=== PATIENT | male | born 1960 | race Caucasian/White ===

== ENCOUNTER 2016-08-16 16:17 | Emergency (ER) | payer OTHER ==
[~2016-08-16] VITALS: Ht 180.3 cm; Wt 147.4 kg
[2016-08-16] MEDS ORDERED: METF500T4 PO (17:56)
[2016-08-16] MEDS ORDERED: PRAV10TA2 PO (17:57)
[2016-08-16] MEDS ORDERED: FURO20TA3 PO (17:57)
[2016-08-16] MEDS ORDERED: GLIM1TAB2 PO (17:59)
[2016-08-16] MEDS ORDERED: RIVA10TA PO (17:59)
[2016-08-16] MEDS ORDERED: CARV3.122 PO (17:59)
--- NOTE | 2016-08-16 18:24 | PHYS DOC ---
Past Medical History Past Medical History: A-Fib, Diabetes-Type II, High Cholesterol, Hypertension, Hypothyroid Past Surgical History: Other Additional Past Surgical Histo: Vasectomy. Alcohol Use: Occasionally Drug Use: None Adult General Chief Complaint Chief Complaint: ABDOMINAL PAIN HPI HPI Patient is a 56 year old female who presents with abdominal pain. Patient reports 2 weeks ago he was lifting heavy batteries at work when he felt a pop in his umbilicus. He has had a small, reducible bulge at that site since then. He became concerned because over the past 2 days he has been having some lower abdominal pain accompanied by nausea and vomiting. No clear inciting or mitigating factors. No fever. He has not taken anything for pain at home. Review of Systems Review of Systems Constitutional: Denies fever or chills Eyes: Denies change in visual acuity or eye pain HENT: Denies nasal congestion or sore throat Respiratory: Cough. Denies shortness of breath Cardiovascular: Denies chest pain GI: Abdominal pain, nausea, vomiting. Denies bloody stools or diarrhea : Denies dysuria or hematuria Musculoskeletal: Denies back pain or joint pain Integument: Denies rash or skin lesions Neurologic: Denies headache, focal weakness or sensory changes Current Medications Current Medications Current Medications Medications (Trade) Dose Ordered Sig/[place] Start Time Stop Time Status Last Admin Dose Admin Info (Do NOT chart on this entry -- for MONITORING) 1 each PRN DAILY PRN 08/16/16 18:45 08/18/16 18:44 Iohexol (Omnipaque 300 Mg/ml) 75 ml 1X ONCE 08/16/16 18:45 08/16/16 18:46 DC 08/16/16 19:19 75 ML Morphine Sulfate 4 mg 1X ONCE 08/16/16 18:30 08/16/16 18:31 DC 08/16/16 19:01 4 MG Ondansetron HCl 4 mg 4 mg 1X ONCE 08/16/16 18:30 08/16/16 18:31 DC 08/16/16 19:00 4 MG Sodium Chloride (Iv Sodium Chloride 0.9% 500ml Bag) 500 ml @ 500 mls/hr 1X ONCE 08/16/16 18:30 08/16/16 19:29 DC 08/16/16 19:03 500 MLS/HR Allergies Allergies Allergies Coded Allergies Type Severity Reaction Last Updated Verified latex Allergy Intermediate Rash. 08/16/16 Yes Uncoded Allergies Type Severity Reaction Last Updated Verified gas-petroleum Allergy Unknown Blisters. 08/16/16 Physical Exam Physical Exam Constitutional: Well developed, well nourished, no acute distress, non-toxic appearance HENT: Normocephalic, atraumatic, bilateral external ears normal Eyes: EOMI, conjunctiva normal, no discharge Neck: Normal range of motion, no stridor Cardiovascular: Heart rate normal, regular rhythm, no murmur Lungs & Thorax: Bilateral breath sounds clear to auscultation Abdomen: Bowel sounds normal, soft, non-distended, lower abdomen mildly TTP without guarding or rebound. Small umbilical hernia soft, easily reducible. Skin: Warm, dry, no erythema, no rash Extremities: No obvious deformity, no edema Neurologic: Alert and oriented X 3, no gross deficits noted Psychologic: Affect normal, judgement normal, mood normal Current Patient Data Vital Signs Vital Signs Date Time Temp Pulse Resp B/P Pulse Ox O2 Delivery O2 Flow Rate FiO2 08/16/16 19:45 96 08/16/16 19:30 158/81 08/16/16 19:01 18 96 Room Air 08/16/16 17:50 98.3 98.3 Lab Values Laboratory Tests Test 08/16/16 18:40 08/16/16 19:00 White Blood Count 6.6x10^3/uL (4.0-11.0) Red Blood Count 4.82x10^6/uL (4.30-5.70) Hemoglobin 15.8g/dL (13.0-17.5) Hematocrit 47.1% (39.0-53.0) Mean Corpuscular Volume 98fL (79-100) Mean Corpuscular Hemoglobin 33pg (25-35) Mean Corpuscular Hemoglobin Concent 33g/dL (31-37) Red Cell Distribution Width 13.5% (11.5-14.5) Platelet Count 174x10^3/uL (140-400) Neutrophils (%) (Auto) 56% (31-73) Lymphocytes (%) (Auto) 18% (24-48) L Monocytes (%) (Auto) 24% (0-9) H Eosinophils (%) (Auto) 1% (0-3) Basophils (%) (Auto) 1% (0-3) Neutrophils # (Auto) 3.7x10^3uL (1.8-7.7) Lymphocytes # (Auto) 1.2x10^3/uL (1.0-4.8) Monocytes # (Auto) 1.6x10^3/uL (0.0-1.1) H Eosinophils # (Auto) 0.0x10^3/uL (0.0-0.7) Basophils # (Auto) 0.1x10^3/uL (0.0-0.2) Segmented Neutrophils % 64% (35-66) Lymphocytes % 19% (24-48) L Monocytes % 16% (0-10) H Metamyelocytes % 1% (0-0) H Platelet Estimate Adequate (ADEQUATE) Sodium Level 137mmol/L (136-145) Potassium Level 4.3mmol/L (3.5-5.1) Chloride Level 100mmol/L (98-107) Carbon Dioxide Level 26mmol/L (21-32) Anion Gap 11 (6-14) Blood Urea Nitrogen 16mg/dL (8-26) Creatinine 1.1mg/dL (0.7-1.3) Estimated GFR (Cockcroft-Gault) 69.2 BUN/Creatinine Ratio 15 (6-20) Glucose Level 182mg/dL (70-99) H Lactic Acid Level 2.2mmol/L (0.4-2.0) H Calcium Level 9.5mg/dL (8.5-10.1) Total Bilirubin 0.9mg/dL (0.2-1.0) Aspartate Amino Transferase (AST) 80U/L (15-37) H Alanine Aminotransferase (ALT) 96U/L (16-63) H Alkaline Phosphatase 76U/L (46-116) Total Protein 7.4g/dL (6.4-8.2) Albumin 3.9g/dL (3.4-5.0) Albumin/Globulin Ratio 1.1 (1.0-1.7) Lipase 202U/L (73-393) Urine Collection Type Unknown Urine Color Yellow Urine Clarity Clear Urine pH 6.5 Urine Specific [place] 1.025 Urine Protein 30mg/dL (NEG-TRACE) Urine Glucose (UA) Negativemg/dL (NEG) Urine Ketones (Stick) Negativemg/dL (NEG) Urine Blood Negative (NEG) Urine Nitrite Negative (NEG) Urine Bilirubin Small (NEG) Urine Urobilinogen Dipstick 1.0mg/dL (0.2 mg/dL) Urine Leukocyte Esterase Negative (NEG) Urine RBC 0/HPF (0-2) Urine WBC Occ/HPF (0-4) Urine Squamous Epithelial Cells Occ/LPF Urine Bacteria Few/HPF (0-FEW) Urine Mucus Slight/LPF Laboratory Tests 08/16/16 18:40 Laboratory Tests 08/16/16 18:40 EKG EKG [] Radiology/Procedures Radiology/Procedures CT A/P: IMPRESSION 1. Small fat containing umbilical hernia. A slight amount of fat stranding, may indicate mild inflammation. 2. Fatty liver disease. 3. Cardiac chamber enlargement. Course & Med Decision Making Course & Med Decision Making Pertinent Labs and Imaging studies reviewed. (See chart for details) Patient is 56-year-old male who presents with abdominal pain, nausea/vomiting. May simply be gastroenteritis, however he does have a relatively new umbilical hernia so will obtain CT abdomen/pelvis for visualization of this. Will also check labs. IV fluids, pain meds, nausea meds ordered for relief of symptoms. Imaging results as above. Labs notable only for mildly elevated lactic acid. I discussed case with zafar Escalante to send patient home at this time. We will however recheck lactic acid to ensure it is not going up. Discussed results with patient. Repeat lactic acid ordered. Assuming this value is ok (ie not increased), will plan discharge home with prescription for pain meds, nausea meds, instructions for follow-up, return precautions. Patient care turned over to Dr. Cook to follow up lactic acid. Dragmariana Disclaimer Dragon Disclaimer This electronic medical record was generated, in whole or in part, using a voice recognition dictation system. Departure Departure Impression: Primary Impression: Abdominal pain Additional Impressions: Nausea & vomiting Umbilical hernia Disposition: HOME, SELF-CARE Condition: IMPROVED Referrals: ADENIKE CHAIREZ MD Patient Instructions: Abdominal Pain (Nonspecific), Hernia Additional Instructions: Thank you for allowing us to provide care today in the Emergency Department. Take the provided medication as directed. Use caution after taking the pain medication as it can make you drowsy. Schedule a follow up appointment with a surgeon using the provided contact information. Return promptly to the Emergency Department if you develop any new or concerning symptoms. Scripts Ondansetron (Zofran Odt)4 Mg Tab.rapdis1 Tab SL Q8HRS PRN NAUSEA #15 TAB Prov:ROXANE PEARCE MD 08/16/16 Hydrocodone/Apap 5-325 ([place] 5-325 Tablet)1 Each Tablet1 Tab PO PRN Q6HRS PRN PAIN #15 TAB Prov:ROXANE PEARCE MD 08/16/16 Problem Qualifiers ROXANE PEARCE MD Aug 16, 2016 18:24
[2016-08-16] MEDS ORDERED: IV NORMAL SALINE 500ML BAG 500 ML IV ONE (18:30)
[2016-08-16] MEDS ORDERED: MORPHINE SULFATE 4 MG/ML DISP.SYRIN. IV ONE (18:30)
[2016-08-16] MEDS ORDERED: ONDANSETRON PF 4 MG/2 ML VIAL. IV ONE (18:30)
[2016-08-16] MEDS ORDERED: CONTRAST GIVEN MC PRN (18:45)
[2016-08-16] MEDS ORDERED: IOHEXOL 300 MG/ML 75 ML VIAL IV ONE (18:45)
[2016-08-16 19:02] LABS: BASO # 0.1 x10^3/uL (0.0-0.2); BASO % 1 % (0-3); EOS % 1 % (0-3); HEMATOCRIT 47.1 % (39.0-53.0); HEMOGLOBIN 15.8 g/dL (13.0-17.5); LYMPH # 1.2 x10^3/uL (1.0-4.8); LYMPH % 18 % (24-48); MEAN CORPUSCULAR HEMOGLOBIN 33 pg (25-35); MEAN CORPUSCULAR HGB CONC 33 g/dL (31-37); MEAN CORPUSCULAR VOLUME 98 fL (79-100); MONO % 24 % (0-9); NEUT % 56 % (31-73); PLATELET COUNT 174 x10^3/uL (140-400); RED BLOOD COUNT 4.82 x10^6/uL (4.30-5.70); RED CELL DISTRIBUTION WIDTH 13.5 % (11.5-14.5); WHITE BLOOD COUNT 6.6 x10^3/uL (4.0-11.0)
[2016-08-16 19:06] LABS: CALCIUM 9.5 mg/dL (8.5-10.1); CREATININE 1.1 mg/dL (0.7-1.3); GFR 69.2; POTASSIUM 4.3 mmol/L (3.5-5.1)
[2016-08-16 19:11] LABS: ALBUMIN 3.9 g/dL (3.4-5.0); ALBUMIN/GLOBULIN RATIO 1.1 (1.0-1.7); TOTAL BILIRUBIN 0.9 mg/dL (0.2-1.0); TOTAL PROTEIN 7.4 g/dL (6.4-8.2)
[2016-08-16 19:17] LABS: BILIRUBIN,URINE SMALL (NEG); GLUCOSE,URINE NEGATIVE (NEG); NITRITE,URINE NEGATIVE (NEG); PH,URINE 6.5; PROTEIN,URINE 30 mg/dL (NEG-TRACE)
[2016-08-16 19:33] LABS: BACTERIA,URINE FEW /HPF (0-FEW); RBC,URINE 0 /HPF (0-2); SQUAMOUS EPITHELIAL CELL,UR OCC /LPF; WBC,URINE OCC /HPF (0-4)
--- NOTE | 2016-08-16 19:43 | RAD ---
PROCEDURE CT abdomen pelvis with intravenous contrast. HISTORY Lifting heavy battery on July 31, 2016 and felt a pop in the lower abdomen. Swelling and pain with defecation. TECHNIQUE After administration of intravenous contrast only, 75 mL Omnipaque 300, CT of the abdomen and pelvis was performed. Exposure: One or more of the following individualized dose reduction techniques were utilized for this examination: 1. Automated exposure control. 2. Adjustment of the mA and/or kV according to patient size. 3. Use of iterative reconstruction technique. COMPARISON None. FINDINGS Evaluation of enteric structures may be limited by lack of oral contrast. Images of lower chest demonstrate enlargement of cardiac chambers. Fatty liver disease is seen. Spleen, pancreas, gallbladder, and bilateral adrenal glands are unremarkable. Bilateral kidneys enhance symmetrically. Urinary bladder is unremarkable. No bowel obstruction or inflammation is identified. Colonic diverticulosis is noted, but no diverticulitis is appreciated. Appendix is without evidence of inflammation. Small fat containing umbilical hernia is present. There does appear to be a slight amount of fat stranding. IMPRESSION 1. Small fat containing umbilical hernia. A slight amount of fat stranding, may indicate mild inflammation. 2. Fatty liver disease. 3. Cardiac chamber enlargement. Electronically signed by: Guy Osman MD (Aug 16, 2016 19:42:26)
[2016-08-16 20:48] LABS: PLT ESTIMATE ADEQUATE (ADEQUATE)
[2016-08-16] MEDS ORDERED: HYDR-971 PO (21:31)
[2016-08-16] MEDS ORDERED: ONDA4TAB10 SL (21:31)
[2016-08-16 22:15] VITALS: BP 166/98
== END 2016-08-16 22:25 | disposition home or self-care (01) ==
LOC: ER 16:17
DX: K42.9 Umbilical hernia without obstruction or gangrene (principal); R11.2 Nausea with vomiting, unspecified; E03.9 Hypothyroidism, unspecified; E11.9 Type 2 diabetes mellitus without complications; E78.00 Pure hypercholesterolemia, unspecified; I10 Essential (primary) hypertension; I48.91 Unspecified atrial fibrillation; Z98.52 Vasectomy status; Z88.8 Allergy status to other drugs, medicaments and biological substances; Z91.040 Latex allergy status
CPT/HCPCS: 36415; 74177; 80053; 81001; 83605; 83690; 85007; 85027; 96361; 96374; 96375; 99285; J2270; J2405; J7040; Q9967

== ENCOUNTER 2016-08-28 12:40 | Day surgery (SDC) | payer OTHER ==
[~2016-08-28] VITALS: Ht 180.3 cm; Wt 142.9 kg
[~2016-08-28 12:40] MED LIST: CARV3.122 PO; CEFAZOLIN 2GM PREMIX 50 ML IV PRN; FURO20TA3 PO; GLIM1TAB2 PO; HYDR-971 PO; LEVO75TA5 PO; LISI-334 PO; METF500T4 PO; ONDA4TAB10 SL; POTA10CA PO; PRAV10TA2 PO; RIVA10TA PO
[2016-08-28] MEDS ORDERED: PROPOFOL 20 ML IV ONE (13:18)
[2016-08-28] MEDS ORDERED: SUCCINYLCHOLINE 200 MG/10 ML VIAL. ONE (13:19)
[2016-08-28] MEDS ORDERED: ROCURONIUM 50 MG/5 ML VIAL. ONE (13:19)
[2016-08-28] MEDS ORDERED: LIDOCAINE 2% 100 MG/5 ML DISP.SYRIN. ONE (13:19)
[2016-08-28] MEDS ORDERED: FENTANYL PF 250 MCG/5 ML VIAL. ONE (13:21)
[2016-08-28] MEDS ORDERED: FAMOTIDINE 20 MG/2 ML VIAL ONE (13:21)
[2016-08-28] MEDS ORDERED: DEXAMETHASONE SOD PHOS 20 MG/5 ML VIAL. ONE (13:21)
[2016-08-28] MEDS ORDERED: ONDANSETRON PF 4 MG/2 ML VIAL. ONE (13:21)
[2016-08-28] MEDS ORDERED: BUPIVAC MPF-EPI 0.5%-1:200000 30 ML VIAL. ONE (13:41)
[2016-08-28] MEDS ORDERED: IV RINGERS,LACTATED 1000ML 1,000 ML IV ONE (14:00)
[2016-08-28] MEDS ORDERED: MIDAZOLAM HCL 2 MG/2 ML VIAL. ONE (14:00)
[2016-08-28] MEDS ORDERED: KETOROLAC 30 MG/ML SYRINGE FOR OR. INJ ONE (14:34)
[2016-08-28] MEDS ORDERED: PHENYLEPHRINE in 0.9% NACL PF 1 MG/10 ML DISP.SYRIN. IV ONE (14:42)
[2016-08-28] MEDS ORDERED: DESFLURANE 31 TO 60 MINUTES IH ONE (15:07)
--- NOTE | 2016-08-28 15:27 | PDOC4 ---
Operative Note Operative Note Operative Note: Preoperative Diagnosis: Umbilical hernia Postoperative Diagnosis: Umbilical hernia Procedure: Umbilical hernia repair with mesh Surgeon: Je Anesthesia: Gen. Specimen: None EBL: 10 mL Drains: None Complications: None Indication: The patient is a 56-year-old male who is referred with a reducible umbilical hernia. He requests operative repair. The details and risks of surgery were discussed including the potential use of mesh. Risks include bleeding, infection, recurrence, pain, anesthetic risk, potential need for additional surgery or procedure. He understands and would like to proceed. Description: The patient was taken to the operating room and placed supine on the operating table. Gen. anesthesia was performed. The abdomen was prepped with ChloraPrep and draped in a standard surgical manner. An infraumbilical incision was made in the skin with a scalpel. Cautery dissection was carried down to the fascia. The umbilical ring tissue was elevated off the fascia exposing the hernia defect. The patient had a significant amount of protuberant preperitoneal fat. This was reduced and a preperitoneal plane was then developed circumferentially deep to the fascial defect. A medium sized Ventralex ST mesh was then placed into the newly formed preperitoneal space. With the tail the mesh was pulled up against the abdominal wall. The mesh provided good coverage circumferentially of the defect. The mesh was then sutured into position with interrupted 0 Prolene stitches placed at the 12, 3, 6 , 9 o'clock position in a horizontal mattress fashion. The attenuated fascia was closed over the mesh with interrupted 0 Prolene. The umbilical tissue was resecured to the fascia with 0 Vicryl. The subcutaneous tissue was approximated with interrupted 3-0 Vicryl. The skin was then closed with a running 4-0 Monocryl suture. The incision was infiltrated with half percent Marcaine with epinephrine. Steri-Strips and a dressing were applied. The patient tolerated the procedure well and was sent to the recovery room in stable condition. At the end of the case all counts were correct. ADENIKE CHAIREZ MD Aug 28, 2016 15:27
--- NOTE | 2016-08-28 15:29 | DISCH ---
DISCHARGE INSTRUCTIONS Condition on Discharge Condition on Discharge: Stable Activity After Discharge Activity Instructions for Disc: Other, see below (no lifting over 20 lbs, no driving while taking pain meds) Diet after Discharge Diet after Discharge: Regular Wound Incision Care Wound/Incision Care: Other, see below (keep dressing clean and dry X 72 hours, may then remove and shower) Follow-Up Follow up with: Dr Chairez in 2 weeks, call for appt [phone] ADENIKE CHAIREZ MD Aug 28, 2016 15:28
[2016-08-28] MEDS ORDERED: OXYC-323 PO (15:33)
[2016-08-28] MEDS ORDERED: OXYCODONE/APAP 5/325 TABLET. PO PRN ×2 (15:45)
[2016-08-28 16:22] VITALS: BP 143/87
[2016-08-28] MEDS ORDERED: HYDROMORPHONE 2 MG/ML VIAL. IV PRN (16:30)
[2016-08-28] MEDS ORDERED: MORPHINE SULFATE 2 MG/ML DISP.SYRIN. IV PRN (16:30)
[2016-08-28] MEDS ORDERED: FENTANYL PF 100 MCG/2 ML VIAL. IV PRN (16:30)
== END 2016-08-28 17:05 | disposition home or self-care (01) ==
LOC: SURG 12:40
PROVIDERS: ATTEND Surgery
DX: K42.9 Umbilical hernia without obstruction or gangrene (principal); E78.00 Pure hypercholesterolemia, unspecified; I48.91 Unspecified atrial fibrillation; I10 Essential (primary) hypertension; E66.9 Obesity, unspecified; E11.9 Type 2 diabetes mellitus without complications; Z72.89 Other problems related to lifestyle
CPT/HCPCS: 49585; 82947; C1781; J0330; J0690; J1100; J1885; J2250; J2370; J2405; J2704; J3010; J3490; S0028

== ENCOUNTER 2016-09-10 15:46 | Inpatient (IN) | payer OTHER ==
[~2016-09-10] VITALS: Ht 180.3 cm; Wt 145.6 kg
[~2016-09-10 15:46] MED LIST changes: -CEFAZOLIN 2GM PREMIX 50 ML IV PRN; +OXYC-323 PO
[2016-09-10] MEDS ORDERED: IV NORMAL SALINE 1000ML BAG 1,000 ML IV ONE (17:30)
[2016-09-10] MEDS ORDERED: VANCOMYCIN 2 GM in IV NORMAL SALINE 500ML BAG 500 ML IV ONE (17:30)
[2016-09-10] MEDS ORDERED: LORAZEPAM 2 MG/ML VIAL IV ONE (17:45)
[2016-09-10 17:55] LABS: BASO # 0.1 x10^3/uL (0.0-0.2); BASO % 1 % (0-3); EOS % 2 % (0-3); HEMATOCRIT 50.3 % (39.0-53.0); LYMPH # 1.6 x10^3/uL (1.0-4.8); LYMPH % 20 % (24-48); MEAN CORPUSCULAR HEMOGLOBIN 33 pg (25-35); MEAN CORPUSCULAR HGB CONC 34 g/dL (31-37); MEAN CORPUSCULAR VOLUME 98 fL (79-100); MONO % 12 % (0-9); NEUT % 66 % (31-73); PLATELET COUNT 164 x10^3/uL (140-400); RED BLOOD COUNT 5.16 x10^6/uL (4.30-5.70); RED CELL DISTRIBUTION WIDTH 13.5 % (11.5-14.5); WHITE BLOOD COUNT 7.9 x10^3/uL (4.0-11.0)
[2016-09-10 18:10] LABS: CALCIUM 9.9 mg/dL (8.5-10.1); CREATININE 0.8 mg/dL (0.7-1.3)
[2016-09-10 18:11] LABS: POTASSIUM 4.5 mmol/L (3.5-5.1)
[2016-09-10] MEDS ORDERED: CONTRAST GIVEN MC PRN (18:15)
[2016-09-10] MEDS ORDERED: IOHEXOL 300 MG/ML 75 ML VIAL IV ONE (18:15)
[2016-09-10 18:17] LABS: TOTAL BILIRUBIN 1.2 mg/dL (0.2-1.0)
[2016-09-10 18:35] LABS: OBC FLU VALID
[2016-09-10 18:40] LABS: BILIRUBIN,URINE NEGATIVE (NEG); GLUCOSE,URINE NEGATIVE (NEG); NITRITE,URINE NEGATIVE (NEG); PROTEIN,URINE 100 mg/dL (NEG-TRACE)
--- NOTE | 2016-09-10 18:54 | RAD ---
PROCEDURE CT abdomen pelvis with intravenous contrast. HISTORY Postoperative umbilical hernia. Evaluate for abscess. TECHNIQUE After administration of intravenous contrast only, 75 mL Omnipaque 300, CT of the abdomen and pelvis was performed. Exposure: One or more of the following individualized dose reduction techniques were utilized for this examination: 1. Automated exposure control. 2. Adjustment of the mA and/or kV according to patient size. 3. Use of iterative reconstruction technique. COMPARISON CT abdomen pelvis August 16, 2016. FINDINGS Evaluation of enteric structures may be limited by lack of oral contrast. Fatty liver disease is seen. Spleen is borderline enlarged measuring 13.5 centimeters in axial dimension. Pancreas, gallbladder, and bilateral adrenal glands are unremarkable. Bilateral kidneys enhance symmetrically. No bowel obstruction or inflammation is identified. Appendix is without evidence of inflammation. Urinary bladder is unremarkable. There has been interval umbilical hernia repair. At the repair site, there is a subcutaneous fluid collection which measures 6.3 x 5.5 centimeters in axial dimension x 6.6 centimeters in craniocaudal dimension. This is nonspecific and could represent postoperative seroma versus hematoma versus abscess. IMPRESSION 1. Interval umbilical hernia repair. At the surgical site, there is a nonspecific fluid collection measuring 6.3 x 5.5 x 6.6 centimeters. This could represent postoperative seroma versus hematoma versus abscess. 2. No acute intraperitoneal process identified. Electronically signed by: Guy Osman MD (Sep 10, 2016 18:53:14)
[2016-09-10 19:07] LABS: BACTERIA,URINE 0 /HPF (0-FEW)
--- NOTE | 2016-09-10 19:11 | PHYS DOC ---
Past Medical History Past Medical History: A-Fib, Anxiety, CHF, Diabetes-Type II, High Cholesterol, Hypertension, Hypothyroid Past Surgical History: Other Additional Past Surgical Histo: Vasectomy, umbilical hernia Alcohol Use: Occasionally Drug Use: None Adult General Chief Complaint Chief Complaint: POST-OP PROBLEM HPI HPI 56-year-old male who had an umbilical hernia repair by Dr. Wooten on August 28 presents with increased pain and swelling around his incision and high fever. Patient states he feels like his fever broke because he was profusely sweating on arrival. [] Review of Systems Review of Systems Constitutional: Denies fever or chills [] Eyes: Denies change in visual acuity, redness, or eye pain [] HENT: Denies nasal congestion or sore throat [] Respiratory: Denies cough or shortness of breath [] Cardiovascular: No additional information not addressed in HPI [] GI: Denies abdominal pain, nausea, vomiting, bloody stools or diarrhea [] : Denies dysuria or hematuria [] Musculoskeletal: Denies back pain or joint pain [] Integument: Denies rash or skin lesions [] Neurologic: Denies headache, focal weakness or sensory changes [] Endocrine: Denies polyuria or polydipsia [] Current Medications Current Medications Current Medications Medications (Trade) Dose Ordered Sig/Ginan Start Time Stop Time Status Last Admin Dose Admin Fentanyl Citrate 50 mcg 50 mcg PRN Q1HR PRN 09/10/16 19:30 09/11/16 19:29 Info (Do NOT chart on this entry -- for MONITORING) 1 each PRN DAILY PRN 09/10/16 18:15 09/12/16 18:14 Iohexol (Omnipaque 300 Mg/ml) 75 ml 1X ONCE 09/10/16 18:15 09/10/16 18:16 DC 09/10/16 18:23 75 ML Lorazepam (Ativan) 2 mg 1X ONCE 09/10/16 17:45 09/10/16 17:46 DC 09/10/16 17:38 2 MG Ondansetron HCl (Zofran) 4 mg PRN Q8HRS PRN 09/10/16 19:30 09/11/16 19:29 Sodium Chloride (Iv Sodium Chloride 0.9% 1000ml Bag) 1,000 ml @ 150 mls/hr Q6H40M 09/10/16 19:19 3/14/17 21:10 DC Vancomycin HCl (Vanco Per Pharmacy) 1 each PRN DAILY PRN 09/10/16 19:30 UNV Vancomycin HCl 1 each 1 each PRN DAILY PRN 09/10/16 17:30 09/10/16 19:29 1 EACH Vancomycin HCl/ Sodium Chloride (Iv Sodium Chloride 0.9% 500ml Bag) 500 ml @ 250 mls/hr 1X ONCE 09/10/16 17:30 09/10/16 19:29 DC 09/10/16 17:38 250 MLS/HR Allergies Allergies Allergies Coded Allergies Type Severity Reaction Last Updated Verified latex Allergy Intermediate Rash,skin tear off 08/28/16 Yes Physical Exam Physical Exam Constitutional: Well developed, well nourished, appears acutely ill. [] HENT: Normocephalic, atraumatic, bilateral external ears normal, oropharynx moist, no oral exudates, nose normal. [] Eyes: PERRLA, EOMI, conjunctiva normal, no discharge. [] Neck: Normal range of motion, no tenderness, supple, no stridor. [] Cardiovascular:Heart rate regular rhythm, no murmur [] Lungs & Thorax: Bilateral breath sounds clear to auscultation [] Abdomen: A well-healed surgical incision but there is some underlying tenderness and fluctuance around the site.. [] Skin: Warm, dry, no erythema, no rash. [] Back: No tenderness, no CVA tenderness. [] Extremities: No tenderness, no cyanosis, no clubbing, ROM intact, no edema. [] Neurologic: Alert and oriented X 3, normal motor function, normal sensory function, no focal deficits noted. [] Psychologic: Affect normal, judgement normal, mood normal. [] Current Patient Data Vital Signs Vital Signs Date Time Temp Pulse Resp B/P Pulse Ox O2 Delivery O2 Flow Rate FiO2 09/10/16 19:21 86 174/86 96 Room Air 09/10/16 19:07 99.1 99.1 09/10/16 18:54 18 Lab Values Laboratory Tests Test 09/10/16 17:30 09/10/16 17:40 White Blood Count 7.9x10^3/uL (4.0-11.0) Red Blood Count 5.16x10^6/uL (4.30-5.70) Hemoglobin 17.0g/dL (13.0-17.5) Hematocrit 50.3% (39.0-53.0) Mean Corpuscular Volume 98fL (79-100) Mean Corpuscular Hemoglobin 33pg (25-35) Mean Corpuscular Hemoglobin Concent 34g/dL (31-37) Red Cell Distribution Width 13.5% (11.5-14.5) Platelet Count 164x10^3/uL (140-400) Neutrophils (%) (Auto) 66% (31-73) Lymphocytes (%) (Auto) 20% (24-48) L Monocytes (%) (Auto) 12% (0-9) H Eosinophils (%) (Auto) 2% (0-3) Basophils (%) (Auto) 1% (0-3) Neutrophils # (Auto) 5.2x10^3uL (1.8-7.7) Lymphocytes # (Auto) 1.6x10^3/uL (1.0-4.8) Monocytes # (Auto) 0.9x10^3/uL (0.0-1.1) Eosinophils # (Auto) 0.1x10^3/uL (0.0-0.7) Basophils # (Auto) 0.1x10^3/uL (0.0-0.2) Urine Collection Type Unknown Urine Color Yellow Urine Clarity Clear Urine pH 6.0 Urine Specific [place] 1.015 Urine Protein 100mg/dL (NEG-TRACE) Urine Glucose (UA) Negativemg/dL (NEG) Urine Ketones (Stick) Negativemg/dL (NEG) Urine Blood Negative (NEG) Urine Nitrite Negative (NEG) Urine Bilirubin Negative (NEG) Urine Urobilinogen Dipstick 1.0mg/dL (0.2 mg/dL) Urine Leukocyte Esterase Negative (NEG) Urine RBC 1-2/HPF (0-2) Urine WBC 1-4/HPF (0-4) Urine Bacteria 0/HPF (0-FEW) Urine Hyaline Casts Moderate/HPF Urine Mucus Slight/LPF Sodium Level 139mmol/L (136-145) Potassium Level 4.5mmol/L (3.5-5.1) Chloride Level 100mmol/L (98-107) Carbon Dioxide Level 26mmol/L (21-32) Anion Gap 13 (6-14) Blood Urea Nitrogen 13mg/dL (8-26) Creatinine 0.8mg/dL (0.7-1.3) Estimated GFR (Cockcroft-Gault) 100.0 BUN/Creatinine Ratio 16 (6-20) Glucose Level 163mg/dL (70-99) H Lactic Acid Level 2.8mmol/L (0.4-2.0) H Calcium Level 9.9mg/dL (8.5-10.1) Total Bilirubin 1.2mg/dL (0.2-1.0) H Aspartate Amino Transferase (AST) 77U/L (15-37) H Alanine Aminotransferase (ALT) 98U/L (16-63) H Alkaline Phosphatase 80U/L (46-116) Total Protein 8.0g/dL (6.4-8.2) Albumin 4.0g/dL (3.4-5.0) Albumin/Globulin Ratio 1.0 (1.0-1.7) Influenza Type A Antigen Negative (NEGATIVE) Influenza Type B Antigen Negative (NEGATIVE) Laboratory Tests 09/10/16 17:30 Laboratory Tests 09/10/16 17:30 EKG EKG [] Radiology/Procedures Radiology/Procedures [] Impressions: PROCEDURE: ABD PELV W/ IV CONTRAST ONLY PROCEDURE CT abdomen pelvis with intravenous contrast. HISTORY Postoperative umbilical hernia. Evaluate for abscess. TECHNIQUE After administration of intravenous contrast only, 75 mL Omnipaque 300, CT of the abdomen and pelvis was performed. Exposure: One or more of the following individualized dose reduction techniques were utilized for this examination: 1. Automated exposure control. 2. Adjustment of the mA and/or kV according to patient size. 3. Use of iterative reconstruction technique. COMPARISON CT abdomen pelvis August 16, 2016. FINDINGS Evaluation of enteric structures may be limited by lack of oral contrast. Fatty liver disease is seen. Spleen is borderline enlarged measuring 13.5 centimeters in axial dimension. Pancreas, gallbladder, and bilateral adrenal glands are unremarkable. Bilateral kidneys enhance symmetrically. No bowel obstruction or inflammation is identified. Appendix is without evidence of inflammation. Urinary bladder is unremarkable. There has been interval umbilical hernia repair. At the repair site, there is a subcutaneous fluid collection which measures 6.3 x 5.5 centimeters in axial dimension x 6.6 centimeters in craniocaudal dimension. This is nonspecific and could represent postoperative seroma versus hematoma versus abscess. IMPRESSION 1. Interval umbilical hernia repair. At the surgical site, there is a nonspecific fluid collection measuring 6.3 x 5.5 x 6.6 centimeters. This could represent postoperative seroma versus hematoma versus abscess. 2. No acute intraperitoneal process identified. Course & Med Decision Making Course & Med Decision Making Pertinent Labs and Imaging studies reviewed. (See chart for details) [ED course: Evaluation reveals a 56-year-old male with concern for a postop abscess. Dr. Wallis came down to evaluate the patient and agreed the patient needed be admitted for further evaluation and likely I&D of the abscess in the morning. In the meantime we'll start the patient on vancomycin to cover for possible staph.] Dragon Disclaimer Dragon Disclaimer This electronic medical record was generated, in whole or in part, using a voice recognition dictation system. Departure Departure Impression: Primary Impression: Fever Additional Impression: Incisional abscess Disposition: 09 ADMITTED INPATIENT Condition: STABLE Referrals: NO PCP (PCP) Problem Qualifiers Primary Impression: Fever Fever type: unspecified Qualified Code: R50.9 - Fever, unspecified Additional Impression: Incisional abscess Encounter type: initial encounter Qualified Code: T81.4XXA - Infection following a procedure, initial encounter VANDA ZEE DO Sep 10, 2016 19:11
[2016-09-10] MEDS ORDERED: IV NORMAL SALINE 1000ML BAG 1,000 ML IV SCH (19:19)
[2016-09-10] MEDS: VANCOMYCIN PER PHARMACY MC PRN (19:29)
[2016-09-10] MEDS ORDERED: VANCOMYCIN PER PHARMACY MC PRN (19:30)
[2016-09-10] MEDS ORDERED: FENTANYL PF 100 MCG/2 ML VIAL. IV PRN (19:30)
[2016-09-10] MEDS ORDERED: ONDANSETRON PF 4 MG/2 ML VIAL. IV PRN (19:30)
[2016-09-10 20:45] VITALS: BP 135/84
[2016-09-10] MEDS ORDERED: DEXTROSE 50% 25 GM / 50ML DISP.SYRIN. IV PRN (21:15)
[2016-09-10] MEDS ORDERED: OXYCODONE/APAP 5/325 TABLET. PO PRN (21:15)
[2016-09-10] MEDS: GLIMEPIRIDE 2 MG TABLET PO SCH (22:17)
[2016-09-10] MEDS: POTASSIUM CHLORIDE 10 MEQ TABLET.ER. PO SCH (22:18)
[2016-09-10] MEDS: LISINOPRIL 20 MG TABLET PO SCH (22:19)
[2016-09-10] MEDS: ALPRAZOLAM 0.5 MG TABLET PO PRN (22:19)
[2016-09-10] MEDS: ATORVASTATIN CALCIUM 10 MG TABLET. PO SCH (22:19)
[2016-09-10 23:00] VITALS: BP 151/88
--- NOTE | 2016-09-10 23:57 | HP ---
ADMIT DATE: 09/10/2016 CHIEF COMPLAINT: Abdominal pain, post-abdominal abscess. HISTORY OF PRESENT ILLNESS: The patient is a 56-year-old gentleman with past medical history of AFib, CHF, diabetes type 2 who had undergone umbilical hernia repair with mesh placement by Dr. Wooten on 08/28. Initially, he recovered to fine, but over the past week, he has had worsening abdominal pain. When he mentioned this to his boss at work, this is a workman's compensation case, he was referred to initially urgent care who then referred him on to the Emergency Room for evaluation by his surgeon. The patient relates that he had subjective fevers, but explains that he has episodes of sweating and flushing from time to time, which has been going on for years. Pain is localized in the left lower corner of his umbilicus close to the incisional scar. He denies any nausea, vomiting, any diarrhea. PAST MEDICAL HISTORY: Atrial fibrillation, CHF, diabetes mellitus, hypercholesterolemia, hypertension, hypothyroidism, anxiety. SURGICAL HISTORY: Positive for umbilical hernia repair 14 days ago, vasectomy. FAMILY HISTORY: Positive for diabetes, hypertension. SOCIAL HISTORY: Lives by himself. Works at [employer], never smoked, occasional alcohol use. ALLERGIES: LATEX. MEDICATIONS: MAR reconciled with home medications. REVIEW OF SYSTEMS: Positive as per HPI with abdominal pain. Rest of organ system review is negative, say for episodic flushing and hot flashes. PHYSICAL EXAMINATION: VITAL SIGNS: Show blood pressure of 174/86, heart rate of 86, respiratory rate of 18. He is afebrile. GENERAL: This is a massively obese 56-year-old gentleman, alert and oriented, in no acute distress. Face has tamiko complexion. HEENT: Shows no scleral icterus. NECK: Supple. LUNGS: Clear to auscultation bilaterally. HEART: Regular rate and rhythm. ABDOMEN: Has positive bowel sounds, soft, tenderness to palpation in mid abdomen. The surgical incision below the umbilicus is well healed, but has erythema at its left lateral border of diameter of about 3 cm, umbilicus is slightly protruding, no hernia is palpated. EXTREMITIES: Show no edema. SKIN: Warm, soft and dry. LABORATORY DATA: CBC with WBC of 7.9, hemoglobin of 17 with a hematocrit of 50, MCV of 98, platelets are at 164. Chemistries with BUN and creatinine of 13 and 0.8, normal electrolytes, glucose at 163, lactate at 2.8. LFTs with total bilirubin of 1.2, AST, ALT of 77 and 98. Of note, LFTs have been elevated at time of previous surgery as well. RADIOGRAPHIC FINDINGS: CT of the abdomen shows interval umbilical hernia repair. At the surgical site, there is a nonspecific fluid collection measuring 6.3 x 5.6 x 6.6 cm, which could represent a postoperative seroma versus hematoma versus abscess. ASSESSMENT AND PLAN: The patient is a 56-year-old gentleman with AFib, CAD, diabetes who presents 2 weeks postop from his umbilical hernia repair with suspected abscess. Small fluid collection above the mesh placement. Surgical consult will be obtained to evaluate. No clearly demarcated fluid collection that could be aspirated. We will treat empirically for now. ID consult will be obtained as well in the morning. For his diabetes mellitus, he is typically on oral regimen only. We will hold the metformin for now, given intravenous contrast administration earlier. We will add insulin sliding scale to his regimen. The patient has a history of CHF with worsening cough with clear phlegm and shortness of breath. Obtain chest x-ray. We will obtain echo and cardiac consult in the morning as well. 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 ELENITA BENDER MD DR: JOSSUE/nts JOB#: [id number] / [id number] JARRELL
[2016-09-11] MEDS: OXYCODONE/APAP 5/325 TABLET. PO PRN (02:12)
[2016-09-11 03:00] VITALS: BP 128/80
[2016-09-11] MEDS: VANCOMYCIN 2 GM in IV NORMAL SALINE 500ML BAG 500 ML IV SCH ×2 (05:56→19:09)
[2016-09-11] MEDS: LEVOTHYROXINE 75 MCG TABLET PO SCH (05:57)
[2016-09-11 07:00] VITALS: BP 157/93
[2016-09-11 07:28] LABS: ALBUMIN 3.3 g/dL (3.4-5.0); GFR 77.3; TOTAL BILIRUBIN 1.6 mg/dL (0.2-1.0); TOTAL PROTEIN 6.6 g/dL (6.4-8.2)
[2016-09-11 07:49] LABS: BASO % 1 % (0-3); EOS % 3 % (0-3); HEMATOCRIT 46.6 % (39.0-53.0); HEMOGLOBIN 15.6 g/dL (13.0-17.5); LYMPH # 0.9 x10^3/uL (1.0-4.8); LYMPH % 16 % (24-48); MEAN CORPUSCULAR HEMOGLOBIN 33 pg (25-35); MEAN CORPUSCULAR HGB CONC 33 g/dL (31-37); MEAN CORPUSCULAR VOLUME 99 fL (79-100); MONO % 11 % (0-9); NEUT % 68 % (31-73); PLATELET COUNT 115 x10^3/uL (140-400); RED BLOOD COUNT 4.73 x10^6/uL (4.30-5.70); RED CELL DISTRIBUTION WIDTH 13.2 % (11.5-14.5); WHITE BLOOD COUNT 5.5 x10^3/uL (4.0-11.0)
[2016-09-11] MEDS ORDERED: CARVEDILOL 3.125 MG TABLET PO SCH (08:00)
[2016-09-11] MEDS: INSULIN ASPART 300 UNITS/3 ML INSULN.PEN SQ SCH ×3 (08:00→17:39)
--- NOTE | 2016-09-11 08:01 | PDOC ---
Infectious Disease Note ROS ROS Vital Sign Vital Signs Vital Signs Date Time Temp Pulse Resp B/P Pulse Ox O2 Delivery O2 Flow Rate FiO2 09/11/16 03:15 20 96 Room Air 09/11/16 03:00 98.2 45 128/80 98.2 Labs Lab Laboratory Tests Test 09/10/16 17:30 09/10/16 17:40 09/10/16 20:58 09/11/16 06:50 White Blood Count 7.9x10^3/uL (4.0-11.0) 5.5x10^3/uL (4.0-11.0) Red Blood Count 5.16x10^6/uL (4.30-5.70) 4.73x10^6/uL (4.30-5.70) Hemoglobin 17.0g/dL (13.0-17.5) 15.6g/dL (13.0-17.5) Hematocrit 50.3% (39.0-53.0) 46.6% (39.0-53.0) Mean Corpuscular Volume 98fL (79-100) 99fL (79-100) Mean Corpuscular Hemoglobin 33pg (25-35) 33pg (25-35) Mean Corpuscular Hemoglobin Concent 34g/dL (31-37) 33g/dL (31-37) Red Cell Distribution Width 13.5% (11.5-14.5) 13.2% (11.5-14.5) Platelet Count 164x10^3/uL (140-400) 115x10^3/uL (140-400) Neutrophils (%) (Auto) 66% (31-73) 68% (31-73) Lymphocytes (%) (Auto) 20% (24-48) 16% (24-48) Monocytes (%) (Auto) 12% (0-9) 11% (0-9) Eosinophils (%) (Auto) 2% (0-3) 3% (0-3) Basophils (%) (Auto) 1% (0-3) 1% (0-3) Neutrophils # (Auto) 5.2x10^3uL (1.8-7.7) 3.8x10^3uL (1.8-7.7) Lymphocytes # (Auto) 1.6x10^3/uL (1.0-4.8) 0.9x10^3/uL (1.0-4.8) Monocytes # (Auto) 0.9x10^3/uL (0.0-1.1) 0.6x10^3/uL (0.0-1.1) Eosinophils # (Auto) 0.1x10^3/uL (0.0-0.7) 0.2x10^3/uL (0.0-0.7) Basophils # (Auto) 0.1x10^3/uL (0.0-0.2) 0.0x10^3/uL (0.0-0.2) Urine Collection Type Unknown Urine Color Yellow Urine Clarity Clear Urine pH 6.0 Urine Specific [place] 1.015 Urine Protein 100mg/dL (NEG-TRACE) Urine Glucose (UA) Negativemg/dL (NEG) Urine Ketones (Stick) Negativemg/dL (NEG) Urine Blood Negative (NEG) Urine Nitrite Negative (NEG) Urine Bilirubin Negative (NEG) Urine Urobilinogen Dipstick 1.0mg/dL (0.2 mg/dL) Urine Leukocyte Esterase Negative (NEG) Urine RBC 1-2/HPF (0-2) Urine WBC 1-4/HPF (0-4) Urine Bacteria 0/HPF (0-FEW) Urine Hyaline Casts Moderate/HPF Urine Mucus Slight/LPF Sodium Level 139mmol/L (136-145) 140mmol/L (136-145) Potassium Level 4.5mmol/L (3.5-5.1) 4.0mmol/L (3.5-5.1) Chloride Level 100mmol/L (98-107) 103mmol/L (98-107) Carbon Dioxide Level 26mmol/L (21-32) 28mmol/L (21-32) Anion Gap 13 (6-14) 9 (6-14) Blood Urea Nitrogen 13mg/dL (8-26) 13mg/dL (8-26) Creatinine 0.8mg/dL (0.7-1.3) 1.0mg/dL (0.7-1.3) Estimated GFR (Cockcroft-Gault) 100.0 77.3 BUN/Creatinine Ratio 16 (6-20) 13 (6-20) Glucose Level 163mg/dL (70-99) 151mg/dL (70-99) Lactic Acid Level 2.8mmol/L (0.4-2.0) 2.1mmol/L (0.4-2.0) Calcium Level 9.9mg/dL (8.5-10.1) 9.0mg/dL (8.5-10.1) Total Bilirubin 1.2mg/dL (0.2-1.0) 1.6mg/dL (0.2-1.0) Aspartate Amino Transf (AST/SGOT) 77U/L (15-37) 78U/L (15-37) Alanine Aminotransferase (ALT/SGPT) 98U/L (16-63) 97U/L (16-63) Alkaline Phosphatase 80U/L (46-116) 69U/L (46-116) Total Protein 8.0g/dL (6.4-8.2) 6.6g/dL (6.4-8.2) Albumin 4.0g/dL (3.4-5.0) 3.3g/dL (3.4-5.0) Albumin/Globulin Ratio 1.0 (1.0-1.7) 1.0 (1.0-1.7) Influenza Type A Antigen Negative (NEGATIVE) Influenza Type B Antigen Negative (NEGATIVE) Glucose (Fingerstick) 129mg/dL (70-99) Objective Assessment Abdominal abscess vs. seroma vs. hematoma 09/10 CT scan s/p umbilical hernia repair (08/28 repair) Lactic acidosis Diabetes HTN A fib CHF Hyperlipidemia Plan Plan of Care Cont vanc Add zosyn BC x2 sent, await results AM labs Await surgical recommendations likely needs aspiration Thank you # [id number] KAIT ALVARADO MD Sep 11, 2016 08:01
--- NOTE | 2016-09-11 08:16 | RAD ---
Portable chest, 09/11/2016: History: Congestive heart failure The heart is mildly enlarged. The pulmonary vascularity is normal. No pulmonary infiltrates are seen. There is no evidence of pleural fluid. Mild spurring is present in the spine. IMPRESSION: 1. Mild cardiomegaly. 2. No acute abnormality is detected.
[2016-09-11] MEDS: ALPRAZOLAM 0.5 MG TABLET PO PRN ×3 (08:51→21:50)
[2016-09-11] MEDS ORDERED: FUROSEMIDE 20 MG TABLET PO SCH (09:00)
--- NOTE | 2016-09-11 10:38 | CONS ---
DATE OF CONSULTATION: 09/11/2016 PATIENT'S ROOM: 430. REQUESTING PHYSICIAN: Dr. Virgen. REASON FOR CONSULTATION: chest pain. HISTORY OF PRESENT ILLNESS: The patient is a pleasant 56-year-old with a history of obesity, AFib, diabetes who on 08/28/2016 underwent umbilical hernia repair. He was doing fairly well at home for about a week, but then began to have some of periumbilical pain. At that point, we had to take his pain medicines again once a day to control the pain. Three days ago; however, he had acute onset of increasing pain with subjective chills and sweats, also had some nausea. He called his work as this is a workman's comp case and they referred him to [facility]. He saw [facility] physician yesterday and was referred to [facility]. On arrival, he has been afebrile. White blood cell count has been normal at 5.5 with a normal differential; however, he did have an elevation of his lactic acid to 2.8. Additionally, he underwent a CT scan of the abdomen and pelvis, which revealed a 6.3 x 5.5 x 6.6 fluid collection at the surgical site. He was admitted to the hospital and placed on vancomycin. Currently, he states he is about the same. He does have a little sinus congestion, occasional cough. He does have a history of congestive heart failure. So with this he states that every morning he has to awake up and cough to clear his secretions and then improves. Denies any ill contacts. He has no chest pain. No nausea, vomiting, or diarrhea. No dysuria, frequency, or urgency. No falls or traumas. PAST MEDICAL HISTORY: Positive for hypothyroidism, anxiety, hyperlipidemia, hypertension, atrial fibrillation, congestive heart failure, diabetes, and morbid obesity. PAST SURGICAL HISTORY: Positive for the above-mentioned umbilical hernia repair with mesh on the first, previous vasectomy. REVIEW OF SYSTEMS: Otherwise negative except for mentioned above. ALLERGIES: Listed as LATEX. SOCIAL HISTORY: No tobacco. 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 FAMILY HISTORY: Noncontributory. CURRENT MEDICATIONS: Include IV vancomycin. He is on Lipitor, Coreg, Amaryl, insulin, lisinopril. Other meds are available and reviewed in the chart. PHYSICAL EXAMINATION: VITAL SIGNS: He has been afebrile, temperature 97.6, pulse 95, respirations 18, blood pressure 157/93. CONSTITUTIONAL: He is pleasant. He is cooperative. He is obese. HEENT: Pupils are equal and reactive. He has got mild injection of his right eye. Oral cavity, pharynx is clear. NECK: Supple, no JVD. LUNGS: Clear to auscultation bilaterally. HEART: S1, S2. ABDOMEN: Obese, soft, nondistended. There is no guarding. There is no rebound. About his periumbilical area, he does have some erythema, no gross warmth and there is some mild swelling associated with it. EXTREMITIES: Without clubbing, cyanosis, or gross edema. SKIN: Warm to touch without signs of rash. NEUROLOGIC: He is nonfocal up and ambulates around the room. PSYCHIATRIC: Affect is pleasant. LABORATORY VALUES: White count 5.5, hemoglobin 15.6, platelets 115 with neutrophils 68, lymphs are 16. Most recent glucose fingerstick of 138, lactic acid of 2.1, glucose in a blood collection is 151, creatinine of 1.0, AST 78, ALT 97. Urinalysis is clean. Influenza screen is negative. Radiology reviewed in history of present illness. IMPRESSION: 1. Abdominal abscess versus seroma versus hematoma. He stopped CAT scan from the . 2. Status post umbilical hernia repair on the . 3. Lactic acidosis. 4. Diabetes. 5. Hypertension. 6. Atrial fibrillation. 7. Congestive heart failure. 8. Hyperlipidemia. RECOMMENDATIONS: For now, continue the vancomycin. We will add Zosyn to cover intra-abdominal process. Blood cultures x 2 are pending. Await morning labs and await for surgical recommendations, likely will need an aspiration. Thank you for allowing us to participate in the patient's care. If you have any questions, please do not hesitate to contact me. KAIT ALVARADO MD DR: ANGELIQUE/davina JOB#: [id number] / [id number]
[2016-09-11] MEDS: PIPERACILLIN/TAZOBACTAM 3.375 GM in IV NORMAL SALINE 50ML 50 ML IV SCH ×4 (10:40→23:49)
--- NOTE | 2016-09-11 10:42 | ACF ---
Admission Forms Criteria SKIN AND WOUND CARE Clinical Indications for Inpatient Care (Place 'X' for any and all applicable criteria): Ongoing inpatient care may be indicated for pressure, venous, arterial, or neuropathic ulcers, with ANY ONE of the following (2)(3)(8)(9)(21)(25): [X]I. Need for ANY ONE of the following(26) [ ]a) Pressure ulcer closure procedures [ ]b) Skin grafting [ ]c) Wound debridement [ ]d) Dressing change under general anesthesia [ ]e) Arterial revascularization procedures(19) (Also use Aortofemoral or Aortoiliac Bypass or Femoral Popliteal Bypass Criteria as appropriate) [ ]f) Amputation (Also use Foot: Transmetatarsal Amputation or Knee: Amputation Above or Below Knee Criteria as appropriate) [ ]g) Diverting colostomy [X]h) Other significant surgical treatment [ ]II. Infection requiring inpatient care as indicated by ALL of the following( 27) [ ]a) ANY ONE of the following signs of infection: [ ]i) Poorly approximated incision line. [ ]ii) Excessive drainage [ ]iii) Foul odor [ ]iv) Pus [ ]v) Increased redness [ ]vi) Breakdown in tissue after suture removal [ ]vii) Fever [ ]b) ANY ONE of the following findings: [ ]i) Mental status changes [ ]ii) Dehydration [ ]iii) Bacteremia [ ]iv) Perineal infection [ ]v) Hemodynamic instability [ ]vi) High-risk conditions, such as ANY ONE of the following: [ ]1) Poorly controlled diabetes [ ]2) Cirrhosis [ ]3) Neutropenia [ ]4) Asplenia [ ]5) HIV infection [ ]6) Immunosuppression Extended stay beyond goal length of stay for primary condition may be needed until ALL of the following are present(1)(2)(13)(21)(27): [ ]a) Tissue necrosis absent or treatment plan manageable at lower level of care [ ]b) Fistulas, tunneling, or underlying deep tissue infection absent or treated [ ]c) Purulence and tissue breakdown absent or improved [ ]d) Ulcer surgical repair absent or healing without complications [ ]e) Wound infection absent or manageable at lower level of care [ ]f) Comorbidities absent or manageable at lower level of care The original [facility] [employer] content created by [employer] has been revised. The portions of the content which have been revised are identified through the use of italic text or in bold, and [facility] has neither reviewed nor approved the modified material. All other unmodified content is copyright [facility]. Please see references footnoted in the original [facility] edition 2016 Admission Criteria Met?: Yes DAJA SABA Sep 11, 2016 10:42
[2016-09-11 11:00] VITALS: BP 145/101
--- NOTE | 2016-09-11 12:53 | PDOC2 ---
PALMER KIM PATIENT SERVICES COORDINATOR 09/11/16 1253: CARDIAC CONSULT DATE OF CONSULT Date of Consult DATE: 09/11/16 TIME: 12:44 REASON FOR CONSULT Reason for Consult: CHF, needs new construction stonemason REFERRING PHYSICIAN Referring Physician: Dr. Virgen SOURCE Source: Chart review, Patient HISTORY OF PRESENT ILLNESS HISTORY OF PRESENT ILLNESS This is a 56 yo male, who underwent an umbilical hernia repair with Dr. Wooten 08/28/16, who presented with complaints of worsening abdominal pain. Patient reports he was discharged from hernia surgery and was doing fairly well. Developed pain with firmed surrounding umbilicus on Friday. Called employer who referred him to corporate urgent care. Was then referred onto ED. Patient has a history of CHF and chronic AFIB. Underwent echo, MPI, and cardiac at [facility]. Reports clean cath. Was started on maintence Lasix at that time. Feels like his CHF is "coming back". Has recently had some difficulty breathing and increased congestion with clear sputum. Minimal exertion causes SOA. Asking about possibility of disability. Additional history of IZZY. Does not use CPAP- has anxiety and feels like he would not tolerate mask. Discussed role of untreated IZZY in heart disease- is considering trying makes. Routine construction stonemason is Dr. Stallings at [place]. Due to occupation/insurance change, needs to establish care with local construction stonemason. Reports compliance with medications. PAST MEDICAL HISTORY Cardiovascular: AFIB, CHF, HTN, Hyperlipidemia Pulmonary: Other (IZZY) CENTRAL NERVOUS SYSTEM: Other (no pertinent hx) GI: No pertinent hx Heme/Onc: No pertinent hx Hepatobiliary: No pertinent hx Psych: Anxiety Musculoskeletal: Osteoarthritis Rheumatologic: No pertinent hx Infectious disease: No pertinent hx ENT: No pertinent hx Renal/: No pertinent hx Endocrine: Diabetes, Hypothyroidism Dermatology: No pertinent hx PAST SURGICAL HISTORY Past Surgical History: Hernia Repair, Other (vasectomy ) FAMILY HISTORY Family History: Coronary Artery Disease, Heart Disease, Stroke SOCIAL HISTORY Smoke: No ALCOHOL: occassional Drugs: None Lives: Alone CURRENT MEDICATIONS CURRENT MEDICATIONS Current Medications Medications (Trade) Dose Ordered Sig/[place] Route PRN Reason Start Time Stop Time Status Last Admin Dose Admin Sodium Chloride (Iv Sodium Chloride 0.9% 1000ml Bag) 1,000 ml @ 1,000 mls/hr 1X ONCE IV 09/10/16 17:30 09/10/16 18:29 DC 09/10/16 17:38 Vancomycin HCl 1 each 1 each PRN DAILY PRN MC SEE COMMENTS 09/10/16 17:30 09/10/16 19:29 Vancomycin HCl/ Sodium Chloride (Iv Sodium Chloride 0.9% 500ml Bag) 500 ml @ 250 mls/hr 1X ONCE IV 09/10/16 17:30 09/10/16 19:29 DC 09/10/16 17:38 Lorazepam (Ativan) 2 mg 1X ONCE IV 09/10/16 17:45 09/10/16 17:46 DC 09/10/16 17:38 Iohexol 75 ml 75 ml 1X ONCE IV 09/10/16 18:15 09/10/16 18:16 DC 09/10/16 18:23 Vancomycin HCl/ Sodium Chloride (Iv Sodium Chloride 0.9% 500ml Bag) 500 ml @ 250 mls/hr Q12H IV 09/11/16 06:00 09/11/16 05:56 Carvedilol (Coreg) 3.125 mg BIDWMEALS PO 09/11/16 08:00 09/11/16 08:52 Furosemide (Lasix) 10 mg DAILY PO 09/11/16 09:00 09/11/16 08:52 Levothyroxine Sodium (Synthroid) 75 mcg DAILY07 PO 09/11/16 07:00 09/11/16 05:57 Lisinopril (Prinivil) 20 mg QEVNG PO 09/10/16 21:00 09/10/16 22:19 Oxycodone/ Acetaminophen (Percocet 5/325) 1 tab PRN Q4HRS PRN PO MODERATE TO SEVERE PAIN 09/10/16 21:00 09/11/16 02:12 Glimepiride (Amaryl) 1 mg QEVNG PO 09/10/16 21:00 09/10/16 22:17 Potassium Chloride (Klor-Con) 10 meq QEVNG PO 09/10/16 21:00 09/10/16 22:18 Atorvastatin Calcium (Lipitor) 5 mg QHS PO 09/10/16 21:00 09/10/16 22:19 Insulin Aspart (Novolog) 0-9 UNITS TIDWMEALS SQ 09/11/16 08:00 09/11/16 12:23 Alprazolam 0.5 mg 0.5 mg PRN Q6HRS PRN PO ANXIETY / AGITATION 09/10/16 22:15 09/11/16 08:51 Piperacillin Sod/ Tazobactam Sod/ Sodium Chloride (Zosyn/Iv Sodium Chloride 0.9% 50ml) 50 ml @ 100 mls/hr Q6HRS IV 09/11/16 10:00 09/11/16 10:40 ALLERGIES ALLERGIES: Coded Allergies: latex (Verified Allergy, Intermediate, Rash,skin tear off, 08/28/16) ROS Review of System 14 point ROS conducted with pertinent positives noted above in HPI. PHYSICAL EXAM General: Alert, Oriented X3, Cooperative, No acute distress HEENT: Atraumatic, Mucous membr. moist/pink Lungs: Clear to auscultation, Normal air movement Heart: Normal S1, Normal S2, No murmurs, Other (IRR: tele AFIB. ) Abdomen: Other (obese ) Extremities: No cyanosis, No edema, Normal pulses Skin: No significant lesion Neuro: Normal speech, Normal tone, Sensation intact Psych/Mental Status: Mental status NL, Mood NL MUSCULOSKELETAL: Full range of motion without pain VITALS VITALS Vital Signs Date Time Temp Pulse Resp B/P Pulse Ox O2 Delivery O2 Flow Rate FiO2 09/11/16 08:52 95 157/93 09/11/16 07:45 Room Air 09/11/16 07:00 97.6 18 95 97.6 LABS Lab: Laboratory Tests Test 09/10/16 17:30 09/10/16 17:40 09/10/16 20:58 09/11/16 06:50 White Blood Count 7.9x10^3/uL (4.0-11.0) 5.5x10^3/uL (4.0-11.0) Red Blood Count 5.16x10^6/uL (4.30-5.70) 4.73x10^6/uL (4.30-5.70) Hemoglobin 17.0g/dL (13.0-17.5) 15.6g/dL (13.0-17.5) Hematocrit 50.3% (39.0-53.0) 46.6% (39.0-53.0) Mean Corpuscular Volume 98fL (79-100) 99fL (79-100) Mean Corpuscular Hemoglobin 33pg (25-35) 33pg (25-35) Mean Corpuscular Hemoglobin Concent 34g/dL (31-37) 33g/dL (31-37) Red Cell Distribution Width 13.5% (11.5-14.5) 13.2% (11.5-14.5) Platelet Count 164x10^3/uL (140-400) 115x10^3/uL (140-400) Neutrophils (%) (Auto) 66% (31-73) 68% (31-73) Lymphocytes (%) (Auto) 20% (24-48) 16% (24-48) Monocytes (%) (Auto) 12% (0-9) 11% (0-9) Eosinophils (%) (Auto) 2% (0-3) 3% (0-3) Basophils (%) (Auto) 1% (0-3) 1% (0-3) Neutrophils # (Auto) 5.2x10^3uL (1.8-7.7) 3.8x10^3uL (1.8-7.7) Lymphocytes # (Auto) 1.6x10^3/uL (1.0-4.8) 0.9x10^3/uL (1.0-4.8) Monocytes # (Auto) 0.9x10^3/uL (0.0-1.1) 0.6x10^3/uL (0.0-1.1) Eosinophils # (Auto) 0.1x10^3/uL (0.0-0.7) 0.2x10^3/uL (0.0-0.7) Basophils # (Auto) 0.1x10^3/uL (0.0-0.2) 0.0x10^3/uL (0.0-0.2) Urine Collection Type Unknown Urine Color Yellow Urine Clarity Clear Urine pH 6.0 Urine Specific [place] 1.015 Urine Protein 100mg/dL (NEG-TRACE) Urine Glucose (UA) Negativemg/dL (NEG) Urine Ketones (Stick) Negativemg/dL (NEG) Urine Blood Negative (NEG) Urine Nitrite Negative (NEG) Urine Bilirubin Negative (NEG) Urine Urobilinogen Dipstick 1.0mg/dL (0.2 mg/dL) Urine Leukocyte Esterase Negative (NEG) Urine RBC 1-2/HPF (0-2) Urine WBC 1-4/HPF (0-4) Urine Bacteria 0/HPF (0-FEW) Urine Hyaline Casts Moderate/HPF Urine Mucus Slight/LPF Sodium Level 139mmol/L (136-145) 140mmol/L (136-145) Potassium Level 4.5mmol/L (3.5-5.1) 4.0mmol/L (3.5-5.1) Chloride Level 100mmol/L (98-107) 103mmol/L (98-107) Carbon Dioxide Level 26mmol/L (21-32) 28mmol/L (21-32) Anion Gap 13 (6-14) 9 (6-14) Blood Urea Nitrogen 13mg/dL (8-26) 13mg/dL (8-26) Creatinine 0.8mg/dL (0.7-1.3) 1.0mg/dL (0.7-1.3) Estimated GFR (Cockcroft-Gault) 100.0 77.3 BUN/Creatinine Ratio 16 (6-20) 13 (6-20) Glucose Level 163mg/dL (70-99) 151mg/dL (70-99) Lactic Acid Level 2.8mmol/L (0.4-2.0) 2.1mmol/L (0.4-2.0) Calcium Level 9.9mg/dL (8.5-10.1) 9.0mg/dL (8.5-10.1) Total Bilirubin 1.2mg/dL (0.2-1.0) 1.6mg/dL (0.2-1.0) Aspartate Amino Transf (AST/SGOT) 77U/L (15-37) 78U/L (15-37) Alanine Aminotransferase (ALT/SGPT) 98U/L (16-63) 97U/L (16-63) Alkaline Phosphatase 80U/L (46-116) 69U/L (46-116) Total Protein 8.0g/dL (6.4-8.2) 6.6g/dL (6.4-8.2) Albumin 4.0g/dL (3.4-5.0) 3.3g/dL (3.4-5.0) Albumin/Globulin Ratio 1.0 (1.0-1.7) 1.0 (1.0-1.7) Influenza Type A Antigen Negative (NEGATIVE) Influenza Type B Antigen Negative (NEGATIVE) Glucose (Fingerstick) 129mg/dL (70-99) Test 09/11/16 08:29 Glucose (Fingerstick) 138mg/dL (70-99) ASSESSMENT/PLAN ASSESSMENT/PLAN 1. Abdominal pain; postoperative seroma vs hematoma vs abscess per 2. Recent umbilical hernia repair 3. Lactic acidosis 4. Chronic CHF 5. Chronic atrial fibrillation 6. Hypertension 7. Hyperlipidemia 8. Diabetes, II 9. Hypothyroidism 10. Obesity Recommendations Obtain [place] cardiac records Check echo. Will give extra dose of Lasix today and increase to 20mg daily Dietary/lifestyle modification with weight reduction Maintain BP control. Xarelto on hold per surgery for possible aspiration in am- resume when able. Treatment of IZZY. Will set up follow up in 4-[address] Newberry Problems: ALLISON NEWBERRY MD 09/11/16 2316: CARDIAC CONSULT ALLERGIES ALLERGIES: Coded Allergies: latex (Verified Allergy, Intermediate, Rash,skin tear off, 08/28/16) ASSESSMENT/PLAN ASSESSMENT/PLAN Pt. seen and examined. Agree with above KEYSEATER OPERATOR note. 56 y.o male presenting for non-cardiac issues but with progressive dyspnea. normal heart tones on exam. labs reviewed. Awaiting echo, medical therapy for now. Plan for supportive care. Recs as above. Suspect most symptoms due to 45 lb weight gain in 6 months. Will follow along peripherally. Thanks for consult. Problems: PALMER KIM APRN Sep 11, 2016 12:53 ALLISON NEWBERRY MD Sep 11, 2016 23:16
[2016-09-11] MEDS: VANCOMYCIN PER PHARMACY MC PRN (14:00)
[2016-09-11 15:00] VITALS: BP 150/88
[2016-09-11] MEDS ORDERED: FUROSEMIDE 20 MG TABLET PO ONE (16:30)
[2016-09-11] MEDS ORDERED: ENOXAPARIN ** NOTE DOSE ** SYRINGE SQ ONE (17:00)
[2016-09-11] MEDS: POTASSIUM CHLORIDE 10 MEQ TABLET.ER. PO SCH (17:32)
[2016-09-11] MEDS: LISINOPRIL 20 MG TABLET PO SCH (17:33)
[2016-09-11] MEDS: CARVEDILOL 6.25 MG TABLET PO SCH (17:33)
[2016-09-11] MEDS: GLIMEPIRIDE 2 MG TABLET PO SCH (17:33)
--- NOTE | 2016-09-11 18:02 | PDOC2 ---
CONSULT Date of Consult Date of Consult DATE: 09/10/16 TIME: 18:00 Reason for Consult Reason for Consult: umbilical fullness, pain, fluid collection Referring Physician Referring Physician: SANDEEP Identification/Chief Complaint Chief Complaint fever, chills, abdominal pain Source Source: Patient History of Present Illness Reason for Visit: Samuel is a 56 yo obese male who is two weeks post op repair of an umbilical hernia with mesh. He had some fever, chills, and pain in his umbilical area. A scan done on presentation to the ED showed a fluid collection in the operative site. We are asked to see him for surgical follow up. Past Medical History Cardiovascular: AFIB, CHF, HTN, Hyperlipidemia Pulmonary: Other (IZZY) CENTRAL NERVOUS SYSTEM: Other (no pertinent hx) GI: No pertinent hx Heme/Onc: No pertinent hx Hepatobiliary: No pertinent hx Psych: Anxiety Musculoskeletal: Osteoarthritis Rheumatologic: No pertinent hx Infectious disease: No pertinent hx ENT: No pertinent hx Renal/: No pertinent hx Endocrine: Diabetes, Hypothyroidism Dermatology: No pertinent hx Past Surgical History Past Surgical History: Hernia Repair, Other (vasectomy ) Family History Family History: Coronary Artery Disease, Heart Disease, Stroke Social History No ALCOHOL: occassional Drugs: None Lives: Alone Current Problem List Problem List Problems Medical Problems: (1) Fever Status: Acute (2) Incisional abscess Status: Acute Current Medications Current Medications Current Medications Sodium Chloride (Iv Sodium Chloride 0.9% 1000ml Bag) 1,000 ml @ 1,000 mls/hr 1X ONCE IV Last administered on 09/10/16 17:38; Start 09/10/16 at 17:30; Stop 09/10/16 at 18:29; Status DC Vancomycin HCl 1 each 1 each PRN DAILY PRN MC SEE COMMENTS Last administered on 09/11/16 14:00; Start 09/10/16 at 17:30 Vancomycin HCl/ Sodium Chloride (Iv Sodium Chloride 0.9% 500ml Bag) 500 ml @ 250 mls/hr 1X ONCE IV Last administered on 09/10/16 17:38; Start 09/10/16 at 17:30; Stop 09/10/16 at 19:29; Status DC Lorazepam (Ativan) 2 mg 1X ONCE IV Last administered on 09/10/16 17:38; Start 09/10/16 at 17:45; Stop 09/10/16 at 17:46; Status DC Iohexol (Omnipaque 300 Mg/ml) 75 ml 1X ONCE IV Last administered on 09/10/16 18:23; Start 09/10/16 at 18:15; Stop 09/10/16 at 18:16; Status DC Info (Do NOT chart on this entry -- for MONITORING) 1 each PRN DAILY PRN MC SEE COMMENTS; Start 09/10/16 at 18:15; Stop 09/12/16 at 18:14 Ondansetron HCl (Zofran) 4 mg PRN Q8HRS PRN IV NAUSEA/VOMITING; Start 09/10/16 at 19:30; Stop 09/11/16 at 19:29 Fentanyl Citrate 50 mcg 50 mcg PRN Q1HR PRN IV PAIN; Start 09/10/16 at 19:30; Stop 09/11/16 at 19:29 Sodium Chloride (Iv Sodium Chloride 0.9% 1000ml Bag) 1,000 ml @ 150 mls/hr Q6H40M IV ; Start 09/10/16 at 19:19; Stop 09/10/16 at 21:10; Status DC Vancomycin HCl 1 each 1 each PRN DAILY PRN MC SEE COMMENTS; Start 09/10/16 at 19:30; Status UNV Vancomycin HCl/ Sodium Chloride (Iv Sodium Chloride 0.9% 500ml Bag) 500 ml @ 250 mls/hr Q12H IV Last administered on 09/11/16 05:56; Start 09/11/16 at 06: 00 Vancomycin HCl 1 each 1X ONCE MC ; Start 09/12/16 at 05:30; Stop 09/12/16 at 05 :31 Carvedilol (Coreg) 3.125 mg BIDWMEALS PO Last administered on 09/11/16 08:52; Start 09/11/16 at 08:00; Stop 09/11/16 at 15:42; Status DC Furosemide (Lasix) 10 mg DAILY PO Last administered on 09/11/16 08:52; Start 09/11/16 at 09:00; Stop 09/11/16 at 15:54; Status DC Levothyroxine Sodium (Synthroid) 75 mcg DAILY07 PO Last administered on 05:57; Start 09/11/16 at 07:00 Lisinopril (Prinivil) 20 mg QEVNG PO Last administered on 09/11/16 17:33; Start 09/10/16 at 21:00 Metformin HCl (Glucophage) 500 mg BIDWMEALS PO ; Start 09/13/16 at 08:00; Stop 09/13/16 at 08:00; Status DC Oxycodone/ Acetaminophen (Percocet 5/325) 1 tab PRN Q4HRS PRN PO MODERATE TO SEVERE PAIN Last administered on 09/11/16 02:12; Start 09/10/16 at 21:00 Glimepiride (Amaryl) 1 mg QEVNG PO Last administered on 09/11/16 17:33; Start 09/10/16 at 21:00 Potassium Chloride (Klor-Con) 10 meq QEVNG PO Last administered on 09/11/16 17 :32; Start 09/10/16 at 21:00 Atorvastatin Calcium (Lipitor) 5 mg QHS PO Last administered on 09/10/16 22:19 ; Start 09/10/16 at 21:00 Oxycodone/ Acetaminophen (Percocet 5/325) 2 tab PRN Q4HRS PRN PO MODERATE TO SEVERE PAIN; Start 09/10/16 at 21:15 Insulin Aspart (Novolog) 0-9 UNITS TIDWMEALS SQ Last administered on 09/11/16 17:39; Start 09/11/16 at 08:00 Dextrose 12.5 gm PRN Q15MIN PRN IV SEE COMMENTS; Start 09/10/16 at 21:15 Alprazolam 0.5 mg 0.5 mg PRN Q6HRS PRN PO ANXIETY / AGITATION Last administered on 09/11/16 16:01; Start 09/10/16 at 22:15 Piperacillin Sod/ Tazobactam Sod/ Sodium Chloride (Zosyn/Iv Sodium Chloride 0.9 % 50ml) 50 ml @ 100 mls/hr Q6HRS IV Last administered on 09/11/16 17:34; Start 09/11/16 at 10:00 Carvedilol (Coreg) 6.25 mg BIDWMEALS PO Last administered on 09/11/16 17:33; Start 09/11/16 at 17:00 Furosemide (Lasix) 20 mg DAILY PO ; Start 09/12/16 at 09:00 Furosemide (Lasix) 20 mg 1X ONCE PO Last administered on 09/11/16 16:03; Start 09/11/16 at 16:30; Stop 09/11/16 at 16:31; Status DC Enoxaparin Sodium (Lovenox 150mg Syringe) 150 mg 1X ONCE SQ Last administered on 09/11/16 17:34; Start 09/11/16 at 17:00; Stop 09/11/16 at 17:01; Status DC Active Scripts Active Reported Percocet 5-325 Mg Tablet (Oxycodone/Acetaminophen) 1 Each Tablet 1-2 Tab PO Q4- 6HRS PRN Levothyroxine Sodium 75 Mcg Tablet 1 Tab PO DAILY Lisinopril 20 Mg Tablet 1 Tab PO QEVNG Potassium Chloride 10 Meq Capsule.er 10 Meq PO QEVNG Xarelto (Rivaroxaban) 10 Mg Tablet 10 Mg PO BID Carvedilol 3.125 Mg Tablet 3.125 Mg PO BIDWMEALS Glimepiride 1 Mg Tablet 1 Mg PO QEVNG Furosemide 20 Mg Tablet 10 Mg PO DAILY Pravastatin Sodium 10 Mg Tablet 10 Mg PO QEVNG Metformin Hcl 500 Mg Tablet 500 Mg PO BIDWMEALS Allergies Allergies: Coded Allergies: latex (Verified Allergy, Intermediate, Rash,skin tear off, 08/28/16) ROS General: YES: Chills Gastrointestinal: Yes Abdominal Pain Physical Exam General: Alert, Oriented X3, Cooperative, No acute distress Lungs: Normal air movement Heart: Regular rate Abdomen: Soft, Other (morbicly obese, recent infraumbilical incision, soft fullness in the umbilicus) Vitals VITALS Vital Signs Date Time Temp Pulse Resp B/P Pulse Ox O2 Delivery O2 Flow Rate FiO2 09/11/16 17:33 69 150/88 09/11/16 11:00 97.9 20 93 Room Air 97.9 Labs Labs Laboratory Tests Test 09/10/16 17:30 09/10/16 17:40 09/10/16 20:58 09/11/16 06:50 White Blood Count 7.9x10^3/uL (4.0-11.0) 5.5x10^3/uL (4.0-11.0) Red Blood Count 5.16x10^6/uL (4.30-5.70) 4.73x10^6/uL (4.30-5.70) Hemoglobin 17.0g/dL (13.0-17.5) 15.6g/dL (13.0-17.5) Hematocrit 50.3% (39.0-53.0) 46.6% (39.0-53.0) Mean Corpuscular Volume 98fL (79-100) 99fL (79-100) Mean Corpuscular Hemoglobin 33pg (25-35) 33pg (25-35) Mean Corpuscular Hemoglobin Concent 34g/dL (31-37) 33g/dL (31-37) Red Cell Distribution Width 13.5% (11.5-14.5) 13.2% (11.5-14.5) Platelet Count 164x10^3/uL (140-400) 115x10^3/uL (140-400) Neutrophils (%) (Auto) 66% (31-73) 68% (31-73) Lymphocytes (%) (Auto) 20% (24-48) 16% (24-48) Monocytes (%) (Auto) 12% (0-9) 11% (0-9) Eosinophils (%) (Auto) 2% (0-3) 3% (0-3) Basophils (%) (Auto) 1% (0-3) 1% (0-3) Neutrophils # (Auto) 5.2x10^3uL (1.8-7.7) 3.8x10^3uL (1.8-7.7) Lymphocytes # (Auto) 1.6x10^3/uL (1.0-4.8) 0.9x10^3/uL (1.0-4.8) Monocytes # (Auto) 0.9x10^3/uL (0.0-1.1) 0.6x10^3/uL (0.0-1.1) Eosinophils # (Auto) 0.1x10^3/uL (0.0-0.7) 0.2x10^3/uL (0.0-0.7) Basophils # (Auto) 0.1x10^3/uL (0.0-0.2) 0.0x10^3/uL (0.0-0.2) Urine Collection Type Unknown Urine Color Yellow Urine Clarity Clear Urine pH 6.0 Urine Specific [place] 1.015 Urine Protein 100mg/dL (NEG-TRACE) Urine Glucose (UA) Negativemg/dL (NEG) Urine Ketones (Stick) Negativemg/dL (NEG) Urine Blood Negative (NEG) Urine Nitrite Negative (NEG) Urine Bilirubin Negative (NEG) Urine Urobilinogen Dipstick 1.0mg/dL (0.2 mg/dL) Urine Leukocyte Esterase Negative (NEG) Urine RBC 1-2/HPF (0-2) Urine WBC 1-4/HPF (0-4) Urine Bacteria 0/HPF (0-FEW) Urine Hyaline Casts Moderate/HPF Urine Mucus Slight/LPF Sodium Level 139mmol/L (136-145) 140mmol/L (136-145) Potassium Level 4.5mmol/L (3.5-5.1) 4.0mmol/L (3.5-5.1) Chloride Level 100mmol/L (98-107) 103mmol/L (98-107) Carbon Dioxide Level 26mmol/L (21-32) 28mmol/L (21-32) Anion Gap 13 (6-14) 9 (6-14) Blood Urea Nitrogen 13mg/dL (8-26) 13mg/dL (8-26) Creatinine 0.8mg/dL (0.7-1.3) 1.0mg/dL (0.7-1.3) Estimated GFR (Cockcroft-Gault) 100.0 77.3 BUN/Creatinine Ratio 16 (6-20) 13 (6-20) Glucose Level 163mg/dL (70-99) 151mg/dL (70-99) Lactic Acid Level 2.8mmol/L (0.4-2.0) 2.1mmol/L (0.4-2.0) Calcium Level 9.9mg/dL (8.5-10.1) 9.0mg/dL (8.5-10.1) Total Bilirubin 1.2mg/dL (0.2-1.0) 1.6mg/dL (0.2-1.0) Aspartate Amino Transf (AST/SGOT) 77U/L (15-37) 78U/L (15-37) Alanine Aminotransferase (ALT/SGPT) 98U/L (16-63) 97U/L (16-63) Alkaline Phosphatase 80U/L (46-116) 69U/L (46-116) Total Protein 8.0g/dL (6.4-8.2) 6.6g/dL (6.4-8.2) Albumin 4.0g/dL (3.4-5.0) 3.3g/dL (3.4-5.0) Albumin/Globulin Ratio 1.0 (1.0-1.7) 1.0 (1.0-1.7) Influenza Type A Antigen Negative (NEGATIVE) Influenza Type B Antigen Negative (NEGATIVE) Glucose (Fingerstick) 129mg/dL (70-99) BZ-Lsb-J-Type Natriuretic Peptide 1388pg/mL (0-124) Test 09/11/16 08:29 09/11/16 17:21 Glucose (Fingerstick) 138mg/dL (70-99) 167mg/dL (70-99) Laboratory Tests Test 09/10/16 20:58 09/11/16 06:50 09/11/16 08:29 09/11/16 17:21 Glucose (Fingerstick) 129mg/dL (70-99) 138mg/dL (70-99) 167mg/dL (70-99) White Blood Count 5.5x10^3/uL (4.0-11.0) Red Blood Count 4.73x10^6/uL (4.30-5.70) Hemoglobin 15.6g/dL (13.0-17.5) Hematocrit 46.6% (39.0-53.0) Mean Corpuscular Volume 99fL (79-100) Mean Corpuscular Hemoglobin 33pg (25-35) Mean Corpuscular Hemoglobin Concent 33g/dL (31-37) Red Cell Distribution Width 13.2% (11.5-14.5) Platelet Count 115x10^3/uL (140-400) Neutrophils (%) (Auto) 68% (31-73) Lymphocytes (%) (Auto) 16% (24-48) Monocytes (%) (Auto) 11% (0-9) Eosinophils (%) (Auto) 3% (0-3) Basophils (%) (Auto) 1% (0-3) Neutrophils # (Auto) 3.8x10^3uL (1.8-7.7) Lymphocytes # (Auto) 0.9x10^3/uL (1.0-4.8) Monocytes # (Auto) 0.6x10^3/uL (0.0-1.1) Eosinophils # (Auto) 0.2x10^3/uL (0.0-0.7) Basophils # (Auto) 0.0x10^3/uL (0.0-0.2) Sodium Level 140mmol/L (136-145) Potassium Level 4.0mmol/L (3.5-5.1) Chloride Level 103mmol/L (98-107) Carbon Dioxide Level 28mmol/L (21-32) Anion Gap 9 (6-14) Blood Urea Nitrogen 13mg/dL (8-26) Creatinine 1.0mg/dL (0.7-1.3) Estimated GFR (Cockcroft-Gault) 77.3 BUN/Creatinine Ratio 13 (6-20) Glucose Level 151mg/dL (70-99) Lactic Acid Level 2.1mmol/L (0.4-2.0) Calcium Level 9.0mg/dL (8.5-10.1) Total Bilirubin 1.6mg/dL (0.2-1.0) Aspartate Amino Transf (AST/SGOT) 78U/L (15-37) Alanine Aminotransferase (ALT/SGPT) 97U/L (16-63) Alkaline Phosphatase 69U/L (46-116) IY-Sro-N-Type Natriuretic Peptide 1388pg/mL (0-124) Total Protein 6.6g/dL (6.4-8.2) Albumin 3.3g/dL (3.4-5.0) Albumin/Globulin Ratio 1.0 (1.0-1.7) Images Images CT reviewed Assessment/Plan Assessment/Plan fluid collection in operative area fever/chills/sweats morbid obesity offered aspiration for cultures, he prefers to wait will follow Thanks for consult PEPPER TOSCANO MD Sep 11, 2016 18:02
--- NOTE | 2016-09-11 18:03 | PDOC ---
Provider Note Provider Note SURG seen earlier today scheduled for US guided aspiration of fluid collection tomorrow (off anticoagulants) await those results PEPPER TOSCANO MD Sep 11, 2016 18:03
--- NOTE | 2016-09-11 18:15 | PDOC ---
PROGRESS NOTES Chief Complaint Chief Complaint Abd wall abscess ASSESSMENT AND PLAN: 1. Abd wall abscess: post umbilical hernia repair 2 weeks ago. superficial fluid collection, c/w abscess (vs hematoma, seroma). aspiration by [facility] way AM. Abx as per Dr Cramer 2. CHF: chronically worsening, albeit relatively stable here. W/U, incl cardiology F/U in progress 3. Afib/aflutter; rate controlled. 4. OAC: on xarelto at home, currently on hold with planned intervention 5. HTN; borderline control; med adjustmetn as per cardiology 6. DM: fairly well controlled on glipizide only; home metformin currently on hold 7. hypothyroidism: ho repletion 8. Transaminitis: no known hepatits. suspect BERRY. viral serology pending. Vitals Vitals Vital Signs Date Time Temp Pulse Resp B/P Pulse Ox O2 Delivery O2 Flow Rate FiO2 09/11/16 17:33 69 150/88 09/11/16 11:00 97.9 20 93 Room Air 97.9 Physical Exam General: Alert, Oriented X3, Cooperative, No acute distress Heart: Regular rate Lungs: Clear Abdomen: Soft, Other (morbicly obese, recent infraumbilical incision, soft fullness in the umbilicus) Extremities: No cyanosis, No edema, Normal pulses Skin: No significant lesion Labs LABS Laboratory Tests Test 09/10/16 20:58 09/11/16 06:50 09/11/16 08:29 09/11/16 17:21 Glucose (Fingerstick) 129mg/dL (70-99) 138mg/dL (70-99) 167mg/dL (70-99) White Blood Count 5.5x10^3/uL (4.0-11.0) Red Blood Count 4.73x10^6/uL (4.30-5.70) Hemoglobin 15.6g/dL (13.0-17.5) Hematocrit 46.6% (39.0-53.0) Mean Corpuscular Volume 99fL (79-100) Mean Corpuscular Hemoglobin 33pg (25-35) Mean Corpuscular Hemoglobin Concent 33g/dL (31-37) Red Cell Distribution Width 13.2% (11.5-14.5) Platelet Count 115x10^3/uL (140-400) Neutrophils (%) (Auto) 68% (31-73) Lymphocytes (%) (Auto) 16% (24-48) Monocytes (%) (Auto) 11% (0-9) Eosinophils (%) (Auto) 3% (0-3) Basophils (%) (Auto) 1% (0-3) Neutrophils # (Auto) 3.8x10^3uL (1.8-7.7) Lymphocytes # (Auto) 0.9x10^3/uL (1.0-4.8) Monocytes # (Auto) 0.6x10^3/uL (0.0-1.1) Eosinophils # (Auto) 0.2x10^3/uL (0.0-0.7) Basophils # (Auto) 0.0x10^3/uL (0.0-0.2) Sodium Level 140mmol/L (136-145) Potassium Level 4.0mmol/L (3.5-5.1) Chloride Level 103mmol/L (98-107) Carbon Dioxide Level 28mmol/L (21-32) Anion Gap 9 (6-14) Blood Urea Nitrogen 13mg/dL (8-26) Creatinine 1.0mg/dL (0.7-1.3) Estimated GFR (Cockcroft-Gault) 77.3 BUN/Creatinine Ratio 13 (6-20) Glucose Level 151mg/dL (70-99) Lactic Acid Level 2.1mmol/L (0.4-2.0) Calcium Level 9.0mg/dL (8.5-10.1) Total Bilirubin 1.6mg/dL (0.2-1.0) Aspartate Amino Transf (AST/SGOT) 78U/L (15-37) Alanine Aminotransferase (ALT/SGPT) 97U/L (16-63) Alkaline Phosphatase 69U/L (46-116) DE-Kgc-I-Type Natriuretic Peptide 1388pg/mL (0-124) Total Protein 6.6g/dL (6.4-8.2) Albumin 3.3g/dL (3.4-5.0) Albumin/Globulin Ratio 1.0 (1.0-1.7) Review of Systems Review of Systems feels ok. questions about D/C in AM ELENITA BENDER MD Sep 11, 2016 18:15
[2016-09-11 19:05] VITALS: BP 133/96
[2016-09-11] MEDS: ATORVASTATIN CALCIUM 10 MG TABLET. PO SCH (21:50)
[2016-09-11 23:12] VITALS: BP 121/76
[2016-09-12] VITALS (11 sets, daily range): BP systolic 110–144; BP diastolic 60–92
[2016-09-12] MEDS: OXYCODONE/APAP 5/325 TABLET. PO PRN (00:52)
[2016-09-12] MEDS: PIPERACILLIN/TAZOBACTAM 3.375 GM in IV NORMAL SALINE 50ML 50 ML IV SCH ×2 (05:34→11:57)
[2016-09-12] MEDS: LEVOTHYROXINE 75 MCG TABLET PO SCH (06:10)
[2016-09-12] MEDS: VANCOMYCIN 2 GM in IV NORMAL SALINE 500ML BAG 500 ML IV SCH (06:10)
[2016-09-12 06:19] LABS: BASO % 1 % (0-3); EOS % 4 % (0-3); HEMATOCRIT 44.7 % (39.0-53.0); HEMOGLOBIN 15.1 g/dL (13.0-17.5); LYMPH # 1.6 x10^3/uL (1.0-4.8); LYMPH % 29 % (24-48); MEAN CORPUSCULAR HEMOGLOBIN 33 pg (25-35); MEAN CORPUSCULAR HGB CONC 34 g/dL (31-37); MEAN CORPUSCULAR VOLUME 97 fL (79-100); MONO % 12 % (0-9); NEUT % 54 % (31-73); PLATELET COUNT 118 x10^3/uL (140-400); RED BLOOD COUNT 4.61 x10^6/uL (4.30-5.70); RED CELL DISTRIBUTION WIDTH 13.4 % (11.5-14.5); WHITE BLOOD COUNT 5.5 x10^3/uL (4.0-11.0)
[2016-09-12 06:43] LABS: CHOLESTEROL/HDL RATIO 6.1
[2016-09-12 06:44] LABS: ALBUMIN 3.2 g/dL (3.4-5.0); DIRECT BILIRUBIN 0.5 mg/dL (0.0-0.2); TOTAL BILIRUBIN 1.7 mg/dL (0.2-1.0); TOTAL PROTEIN 6.4 g/dL (6.4-8.2)
[2016-09-12] MEDS: VANCOMYCIN PER PHARMACY MC PRN (06:51)
[2016-09-12] MEDS: INSULIN ASPART 300 UNITS/3 ML INSULN.PEN SQ SCH ×2 (07:47→12:04)
[2016-09-12] MEDS: CARVEDILOL 6.25 MG TABLET PO SCH (07:49)
--- NOTE | 2016-09-12 08:46 | PDOC ---
Infectious Disease Note Subjective Subjective About the same Still some abd pain ROS ROS GEN: Denies fevers, chills, sweats HEENT: Denies blurred vision, sore throat CV: Denies chest pain RESP: Denies shortness of air, cough GI: Denies n/v/d NEURO: Denies confusion, dizziness MSK: Denies weakness, joint pain/swelling Vital Sign Vital Signs Vital Signs Date Time Temp Pulse Resp B/P Pulse Ox O2 Delivery O2 Flow Rate FiO2 09/12/16 07:49 86 110/72 09/12/16 07:00 97.7 16 97 Room Air 97.7 Physical Exam PHYSICAL EXAM GENERAL: NAD, Alert, coop HEENT: PERRL, OC/OP- clear NECK: Supple, no JVD, no LN LUNGS: Clear HEART: S1S2, no gallop, no murmur ABD: Soft, NT, no organomegaly, no rebound, obese. Still some abd erythema and swelling EXT: No edema, no cyanosis [employer]ORD[employer]ATOR: Alert, oriented x 3, no focal neurologic deficit SKIN: No rash, chronic erythema IV: ok Labs Lab Laboratory Tests Test 09/11/16 10:48 09/11/16 17:21 09/11/16 21:20 09/12/16 05:27 Glucose (Fingerstick) 228mg/dL (70-99) 167mg/dL (70-99) 137mg/dL (70-99) White Blood Count 5.5x10^3/uL (4.0-11.0) Red Blood Count 4.61x10^6/uL (4.30-5.70) Hemoglobin 15.1g/dL (13.0-17.5) Hematocrit 44.7% (39.0-53.0) Mean Corpuscular Volume 97fL (79-100) Mean Corpuscular Hemoglobin 33pg (25-35) Mean Corpuscular Hemoglobin Concent 34g/dL (31-37) Red Cell Distribution Width 13.4% (11.5-14.5) Platelet Count 118x10^3/uL (140-400) Neutrophils (%) (Auto) 54% (31-73) Lymphocytes (%) (Auto) 29% (24-48) Monocytes (%) (Auto) 12% (0-9) Eosinophils (%) (Auto) 4% (0-3) Basophils (%) (Auto) 1% (0-3) Neutrophils # (Auto) 3.0x10^3uL (1.8-7.7) Lymphocytes # (Auto) 1.6x10^3/uL (1.0-4.8) Monocytes # (Auto) 0.7x10^3/uL (0.0-1.1) Eosinophils # (Auto) 0.2x10^3/uL (0.0-0.7) Basophils # (Auto) 0.0x10^3/uL (0.0-0.2) Total Bilirubin 1.7mg/dL (0.2-1.0) Direct Bilirubin 0.5mg/dL (0.0-0.2) Aspartate Amino Transf (AST/SGOT) 159U/L (15-37) Alanine Aminotransferase (ALT/SGPT) 171U/L (16-63) Alkaline Phosphatase 69U/L (46-116) Total Protein 6.4g/dL (6.4-8.2) Albumin 3.2g/dL (3.4-5.0) Triglycerides Level 281mg/dL (0-150) Cholesterol Level 177mg/dL (0-200) LDL Cholesterol, Calculated 92mg/dL (0-100) VLDL Cholesterol, Calculated 56mg/dL (0-40) HDL Cholesterol 29mg/dL (40-60) Cholesterol/HDL Ratio 6.1 Vancomycin Level Trough 13.3mcg/mL (10.0-20.0) Vancomycin Last Dose Date 09/11/16 Vancomycin Last Dose Time 1800 Test 09/12/16 07:25 Glucose (Fingerstick) 138mg/dL (70-99) Objective Assessment Abdominal abscess vs. seroma vs. hematoma 09/10 CT scan s/p umbilical hernia repair (08/28 repair) Lactic acidosis Diabetes HTN A fib CHF Hyperlipidemia Plan Plan of Care Cont vanc/zosyn BC x2 sent, await results Await aspiration KAIT ALVARADO MD Sep 12, 2016 08:46
--- NOTE | 2016-09-12 08:50 | PDOC ---
[facility] CONSULTING PSYCHIATRIST 09/12/16 0850: SURGICAL PROGRESS NOTE Subjective some increased pain/pressure to umbilicus Vital Signs Vital Signs Date Time Temp Pulse Resp B/P Pulse Ox O2 Delivery O2 Flow Rate FiO2 09/12/16 07:49 86 110/72 09/12/16 07:00 97.7 16 97 Room Air 97.7 I&O Intake and Output 09/12/16 07:00 Intake Total 420 ml Balance 420 ml Intake Oral 420 ml # Voids 6 General: Alert, Oriented X3, Cooperative, No acute distress Abdomen: Soft, Other (umbilicus with erythema, fluctuance) Labs Laboratory Tests Test 09/10/16 17:30 09/10/16 17:40 09/10/16 20:58 09/11/16 06:50 White Blood Count 7.9x10^3/uL (4.0-11.0) 5.5x10^3/uL (4.0-11.0) Red Blood Count 5.16x10^6/uL (4.30-5.70) 4.73x10^6/uL (4.30-5.70) Hemoglobin 17.0g/dL (13.0-17.5) 15.6g/dL (13.0-17.5) Hematocrit 50.3% (39.0-53.0) 46.6% (39.0-53.0) Mean Corpuscular Volume 98fL (79-100) 99fL (79-100) Mean Corpuscular Hemoglobin 33pg (25-35) 33pg (25-35) Mean Corpuscular Hemoglobin Concent 34g/dL (31-37) 33g/dL (31-37) Red Cell Distribution Width 13.5% (11.5-14.5) 13.2% (11.5-14.5) Platelet Count 164x10^3/uL (140-400) 115x10^3/uL (140-400) Neutrophils (%) (Auto) 66% (31-73) 68% (31-73) Lymphocytes (%) (Auto) 20% (24-48) 16% (24-48) Monocytes (%) (Auto) 12% (0-9) 11% (0-9) Eosinophils (%) (Auto) 2% (0-3) 3% (0-3) Basophils (%) (Auto) 1% (0-3) 1% (0-3) Neutrophils # (Auto) 5.2x10^3uL (1.8-7.7) 3.8x10^3uL (1.8-7.7) Lymphocytes # (Auto) 1.6x10^3/uL (1.0-4.8) 0.9x10^3/uL (1.0-4.8) Monocytes # (Auto) 0.9x10^3/uL (0.0-1.1) 0.6x10^3/uL (0.0-1.1) Eosinophils # (Auto) 0.1x10^3/uL (0.0-0.7) 0.2x10^3/uL (0.0-0.7) Basophils # (Auto) 0.1x10^3/uL (0.0-0.2) 0.0x10^3/uL (0.0-0.2) Urine Collection Type Unknown Urine Color Yellow Urine Clarity Clear Urine pH 6.0 Urine Specific [place] 1.015 Urine Protein 100mg/dL (NEG-TRACE) Urine Glucose (UA) Negativemg/dL (NEG) Urine Ketones (Stick) Negativemg/dL (NEG) Urine Blood Negative (NEG) Urine Nitrite Negative (NEG) Urine Bilirubin Negative (NEG) Urine Urobilinogen Dipstick 1.0mg/dL (0.2 mg/dL) Urine Leukocyte Esterase Negative (NEG) Urine RBC 1-2/HPF (0-2) Urine WBC 1-4/HPF (0-4) Urine Bacteria 0/HPF (0-FEW) Urine Hyaline Casts Moderate/HPF Urine Mucus Slight/LPF Sodium Level 139mmol/L (136-145) 140mmol/L (136-145) Potassium Level 4.5mmol/L (3.5-5.1) 4.0mmol/L (3.5-5.1) Chloride Level 100mmol/L (98-107) 103mmol/L (98-107) Carbon Dioxide Level 26mmol/L (21-32) 28mmol/L (21-32) Anion Gap 13 (6-14) 9 (6-14) Blood Urea Nitrogen 13mg/dL (8-26) 13mg/dL (8-26) Creatinine 0.8mg/dL (0.7-1.3) 1.0mg/dL (0.7-1.3) Estimated GFR (Cockcroft-Gault) 100.0 77.3 BUN/Creatinine Ratio 16 (6-20) 13 (6-20) Glucose Level 163mg/dL (70-99) 151mg/dL (70-99) Lactic Acid Level 2.8mmol/L (0.4-2.0) 2.1mmol/L (0.4-2.0) Calcium Level 9.9mg/dL (8.5-10.1) 9.0mg/dL (8.5-10.1) Total Bilirubin 1.2mg/dL (0.2-1.0) 1.6mg/dL (0.2-1.0) Aspartate Amino Transf (AST/SGOT) 77U/L (15-37) 78U/L (15-37) Alanine Aminotransferase (ALT/SGPT) 98U/L (16-63) 97U/L (16-63) Alkaline Phosphatase 80U/L (46-116) 69U/L (46-116) Total Protein 8.0g/dL (6.4-8.2) 6.6g/dL (6.4-8.2) Albumin 4.0g/dL (3.4-5.0) 3.3g/dL (3.4-5.0) Albumin/Globulin Ratio 1.0 (1.0-1.7) 1.0 (1.0-1.7) Influenza Type A Antigen Negative (NEGATIVE) Influenza Type B Antigen Negative (NEGATIVE) Glucose (Fingerstick) 129mg/dL (70-99) EI-Xkp-Y-Type Natriuretic Peptide 1388pg/mL (0-124) Test 09/11/16 08:29 09/11/16 10:48 09/11/16 17:21 09/11/16 21:20 Glucose (Fingerstick) 138mg/dL (70-99) 228mg/dL (70-99) 167mg/dL (70-99) 137mg/dL (70-99) Test 09/12/16 05:27 3/16/17 07:25 White Blood Count 5.5x10^3/uL (4.0-11.0) Red Blood Count 4.61x10^6/uL (4.30-5.70) Hemoglobin 15.1g/dL (13.0-17.5) Hematocrit 44.7% (39.0-53.0) Mean Corpuscular Volume 97fL (79-100) Mean Corpuscular Hemoglobin 33pg (25-35) Mean Corpuscular Hemoglobin Concent 34g/dL (31-37) Red Cell Distribution Width 13.4% (11.5-14.5) Platelet Count 118x10^3/uL (140-400) Neutrophils (%) (Auto) 54% (31-73) Lymphocytes (%) (Auto) 29% (24-48) Monocytes (%) (Auto) 12% (0-9) Eosinophils (%) (Auto) 4% (0-3) Basophils (%) (Auto) 1% (0-3) Neutrophils # (Auto) 3.0x10^3uL (1.8-7.7) Lymphocytes # (Auto) 1.6x10^3/uL (1.0-4.8) Monocytes # (Auto) 0.7x10^3/uL (0.0-1.1) Eosinophils # (Auto) 0.2x10^3/uL (0.0-0.7) Basophils # (Auto) 0.0x10^3/uL (0.0-0.2) Total Bilirubin 1.7mg/dL (0.2-1.0) Direct Bilirubin 0.5mg/dL (0.0-0.2) Aspartate Amino Transf (AST/SGOT) 159U/L (15-37) Alanine Aminotransferase (ALT/SGPT) 171U/L (16-63) Alkaline Phosphatase 69U/L (46-116) Total Protein 6.4g/dL (6.4-8.2) Albumin 3.2g/dL (3.4-5.0) Triglycerides Level 281mg/dL (0-150) Cholesterol Level 177mg/dL (0-200) LDL Cholesterol, Calculated 92mg/dL (0-100) VLDL Cholesterol, Calculated 56mg/dL (0-40) HDL Cholesterol 29mg/dL (40-60) Cholesterol/HDL Ratio 6.1 Vancomycin Level Trough 13.3mcg/mL (10.0-20.0) Vancomycin Last Dose Date 09/11/16 Vancomycin Last Dose Time 1800 Glucose (Fingerstick) 138mg/dL (70-99) Laboratory Tests Test 09/11/16 10:48 09/11/16 17:21 09/11/16 21:20 09/12/16 05:27 Glucose (Fingerstick) 228mg/dL (70-99) 167mg/dL (70-99) 137mg/dL (70-99) White Blood Count 5.5x10^3/uL (4.0-11.0) Red Blood Count 4.61x10^6/uL (4.30-5.70) Hemoglobin 15.1g/dL (13.0-17.5) Hematocrit 44.7% (39.0-53.0) Mean Corpuscular Volume 97fL (79-100) Mean Corpuscular Hemoglobin 33pg (25-35) Mean Corpuscular Hemoglobin Concent 34g/dL (31-37) Red Cell Distribution Width 13.4% (11.5-14.5) Platelet Count 118x10^3/uL (140-400) Neutrophils (%) (Auto) 54% (31-73) Lymphocytes (%) (Auto) 29% (24-48) Monocytes (%) (Auto) 12% (0-9) Eosinophils (%) (Auto) 4% (0-3) Basophils (%) (Auto) 1% (0-3) Neutrophils # (Auto) 3.0x10^3uL (1.8-7.7) Lymphocytes # (Auto) 1.6x10^3/uL (1.0-4.8) Monocytes # (Auto) 0.7x10^3/uL (0.0-1.1) Eosinophils # (Auto) 0.2x10^3/uL (0.0-0.7) Basophils # (Auto) 0.0x10^3/uL (0.0-0.2) Total Bilirubin 1.7mg/dL (0.2-1.0) Direct Bilirubin 0.5mg/dL (0.0-0.2) Aspartate Amino Transf (AST/SGOT) 159U/L (15-37) Alanine Aminotransferase (ALT/SGPT) 171U/L (16-63) Alkaline Phosphatase 69U/L (46-116) Total Protein 6.4g/dL (6.4-8.2) Albumin 3.2g/dL (3.4-5.0) Triglycerides Level 281mg/dL (0-150) Cholesterol Level 177mg/dL (0-200) LDL Cholesterol, Calculated 92mg/dL (0-100) VLDL Cholesterol, Calculated 56mg/dL (0-40) HDL Cholesterol 29mg/dL (40-60) Cholesterol/HDL Ratio 6.1 Vancomycin Level Trough 13.3mcg/mL (10.0-20.0) Vancomycin Last Dose Date 09/11/16 Vancomycin Last Dose Time 1800 Test 09/12/16 07:25 Glucose (Fingerstick) 138mg/dL (70-99) Problem List Problems Medical Problems: (1) Fever Status: Acute (2) Incisional abscess Status: Acute Assessment/Plan plans for aspiration of umbilical fluid today Problems: PEPPER TOSCANO MD 09/12/16 1450: SURGICAL PROGRESS NOTE Assessment/Plan seen after aspiration old blood no new surg recs home today f/u with Dr Wooten as scheduled Problems: EMI DUMAS APRN Sep 12, 2016 08:50 PEPPER TOSCANO MD Sep 12, 2016 14:50
[2016-09-12] MEDS ORDERED: LIDOCAINE 1% / SOD BICARB 8.4% 20 ML VIAL. IJ ONE ×2 (08:59→09:45)
[2016-09-12] MEDS ORDERED: FUROSEMIDE 20 MG TABLET PO SCH (09:00)
[2016-09-12] MEDS ORDERED: FLUMAZENIL 0.5 MG/5 ML VIAL. IV ONE (09:01)
[2016-09-12] MEDS ORDERED: NALOXONE 0.4 MG/ML VIAL. ONE (09:01)
[2016-09-12] MEDS ORDERED: FENTANYL PF 250 MCG/5 ML VIAL. ONE (09:01)
[2016-09-12] MEDS ORDERED: MIDAZOLAM HCL/PF 5 MG/5 ML VIAL ONE (09:01)
[2016-09-12] MEDS ORDERED: MIDAZOLAM HCL/PF 5 MG/5 ML VIAL IV ONE (09:45)
[2016-09-12] MEDS ORDERED: FENTANYL PF 250 MCG/5 ML VIAL. IV ONE (09:45)
--- NOTE | 2016-09-12 09:58 | PDOC ---
MODERATE SEDATION ASSESSMENT RISKS/ALTERNATIVES Risks/Alternatives Risks and alternatives of this type of sedation and procedure discussed with: RISK/ALTERNATIVES: Patient H & P ON CHART H & P H & P on chart and reviewed for co-morbid conditions and appropriate labs. H&P ON CHART: Yes STATUS PREG STATUS ASSESSED: N/A MEDS/ALLERGIES REVIEWED Meds/Allergies Reviewed Medications and Allergies including time and route of recently administered narcotics and sedatives. MEDS/ALLERGIES REVIEWED: Yes ASA RATING ASA RATING: II AIRWAY ASSESSMENT Airway Assessment Airway patency, oral function limitations, presence of caps, crowns, dentures, partials, and ability to extend neck assessed. AIRWAY ASSESSMENT: Yes MALLAMPATI SCORE MALLAMPATI SCORE: III PRE-SEDATION ASSESSMENT PRE-SEDATION ASSESSMENT: Yes MESERET GUTIERREZ MD Sep 12, 2016 09:58
--- NOTE | 2016-09-12 10:01 | PDOC ---
Exam Sausage Cutter Sausage Cutter Keenan Cuff Runner Cuff Runner B Cates Pre-Procedure Diagnosis Pre-Procedure Diagnosis Post op gracia-umbilical subQ complex fluid collection---seroma vs hematoma vs abscess. Post-Procedure Diagnosis Post-Procedure Diagnosis Pot op hematoma Procedure Performed Procedure Performed CT guided aspiration of subQ periumbilical hematoma Type of Anesthesia Type of Anesthesia Local + Mod sedation Estimated Blood Loss EBL: Trace Specimens Specimans 80 cc old blood----sample to micro for C&S Condition of Patient Condition of Patient Stable. No apparent complication. Disposition Disposition From IR/CT return to [facility] for recovery. F/u with HIMS and general surgery. Full report to follow. MESERET GUTIERREZ MD Sep 12, 2016 10:01
--- NOTE | 2016-09-12 12:33 | PDOC ---
PROGRESS NOTES Chief Complaint Chief Complaint Abdominal wall abscess (vs hematoma, seroma); s/p umbilical hernia repair 2 wk ago; s/p aspiration by IR this AM - CHF - Afib/aflutter; rate controlled. - HTN; borderline control - DM; fairly well controlled - hypothyroidism - Transaminitis; no known hepatitis, suspect BERRY History of Present Illness History of Present Illness Patient with no acute complaints overnight. Was ambulating fine this AM. tolerated the aspiration of the fluid by IR. States that it was mostly blood, which he estimates to be about 80cc of fluid removed. Feels ready to return home. Is agreeable to await subspecialist clearance. Vitals Vitals Vital Signs Date Time Temp Pulse Resp B/P Pulse Ox O2 Delivery O2 Flow Rate FiO2 09/12/16 10:30 80 127/71 93 Room Air 09/12/16 10:15 97.8 18 97.8 Physical Exam General: Alert, Oriented X3, Cooperative, No acute distress Heart: Regular rate Lungs: Clear Abdomen: Soft, Other (umbilicus with erythema, fluctuance) Extremities: No cyanosis, No edema, Normal pulses Skin: No significant lesion Labs LABS Laboratory Tests Test 09/11/16 17:21 09/11/16 21:20 09/12/16 05:27 09/12/16 07:25 Glucose (Fingerstick) 167mg/dL (70-99) 137mg/dL (70-99) 138mg/dL (70-99) White Blood Count 5.5x10^3/uL (4.0-11.0) Red Blood Count 4.61x10^6/uL (4.30-5.70) Hemoglobin 15.1g/dL (13.0-17.5) Hematocrit 44.7% (39.0-53.0) Mean Corpuscular Volume 97fL (79-100) Mean Corpuscular Hemoglobin 33pg (25-35) Mean Corpuscular Hemoglobin Concent 34g/dL (31-37) Red Cell Distribution Width 13.4% (11.5-14.5) Platelet Count 118x10^3/uL (140-400) Neutrophils (%) (Auto) 54% (31-73) Lymphocytes (%) (Auto) 29% (24-48) Monocytes (%) (Auto) 12% (0-9) Eosinophils (%) (Auto) 4% (0-3) Basophils (%) (Auto) 1% (0-3) Neutrophils # (Auto) 3.0x10^3uL (1.8-7.7) Lymphocytes # (Auto) 1.6x10^3/uL (1.0-4.8) Monocytes # (Auto) 0.7x10^3/uL (0.0-1.1) Eosinophils # (Auto) 0.2x10^3/uL (0.0-0.7) Basophils # (Auto) 0.0x10^3/uL (0.0-0.2) Total Bilirubin 1.7mg/dL (0.2-1.0) Direct Bilirubin 0.5mg/dL (0.0-0.2) Aspartate Amino Transf (AST/SGOT) 159U/L (15-37) Alanine Aminotransferase (ALT/SGPT) 171U/L (16-63) Alkaline Phosphatase 69U/L (46-116) Total Protein 6.4g/dL (6.4-8.2) Albumin 3.2g/dL (3.4-5.0) Triglycerides Level 281mg/dL (0-150) Cholesterol Level 177mg/dL (0-200) LDL Cholesterol, Calculated 92mg/dL (0-100) VLDL Cholesterol, Calculated 56mg/dL (0-40) HDL Cholesterol 29mg/dL (40-60) Cholesterol/HDL Ratio 6.1 Vancomycin Level Trough 13.3mcg/mL (10.0-20.0) Vancomycin Last Dose Date 09/11/16 Vancomycin Last Dose Time 1800 Test 09/12/16 11:16 Glucose (Fingerstick) 233mg/dL (70-99) Review of Systems Review of Systems - denies fever, chills - denies abdominal pain Assessment and Plan Assessmemt and Plan ASSESSMENT: - Abdominal wall abscess (vs hematoma, seroma); s/p umbilical hernia repair 2 wk ago; s/p aspiration by IR this AM - CHF - Afib/aflutter; rate controlled. - HTN; borderline control - DM; fairly well controlled - hypothyroidism - Transaminitis; no known hepatitis, suspect BERRY PLAN: - discharge when cleared by ID; appreciate their input - aspiration of fluid performed by IR this AM - cont antibiotics - cont wound care - repeat daily labs - cont DM management and monitoring - appreciate all subspecialist input on the case Problems: Comment Review of Relevant I have reviewed the following items kendra (where applicable) has been applied. Labs Laboratory Tests Test 09/10/16 17:30 09/10/16 17:40 09/10/16 20:58 09/11/16 06:50 White Blood Count 7.9x10^3/uL (4.0-11.0) 5.5x10^3/uL (4.0-11.0) Red Blood Count 5.16x10^6/uL (4.30-5.70) 4.73x10^6/uL (4.30-5.70) Hemoglobin 17.0g/dL (13.0-17.5) 15.6g/dL (13.0-17.5) Hematocrit 50.3% (39.0-53.0) 46.6% (39.0-53.0) Mean Corpuscular Volume 98fL (79-100) 99fL (79-100) Mean Corpuscular Hemoglobin 33pg (25-35) 33pg (25-35) Mean Corpuscular Hemoglobin Concent 34g/dL (31-37) 33g/dL (31-37) Red Cell Distribution Width 13.5% (11.5-14.5) 13.2% (11.5-14.5) Platelet Count 164x10^3/uL (140-400) 115x10^3/uL (140-400) Neutrophils (%) (Auto) 66% (31-73) 68% (31-73) Lymphocytes (%) (Auto) 20% (24-48) 16% (24-48) Monocytes (%) (Auto) 12% (0-9) 11% (0-9) Eosinophils (%) (Auto) 2% (0-3) 3% (0-3) Basophils (%) (Auto) 1% (0-3) 1% (0-3) Neutrophils # (Auto) 5.2x10^3uL (1.8-7.7) 3.8x10^3uL (1.8-7.7) Lymphocytes # (Auto) 1.6x10^3/uL (1.0-4.8) 0.9x10^3/uL (1.0-4.8) Monocytes # (Auto) 0.9x10^3/uL (0.0-1.1) 0.6x10^3/uL (0.0-1.1) Eosinophils # (Auto) 0.1x10^3/uL (0.0-0.7) 0.2x10^3/uL (0.0-0.7) Basophils # (Auto) 0.1x10^3/uL (0.0-0.2) 0.0x10^3/uL (0.0-0.2) Urine Collection Type Unknown Urine Color Yellow Urine Clarity Clear Urine pH 6.0 Urine Specific [place] 1.015 Urine Protein 100mg/dL (NEG-TRACE) Urine Glucose (UA) Negativemg/dL (NEG) Urine Ketones (Stick) Negativemg/dL (NEG) Urine Blood Negative (NEG) Urine Nitrite Negative (NEG) Urine Bilirubin Negative (NEG) Urine Urobilinogen Dipstick 1.0mg/dL (0.2 mg/dL) Urine Leukocyte Esterase Negative (NEG) Urine RBC 1-2/HPF (0-2) Urine WBC 1-4/HPF (0-4) Urine Bacteria 0/HPF (0-FEW) Urine Hyaline Casts Moderate/HPF Urine Mucus Slight/LPF Sodium Level 139mmol/L (136-145) 140mmol/L (136-145) Potassium Level 4.5mmol/L (3.5-5.1) 4.0mmol/L (3.5-5.1) Chloride Level 100mmol/L (98-107) 103mmol/L (98-107) Carbon Dioxide Level 26mmol/L (21-32) 28mmol/L (21-32) Anion Gap 13 (6-14) 9 (6-14) Blood Urea Nitrogen 13mg/dL (8-26) 13mg/dL (8-26) Creatinine 0.8mg/dL (0.7-1.3) 1.0mg/dL (0.7-1.3) Estimated GFR (Cockcroft-Gault) 100.0 77.3 BUN/Creatinine Ratio 16 (6-20) 13 (6-20) Glucose Level 163mg/dL (70-99) 151mg/dL (70-99) Lactic Acid Level 2.8mmol/L (0.4-2.0) 2.1mmol/L (0.4-2.0) Calcium Level 9.9mg/dL (8.5-10.1) 9.0mg/dL (8.5-10.1) Total Bilirubin 1.2mg/dL (0.2-1.0) 1.6mg/dL (0.2-1.0) Aspartate Amino Transf (AST/SGOT) 77U/L (15-37) 78U/L (15-37) Alanine Aminotransferase (ALT/SGPT) 98U/L (16-63) 97U/L (16-63) Alkaline Phosphatase 80U/L (46-116) 69U/L (46-116) Total Protein 8.0g/dL (6.4-8.2) 6.6g/dL (6.4-8.2) Albumin 4.0g/dL (3.4-5.0) 3.3g/dL (3.4-5.0) Albumin/Globulin Ratio 1.0 (1.0-1.7) 1.0 (1.0-1.7) Influenza Type A Antigen Negative (NEGATIVE) Influenza Type B Antigen Negative (NEGATIVE) Glucose (Fingerstick) 129mg/dL (70-99) SV-Eng-U-Type Natriuretic Peptide 1388pg/mL (0-124) Test 09/11/16 08:29 09/11/16 10:48 09/11/16 17:21 09/11/16 21:20 Glucose (Fingerstick) 138mg/dL (70-99) 228mg/dL (70-99) 167mg/dL (70-99) 137mg/dL (70-99) Test 09/12/16 05:27 09/12/16 07:25 09/12/16 11:16 White Blood Count 5.5x10^3/uL (4.0-11.0) Red Blood Count 4.61x10^6/uL (4.30-5.70) Hemoglobin 15.1g/dL (13.0-17.5) Hematocrit 44.7% (39.0-53.0) Mean Corpuscular Volume 97fL (79-100) Mean Corpuscular Hemoglobin 33pg (25-35) Mean Corpuscular Hemoglobin Concent 34g/dL (31-37) Red Cell Distribution Width 13.4% (11.5-14.5) Platelet Count 118x10^3/uL (140-400) Neutrophils (%) (Auto) 54% (31-73) Lymphocytes (%) (Auto) 29% (24-48) Monocytes (%) (Auto) 12% (0-9) Eosinophils (%) (Auto) 4% (0-3) Basophils (%) (Auto) 1% (0-3) Neutrophils # (Auto) 3.0x10^3uL (1.8-7.7) Lymphocytes # (Auto) 1.6x10^3/uL (1.0-4.8) Monocytes # (Auto) 0.7x10^3/uL (0.0-1.1) Eosinophils # (Auto) 0.2x10^3/uL (0.0-0.7) Basophils # (Auto) 0.0x10^3/uL (0.0-0.2) Total Bilirubin 1.7mg/dL (0.2-1.0) Direct Bilirubin 0.5mg/dL (0.0-0.2) Aspartate Amino Transf (AST/SGOT) 159U/L (15-37) Alanine Aminotransferase (ALT/SGPT) 171U/L (16-63) Alkaline Phosphatase 69U/L (46-116) Total Protein 6.4g/dL (6.4-8.2) Albumin 3.2g/dL (3.4-5.0) Triglycerides Level 281mg/dL (0-150) Cholesterol Level 177mg/dL (0-200) LDL Cholesterol, Calculated 92mg/dL (0-100) VLDL Cholesterol, Calculated 56mg/dL (0-40) HDL Cholesterol 29mg/dL (40-60) Cholesterol/HDL Ratio 6.1 Vancomycin Level Trough 13.3mcg/mL (10.0-20.0) Vancomycin Last Dose Date 09/11/16 Vancomycin Last Dose Time 1800 Glucose (Fingerstick) 138mg/dL (70-99) 233mg/dL (70-99) Laboratory Tests Test 09/11/16 17:21 09/11/16 21:20 3/16/17 05:27 09/12/16 07:25 Glucose (Fingerstick) 167mg/dL (70-99) 137mg/dL (70-99) 138mg/dL (70-99) White Blood Count 5.5x10^3/uL (4.0-11.0) Red Blood Count 4.61x10^6/uL (4.30-5.70) Hemoglobin 15.1g/dL (13.0-17.5) Hematocrit 44.7% (39.0-53.0) Mean Corpuscular Volume 97fL (79-100) Mean Corpuscular Hemoglobin 33pg (25-35) Mean Corpuscular Hemoglobin Concent 34g/dL (31-37) Red Cell Distribution Width 13.4% (11.5-14.5) Platelet Count 118x10^3/uL (140-400) Neutrophils (%) (Auto) 54% (31-73) Lymphocytes (%) (Auto) 29% (24-48) Monocytes (%) (Auto) 12% (0-9) Eosinophils (%) (Auto) 4% (0-3) Basophils (%) (Auto) 1% (0-3) Neutrophils # (Auto) 3.0x10^3uL (1.8-7.7) Lymphocytes # (Auto) 1.6x10^3/uL (1.0-4.8) Monocytes # (Auto) 0.7x10^3/uL (0.0-1.1) Eosinophils # (Auto) 0.2x10^3/uL (0.0-0.7) Basophils # (Auto) 0.0x10^3/uL (0.0-0.2) Total Bilirubin 1.7mg/dL (0.2-1.0) Direct Bilirubin 0.5mg/dL (0.0-0.2) Aspartate Amino Transf (AST/SGOT) 159U/L (15-37) Alanine Aminotransferase (ALT/SGPT) 171U/L (16-63) Alkaline Phosphatase 69U/L (46-116) Total Protein 6.4g/dL (6.4-8.2) Albumin 3.2g/dL (3.4-5.0) Triglycerides Level 281mg/dL (0-150) Cholesterol Level 177mg/dL (0-200) LDL Cholesterol, Calculated 92mg/dL (0-100) VLDL Cholesterol, Calculated 56mg/dL (0-40) HDL Cholesterol 29mg/dL (40-60) Cholesterol/HDL Ratio 6.1 Vancomycin Level Trough 13.3mcg/mL (10.0-20.0) Vancomycin Last Dose Date 09/11/16 Vancomycin Last Dose Time 1800 Test 09/12/16 11:16 Glucose (Fingerstick) 233mg/dL (70-99) Microbiology 09/10/16 Blood Culture - Preliminary, Resulted NO GROWTH AFTER 1 DAY Medications Current Medications Sodium Chloride (Iv Sodium Chloride 0.9% 1000ml Bag) 1,000 ml @ 1,000 mls/hr 1X ONCE IV Last administered on 09/10/16 17:38; Start 09/10/16 at 17:30; Stop 09/10/16 at 18:29; Status DC Vancomycin HCl 1 each 1 each PRN DAILY PRN MC SEE COMMENTS Last administered on 09/12/16 06:51; Start 09/10/16 at 17:30 Vancomycin HCl/ Sodium Chloride (Iv Sodium Chloride 0.9% 500ml Bag) 500 ml @ 250 mls/hr 1X ONCE IV Last administered on 09/10/16 17:38; Start 09/10/16 at 17:30; Stop 09/10/16 at 19:29; Status DC Lorazepam (Ativan) 2 mg 1X ONCE IV Last administered on 09/10/16 17:38; Start 09/10/16 at 17:45; Stop 09/10/16 at 17:46; Status DC Iohexol (Omnipaque 300 Mg/ml) 75 ml 1X ONCE IV Last administered on 09/10/16 18:23; Start 09/10/16 at 18:15; Stop 09/10/16 at 18:16; Status DC Info (Do NOT chart on this entry -- for MONITORING) 1 each PRN DAILY PRN MC SEE COMMENTS; Start 09/10/16 at 18:15; Stop 09/12/16 at 18:14 Ondansetron HCl (Zofran) 4 mg PRN Q8HRS PRN IV NAUSEA/VOMITING; Start 09/10/16 at 19:30; Stop 09/11/16 at 19:29; Status DC Fentanyl Citrate 50 mcg 50 mcg PRN Q1HR PRN IV PAIN; Start 09/10/16 at 19:30; Stop 09/11/16 at 19:29; Status DC Sodium Chloride (Iv Sodium Chloride 0.9% 1000ml Bag) 1,000 ml @ 150 mls/hr Q6H40M IV ; Start 09/10/16 at 19:19; Stop 09/10/16 at 21:10; Status DC Vancomycin HCl 1 each 1 each PRN DAILY PRN MC SEE COMMENTS; Start 09/10/16 at 19:30; Status UNV Vancomycin HCl/ Sodium Chloride (Iv Sodium Chloride 0.9% 500ml Bag) 500 ml @ 250 mls/hr Q12H IV Last administered on 09/12/16 06:10; Start 09/11/16 at 06: 00 Vancomycin HCl 1 each 1X ONCE MC Last administered on 09/12/16 05:30; Start 09/12/16 at 05:30; Stop 09/12/16 at 05:31; Status DC Carvedilol (Coreg) 3.125 mg BIDWMEALS PO Last administered on 09/11/16 08:52; Start 09/11/16 at 08:00; Stop 09/11/16 at 15:42; Status DC Furosemide (Lasix) 10 mg DAILY PO Last administered on 09/11/16 08:52; Start 09/11/16 at 09:00; Stop 09/11/16 at 15:54; Status DC Levothyroxine Sodium (Synthroid) 75 mcg DAILY07 PO Last administered on 06:10; Start 09/11/16 at 07:00 Lisinopril (Prinivil) 20 mg QEVNG PO Last administered on 09/11/16 17:33; Start 09/10/16 at 21:00 Metformin HCl (Glucophage) 500 mg BIDWMEALS PO ; Start 09/13/16 at 08:00; Stop 09/13/16 at 08:00; Status DC Oxycodone/ Acetaminophen (Percocet 5/325) 1 tab PRN Q4HRS PRN PO MODERATE TO SEVERE PAIN Last administered on 09/12/16 00:52; Start 09/10/16 at 21:00 Glimepiride (Amaryl) 1 mg QEVNG PO Last administered on 09/11/16 17:33; Start 09/10/16 at 21:00 Potassium Chloride (Klor-Con) 10 meq QEVNG PO Last administered on 09/11/16 17 :32; Start 09/10/16 at 21:00 Atorvastatin Calcium (Lipitor) 5 mg QHS PO Last administered on 09/11/16 21:50 ; Start 09/10/16 at 21:00 Oxycodone/ Acetaminophen (Percocet 5/325) 2 tab PRN Q4HRS PRN PO MODERATE TO SEVERE PAIN; Start 09/10/16 at 21:15 Insulin Aspart (Novolog) 0-9 UNITS TIDWMEALS SQ Last administered on 09/12/16 12:04; Start 09/11/16 at 08:00 Dextrose 12.5 gm PRN Q15MIN PRN IV SEE COMMENTS; Start 09/10/16 at 21:15 Alprazolam 0.5 mg 0.5 mg PRN Q6HRS PRN PO ANXIETY / AGITATION Last administered on 09/11/16 21:50; Start 09/10/16 at 22:15 Piperacillin Sod/ Tazobactam Sod/ Sodium Chloride (Zosyn/Iv Sodium Chloride 0.9 % 50ml) 50 ml @ 100 mls/hr Q6HRS IV Last administered on 09/12/16 11:57; Start 09/11/16 at 10:00 Carvedilol (Coreg) 6.25 mg BIDWMEALS PO Last administered on 09/12/16 07:49; Start 09/11/16 at 17:00 Furosemide (Lasix) 20 mg DAILY PO Last administered on 09/12/16 07:48; Start 09/12/16 at 09:00 Furosemide (Lasix) 20 mg 1X ONCE PO Last administered on 09/11/16 16:03; Start 09/11/16 at 16:30; Stop 09/11/16 at 16:31; Status DC Enoxaparin Sodium (Lovenox 150mg Syringe) 150 mg 1X ONCE SQ Last administered on 09/11/16 17:34; Start 09/11/16 at 17:00; Stop 09/11/16 at 17:01; Status DC Lidocaine/Sodium Bicarbonate (Buffered Lidocaine 1%) 20 ml STK-MED ONCE IJ ; Start 09/12/16 at 08:59; Stop 09/12/16 at 09:00; Status DC Naloxone HCl (Narcan) 0.4 mg STK-MED ONCE .ROUTE ; Start 09/12/16 at 09:01; Stop 09/12/16 at 09:02; Status DC Flumazenil (Romazicon) 0.5 mg STK-MED ONCE IV ; Start 09/12/16 at 09:01; Stop at 09:02; Status DC Midazolam HCl (Versed) 5 mg STK-MED ONCE .ROUTE ; Start 09/12/16 at 09:01; Stop 09/12/16 at 09:02; Status DC Fentanyl Citrate (Fentanyl 5ml Vial) 250 mcg STK-MED ONCE .ROUTE ; Start at 09:01; Stop 09/12/16 at 09:02; Status DC Lidocaine/Sodium Bicarbonate (Buffered Lidocaine 1%) 10 ml 1X ONCE IJ Last administered on 09/12/16 09:48; Start 09/12/16 at 09:45; Stop 09/12/16 at 09:46 ; Status DC Midazolam HCl (Versed) 1 mg 1X ONCE IV Last administered on 09/12/16 09:49; Start 09/12/16 at 09:45; Stop 09/12/16 at 09:46; Status DC Fentanyl Citrate (Fentanyl 5ml Vial) 50 mcg 1X ONCE IV Last administered on 09:49; Start 09/12/16 at 09:45; Stop 09/12/16 at 09:46; Status DC Active Scripts Active Reported Percocet 5-325 Mg Tablet (Oxycodone/Acetaminophen) 1 Each Tablet 1-2 Tab PO Q4- 6HRS PRN Levothyroxine Sodium 75 Mcg Tablet 1 Tab PO DAILY Lisinopril 20 Mg Tablet 1 Tab PO QEVNG Potassium Chloride 10 Meq Capsule.er 10 Meq PO QEVNG Xarelto (Rivaroxaban) 10 Mg Tablet 10 Mg PO BID Carvedilol 3.125 Mg Tablet 3.125 Mg PO BIDWMEALS Glimepiride 1 Mg Tablet 1 Mg PO QEVNG Furosemide 20 Mg Tablet 10 Mg PO DAILY Pravastatin Sodium 10 Mg Tablet 10 Mg PO QEVNG Metformin Hcl 500 Mg Tablet 500 Mg PO BIDWMEALS Vitals/I & O Vital Sign - Last 24 Hours 09/11/16 09/11/16 09/11/16 3/15/17 15:00 17:33 17:33 19:05 Temp 97.4 97.8 97.4 97.8 Pulse 69 69 69 78 Resp 18 18 B/P 150/88 150/88 150/88 133/96 Pulse Ox 96 95 O2 Delivery Room Air Room Air 09/11/16 09/11/16 09/12/16 09/12/16 19:50 23:12 00:52 02:00 Temp 97.9 97.9 Pulse 87 Resp 20 B/P 121/76 Pulse Ox 97 O2 Delivery Room Air Room Air Room Air Room Air 09/12/16 09/12/16 09/12/16 09/12/16 03:05 07:00 07:49 09:17 Temp 98.3 97.7 98.3 97.7 Pulse 86 77 86 94 Resp 20 16 12 B/P 110/72 115/69 110/72 Pulse Ox 96 97 94 O2 Delivery Room Air Room Air Room Air 09/12/16 09/12/16 09/12/16 09/12/16 09:22 09:27 09:32 09:37 Pulse 94 91 81 84 Resp 14 16 16 14 Pulse Ox 94 93 94 94 09/12/16 09/12/16 09/12/16 09/12/16 09:44 09:49 10:00 10:15 Temp 97.8 97.8 Pulse 90 89 90 Resp 14 14 18 18 B/P 129/60 139/67 Pulse Ox 95 94 95 93 O2 Delivery Room Air Room Air Room Air Room Air 09/12/16 10:30 Pulse 80 B/P 127/71 Pulse Ox 93 O2 Delivery Room Air Intake and Output 09/11/16 09/11/16 09/12/16 15:00 23:00 07:00 Intake Total 120 ml 300 ml Balance 120 ml 300 ml CASTLE,NIAL K III DO Sep 12, 2016 12:33
--- NOTE | 2016-09-12 14:05 | PDOC ---
PROGRESS NOTES Subjective Subjective denies chest discomfort, dyspnea or palpitations. wants to go home. Objective Objective Vital Signs Date Time Temp Pulse Resp B/P Pulse Ox O2 Delivery O2 Flow Rate FiO2 09/12/16 10:30 80 127/71 93 Room Air 09/12/16 10:15 97.8 18 97.8 Intake and Output 09/12/16 07:00 Intake Total 420 ml Balance 420 ml Intake Oral 420 ml # Voids 6 Physical Exam Abdomen: Normal bowel sounds, Soft Heart: Other (irr, no gallops, clicks or rubs) Extremities: Normal pulses General: Alert, Oriented X3, Cooperative, No acute distress Lungs: Clear to auscultation, Normal air movement Neuro: Normal speech, Strength at 5/5 X4 ext Psych/Mental Status: Mental status NL, Mood NL Assessment Assessment Problems Medical Problems: (1) Fever Status: Acute (2) Incisional abscess Status: Acute Dyspnea - improved. echo pending. likely multifactorial. Ischemic workup at [facility] reportedly normal . Continue supportive care and outpatient follow up. postoperative seroma vs hematoma vs abscess per s/p drainage per IR. MGMT per PCP/Sx Chronic atrial fibrillation - controlled. anticoag when ok with IR/Sx. Hypertension - controlled Hyperlipidemia - continue statin Comment Review of Relevant I have reviewed the following items kendra (where applicable) has been applied. Labs Laboratory Tests Test 09/10/16 17:30 09/10/16 17:40 09/10/16 20:58 09/11/16 06:50 White Blood Count 7.9x10^3/uL (4.0-11.0) 5.5x10^3/uL (4.0-11.0) Red Blood Count 5.16x10^6/uL (4.30-5.70) 4.73x10^6/uL (4.30-5.70) Hemoglobin 17.0g/dL (13.0-17.5) 15.6g/dL (13.0-17.5) Hematocrit 50.3% (39.0-53.0) 46.6% (39.0-53.0) Mean Corpuscular Volume 98fL (79-100) 99fL (79-100) Mean Corpuscular Hemoglobin 33pg (25-35) 33pg (25-35) Mean Corpuscular Hemoglobin Concent 34g/dL (31-37) 33g/dL (31-37) Red Cell Distribution Width 13.5% (11.5-14.5) 13.2% (11.5-14.5) Platelet Count 164x10^3/uL (140-400) 115x10^3/uL (140-400) Neutrophils (%) (Auto) 66% (31-73) 68% (31-73) Lymphocytes (%) (Auto) 20% (24-48) 16% (24-48) Monocytes (%) (Auto) 12% (0-9) 11% (0-9) Eosinophils (%) (Auto) 2% (0-3) 3% (0-3) Basophils (%) (Auto) 1% (0-3) 1% (0-3) Neutrophils # (Auto) 5.2x10^3uL (1.8-7.7) 3.8x10^3uL (1.8-7.7) Lymphocytes # (Auto) 1.6x10^3/uL (1.0-4.8) 0.9x10^3/uL (1.0-4.8) Monocytes # (Auto) 0.9x10^3/uL (0.0-1.1) 0.6x10^3/uL (0.0-1.1) Eosinophils # (Auto) 0.1x10^3/uL (0.0-0.7) 0.2x10^3/uL (0.0-0.7) Basophils # (Auto) 0.1x10^3/uL (0.0-0.2) 0.0x10^3/uL (0.0-0.2) Urine Collection Type Unknown Urine Color Yellow Urine Clarity Clear Urine pH 6.0 Urine Specific [place] 1.015 Urine Protein 100mg/dL (NEG-TRACE) Urine Glucose (UA) Negativemg/dL (NEG) Urine Ketones (Stick) Negativemg/dL (NEG) Urine Blood Negative (NEG) Urine Nitrite Negative (NEG) Urine Bilirubin Negative (NEG) Urine Urobilinogen Dipstick 1.0mg/dL (0.2 mg/dL) Urine Leukocyte Esterase Negative (NEG) Urine RBC 1-2/HPF (0-2) Urine WBC 1-4/HPF (0-4) Urine Bacteria 0/HPF (0-FEW) Urine Hyaline Casts Moderate/HPF Urine Mucus Slight/LPF Sodium Level 139mmol/L (136-145) 140mmol/L (136-145) Potassium Level 4.5mmol/L (3.5-5.1) 4.0mmol/L (3.5-5.1) Chloride Level 100mmol/L (98-107) 103mmol/L (98-107) Carbon Dioxide Level 26mmol/L (21-32) 28mmol/L (21-32) Anion Gap 13 (6-14) 9 (6-14) Blood Urea Nitrogen 13mg/dL (8-26) 13mg/dL (8-26) Creatinine 0.8mg/dL (0.7-1.3) 1.0mg/dL (0.7-1.3) Estimated GFR (Cockcroft-Gault) 100.0 77.3 BUN/Creatinine Ratio 16 (6-20) 13 (6-20) Glucose Level 163mg/dL (70-99) 151mg/dL (70-99) Lactic Acid Level 2.8mmol/L (0.4-2.0) 2.1mmol/L (0.4-2.0) Calcium Level 9.9mg/dL (8.5-10.1) 9.0mg/dL (8.5-10.1) Total Bilirubin 1.2mg/dL (0.2-1.0) 1.6mg/dL (0.2-1.0) Aspartate Amino Transf (AST/SGOT) 77U/L (15-37) 78U/L (15-37) Alanine Aminotransferase (ALT/SGPT) 98U/L (16-63) 97U/L (16-63) Alkaline Phosphatase 80U/L (46-116) 69U/L (46-116) Total Protein 8.0g/dL (6.4-8.2) 6.6g/dL (6.4-8.2) Albumin 4.0g/dL (3.4-5.0) 3.3g/dL (3.4-5.0) Albumin/Globulin Ratio 1.0 (1.0-1.7) 1.0 (1.0-1.7) Influenza Type A Antigen Negative (NEGATIVE) Influenza Type B Antigen Negative (NEGATIVE) Glucose (Fingerstick) 129mg/dL (70-99) GS-Sik-H-Type Natriuretic Peptide 1388pg/mL (0-124) Test 09/11/16 08:29 09/11/16 10:48 09/11/16 17:21 09/11/16 21:20 Glucose (Fingerstick) 138mg/dL (70-99) 228mg/dL (70-99) 167mg/dL (70-99) 137mg/dL (70-99) Test 09/12/16 05:27 09/12/16 07:25 09/12/16 11:16 White Blood Count 5.5x10^3/uL (4.0-11.0) Red Blood Count 4.61x10^6/uL (4.30-5.70) Hemoglobin 15.1g/dL (13.0-17.5) Hematocrit 44.7% (39.0-53.0) Mean Corpuscular Volume 97fL (79-100) Mean Corpuscular Hemoglobin 33pg (25-35) Mean Corpuscular Hemoglobin Concent 34g/dL (31-37) Red Cell Distribution Width 13.4% (11.5-14.5) Platelet Count 118x10^3/uL (140-400) Neutrophils (%) (Auto) 54% (31-73) Lymphocytes (%) (Auto) 29% (24-48) Monocytes (%) (Auto) 12% (0-9) Eosinophils (%) (Auto) 4% (0-3) Basophils (%) (Auto) 1% (0-3) Neutrophils # (Auto) 3.0x10^3uL (1.8-7.7) Lymphocytes # (Auto) 1.6x10^3/uL (1.0-4.8) Monocytes # (Auto) 0.7x10^3/uL (0.0-1.1) Eosinophils # (Auto) 0.2x10^3/uL (0.0-0.7) Basophils # (Auto) 0.0x10^3/uL (0.0-0.2) Total Bilirubin 1.7mg/dL (0.2-1.0) Direct Bilirubin 0.5mg/dL (0.0-0.2) Aspartate Amino Transf (AST/SGOT) 159U/L (15-37) Alanine Aminotransferase (ALT/SGPT) 171U/L (16-63) Alkaline Phosphatase 69U/L (46-116) Total Protein 6.4g/dL (6.4-8.2) Albumin 3.2g/dL (3.4-5.0) Triglycerides Level 281mg/dL (0-150) Cholesterol Level 177mg/dL (0-200) LDL Cholesterol, Calculated 92mg/dL (0-100) VLDL Cholesterol, Calculated 56mg/dL (0-40) HDL Cholesterol 29mg/dL (40-60) Cholesterol/HDL Ratio 6.1 Vancomycin Level Trough 13.3mcg/mL (10.0-20.0) Vancomycin Last Dose Date 09/11/16 Vancomycin Last Dose Time 1800 Glucose (Fingerstick) 138mg/dL (70-99) 233mg/dL (70-99) Laboratory Tests Test 09/11/16 17:21 09/11/16 21:20 09/12/16 05:27 09/12/16 07:25 Glucose (Fingerstick) 167mg/dL (70-99) 137mg/dL (70-99) 138mg/dL (70-99) White Blood Count 5.5x10^3/uL (4.0-11.0) Red Blood Count 4.61x10^6/uL (4.30-5.70) Hemoglobin 15.1g/dL (13.0-17.5) Hematocrit 44.7% (39.0-53.0) Mean Corpuscular Volume 97fL (79-100) Mean Corpuscular Hemoglobin 33pg (25-35) Mean Corpuscular Hemoglobin Concent 34g/dL (31-37) Red Cell Distribution Width 13.4% (11.5-14.5) Platelet Count 118x10^3/uL (140-400) Neutrophils (%) (Auto) 54% (31-73) Lymphocytes (%) (Auto) 29% (24-48) Monocytes (%) (Auto) 12% (0-9) Eosinophils (%) (Auto) 4% (0-3) Basophils (%) (Auto) 1% (0-3) Neutrophils # (Auto) 3.0x10^3uL (1.8-7.7) Lymphocytes # (Auto) 1.6x10^3/uL (1.0-4.8) Monocytes # (Auto) 0.7x10^3/uL (0.0-1.1) Eosinophils # (Auto) 0.2x10^3/uL (0.0-0.7) Basophils # (Auto) 0.0x10^3/uL (0.0-0.2) Total Bilirubin 1.7mg/dL (0.2-1.0) Direct Bilirubin 0.5mg/dL (0.0-0.2) Aspartate Amino Transf (AST/SGOT) 159U/L (15-37) Alanine Aminotransferase (ALT/SGPT) 171U/L (16-63) Alkaline Phosphatase 69U/L (46-116) Total Protein 6.4g/dL (6.4-8.2) Albumin 3.2g/dL (3.4-5.0) Triglycerides Level 281mg/dL (0-150) Cholesterol Level 177mg/dL (0-200) LDL Cholesterol, Calculated 92mg/dL (0-100) VLDL Cholesterol, Calculated 56mg/dL (0-40) HDL Cholesterol 29mg/dL (40-60) Cholesterol/HDL Ratio 6.1 Vancomycin Level Trough 13.3mcg/mL (10.0-20.0) Vancomycin Last Dose Date 09/11/16 Vancomycin Last Dose Time 1800 Test 09/12/16 11:16 Glucose (Fingerstick) 233mg/dL (70-99) Microbiology 09/10/16 Blood Culture - Preliminary, Resulted NO GROWTH AFTER 1 DAY Medications Current Medications Sodium Chloride (Iv Sodium Chloride 0.9% 1000ml Bag) 1,000 ml @ 1,000 mls/hr 1X ONCE IV Last administered on 09/10/16 17:38; Start 09/10/16 at 17:30; Stop 09/10/16 at 18:29; Status DC Vancomycin HCl 1 each 1 each PRN DAILY PRN MC SEE COMMENTS Last administered on 09/12/16 06:51; Start 09/10/16 at 17:30 Vancomycin HCl/ Sodium Chloride (Iv Sodium Chloride 0.9% 500ml Bag) 500 ml @ 250 mls/hr 1X ONCE IV Last administered on 09/10/16 17:38; Start 09/10/16 at 17:30; Stop 09/10/16 at 19:29; Status DC Lorazepam (Ativan) 2 mg 1X ONCE IV Last administered on 09/10/16 17:38; Start 09/10/16 at 17:45; Stop 09/10/16 at 17:46; Status DC Iohexol (Omnipaque 300 Mg/ml) 75 ml 1X ONCE IV Last administered on 09/10/16 18:23; Start 09/10/16 at 18:15; Stop 09/10/16 at 18:16; Status DC Info (Do NOT chart on this entry -- for MONITORING) 1 each PRN DAILY PRN MC SEE COMMENTS; Start 09/10/16 at 18:15; Stop 09/12/16 at 18:14 Ondansetron HCl (Zofran) 4 mg PRN Q8HRS PRN IV NAUSEA/VOMITING; Start 09/10/16 at 19:30; Stop 09/11/16 at 19:29; Status DC Fentanyl Citrate 50 mcg 50 mcg PRN Q1HR PRN IV PAIN; Start 09/10/16 at 19:30; Stop 09/11/16 at 19:29; Status DC Sodium Chloride (Iv Sodium Chloride 0.9% 1000ml Bag) 1,000 ml @ 150 mls/hr Q6H40M IV ; Start 09/10/16 at 19:19; Stop 09/10/16 at 21:10; Status DC Vancomycin HCl 1 each 1 each PRN DAILY PRN MC SEE COMMENTS; Start 09/10/16 at 19:30; Status UNV Vancomycin HCl/ Sodium Chloride (Iv Sodium Chloride 0.9% 500ml Bag) 500 ml @ 250 mls/hr Q12H IV Last administered on 09/12/16 06:10; Start 09/11/16 at 06: 00 Vancomycin HCl 1 each 1X ONCE MC Last administered on 09/12/16 05:30; Start 09/12/16 at 05:30; Stop 09/12/16 at 05:31; Status DC Carvedilol (Coreg) 3.125 mg BIDWMEALS PO Last administered on 09/11/16 08:52; Start 09/11/16 at 08:00; Stop 09/11/16 at 15:42; Status DC Furosemide (Lasix) 10 mg DAILY PO Last administered on 09/11/16 08:52; Start 09/11/16 at 09:00; Stop 09/11/16 at 15:54; Status DC Levothyroxine Sodium (Synthroid) 75 mcg DAILY07 PO Last administered on 06:10; Start 09/11/16 at 07:00 Lisinopril (Prinivil) 20 mg QEVNG PO Last administered on 09/11/16 17:33; Start 09/10/16 at 21:00 Metformin HCl (Glucophage) 500 mg BIDWMEALS PO ; Start 09/13/16 at 08:00; Stop 09/13/16 at 08:00; Status DC Oxycodone/ Acetaminophen (Percocet 5/325) 1 tab PRN Q4HRS PRN PO MODERATE TO SEVERE PAIN Last administered on 09/12/16 00:52; Start 09/10/16 at 21:00 Glimepiride (Amaryl) 1 mg QEVNG PO Last administered on 09/11/16 17:33; Start 09/10/16 at 21:00 Potassium Chloride (Klor-Con) 10 meq QEVNG PO Last administered on 09/11/16 17 :32; Start 09/10/16 at 21:00 Atorvastatin Calcium (Lipitor) 5 mg QHS PO Last administered on 09/11/16 21:50 ; Start 09/10/16 at 21:00 Oxycodone/ Acetaminophen (Percocet 5/325) 2 tab PRN Q4HRS PRN PO MODERATE TO SEVERE PAIN; Start 09/10/16 at 21:15 Insulin Aspart (Novolog) 0-9 UNITS TIDWMEALS SQ Last administered on 09/12/16 12:04; Start 09/11/16 at 08:00 Dextrose 12.5 gm PRN Q15MIN PRN IV SEE COMMENTS; Start 09/10/16 at 21:15 Alprazolam 0.5 mg 0.5 mg PRN Q6HRS PRN PO ANXIETY / AGITATION Last administered on 09/11/16 21:50; Start 09/10/16 at 22:15 Piperacillin Sod/ Tazobactam Sod/ Sodium Chloride (Zosyn/Iv Sodium Chloride 0.9 % 50ml) 50 ml @ 100 mls/hr Q6HRS IV Last administered on 09/12/16 11:57; Start 09/11/16 at 10:00 Carvedilol (Coreg) 6.25 mg BIDWMEALS PO Last administered on 09/12/16 07:49; Start 09/11/16 at 17:00 Furosemide (Lasix) 20 mg DAILY PO Last administered on 09/12/16 07:48; Start 09/12/16 at 09:00 Furosemide (Lasix) 20 mg 1X ONCE PO Last administered on 09/11/16 16:03; Start 09/11/16 at 16:30; Stop 09/11/16 at 16:31; Status DC Enoxaparin Sodium (Lovenox 150mg Syringe) 150 mg 1X ONCE SQ Last administered on 09/11/16 17:34; Start 09/11/16 at 17:00; Stop 09/11/16 at 17:01; Status DC Lidocaine/Sodium Bicarbonate (Buffered Lidocaine 1%) 20 ml STK-MED ONCE IJ ; Start 09/12/16 at 08:59; Stop 09/12/16 at 09:00; Status DC Naloxone HCl (Narcan) 0.4 mg STK-MED ONCE .ROUTE ; Start 09/12/16 at 09:01; Stop 09/12/16 at 09:02; Status DC Flumazenil (Romazicon) 0.5 mg STK-MED ONCE IV ; Start 09/12/16 at 09:01; Stop at 09:02; Status DC Midazolam HCl (Versed) 5 mg STK-MED ONCE .ROUTE ; Start 09/12/16 at 09:01; Stop 09/12/16 at 09:02; Status DC Fentanyl Citrate (Fentanyl 5ml Vial) 250 mcg STK-MED ONCE .ROUTE ; Start at 09:01; Stop 09/12/16 at 09:02; Status DC Lidocaine/Sodium Bicarbonate (Buffered Lidocaine 1%) 10 ml 1X ONCE IJ Last administered on 09/12/16 09:48; Start 09/12/16 at 09:45; Stop 09/12/16 at 09:46 ; Status DC Midazolam HCl (Versed) 1 mg 1X ONCE IV Last administered on 09/12/16 09:49; Start 09/12/16 at 09:45; Stop 09/12/16 at 09:46; Status DC Fentanyl Citrate (Fentanyl 5ml Vial) 50 mcg 1X ONCE IV Last administered on 09:49; Start 09/12/16 at 09:45; Stop 09/12/16 at 09:46; Status DC Active Scripts Active Reported Percocet 5-325 Mg Tablet (Oxycodone/Acetaminophen) 1 Each Tablet 1-2 Tab PO Q4- 6HRS PRN Levothyroxine Sodium 75 Mcg Tablet 1 Tab PO DAILY Lisinopril 20 Mg Tablet 1 Tab PO QEVNG Potassium Chloride 10 Meq Capsule.er 10 Meq PO QEVNG Xarelto (Rivaroxaban) 10 Mg Tablet 10 Mg PO BID Carvedilol 3.125 Mg Tablet 3.125 Mg PO BIDWMEALS Glimepiride 1 Mg Tablet 1 Mg PO QEVNG Furosemide 20 Mg Tablet 10 Mg PO DAILY Pravastatin Sodium 10 Mg Tablet 10 Mg PO QEVNG Metformin Hcl 500 Mg Tablet 500 Mg PO BIDWMEALS Vitals/I & O Vital Sign - Last 24 Hours 09/11/16 09/11/16 09/11/16 09/11/16 15:00 17:33 17:33 19:05 Temp 97.4 97.8 97.4 97.8 Pulse 69 69 69 78 Resp 18 18 B/P 150/88 150/88 150/88 133/96 Pulse Ox 96 95 O2 Delivery Room Air Room Air 09/11/16 09/11/16 09/12/16 09/12/16 19:50 23:12 00:52 02:00 Temp 97.9 97.9 Pulse 87 Resp 20 B/P 121/76 Pulse Ox 97 O2 Delivery Room Air Room Air Room Air Room Air 09/12/16 09/12/16 09/12/16 09/12/16 03:05 07:00 07:49 09:17 Temp 98.3 97.7 98.3 97.7 Pulse 86 77 86 94 Resp 20 16 12 B/P 110/72 115/69 110/72 Pulse Ox 96 97 94 O2 Delivery Room Air Room Air Room Air 09/12/16 09/12/16 09/12/16 09/12/16 09:22 09:27 09:32 09:37 Pulse 94 91 81 84 Resp 14 16 16 14 Pulse Ox 94 93 94 94 09/12/16 09/12/16 09/12/16 09/12/16 09:44 09:49 10:00 10:15 Temp 97.8 97.8 Pulse 90 89 90 Resp 18 18 B/P 129/60 139/67 Pulse Ox 95 94 95 93 O2 Delivery Room Air Room Air Room Air Room Air 09/12/16 10:30 Pulse 80 B/P 127/71 Pulse Ox 93 O2 Delivery Room Air Intake and Output 09/11/16 09/11/16 09/12/16 15:00 23:00 07:00 Intake Total 120 ml 300 ml Balance 120 ml 300 ml SARAHY WAITE APRN Sep 12, 2016 14:05
--- NOTE | 2016-09-12 15:25 | CARD ---
APPROVED REPORT EXAM: Two-dimensional and M-mode echocardiogram with Doppler and color Doppler. Other Information Quality : AverageHR: 98bpm Rhythm : Atrial Fibrillation INDICATION Atrial Fibrillation Congestive Heart Failure RISK FACTORS Obesity 2D DIMENSIONS RVDd3.5 (2.9-3.5cm)Left Atrium(2D)4.3 (1.6-4.0cm) IVSd1.1 (0.7-1.1cm)LVDd4.9 (3.9-5.9cm) LVOT Diameter2.5 (1.8-2.4cm)PWd1.2 (0.7-1.1cm) LVDs4.1 (2.5-4.0cm)FS (%) 14.8 % SV34.7 mlLVEF(%)35.0 (>50%) Aortic Valve AoV Peak Justin.86.9cm/sAoV VTI17.1cm AO Peak GR.3.0mmHgLVOT Peak Justin.70.0cm/s AO Mean GR.2mmHgAVA (VMAX)4.03cm2 Mitral Valve MV E Peak Gr.4mmHgMV E Mean Gr.2mmHg Pulmonary Valve PV Peak Uwusoxyp30.3cm/s Tricuspid Valve TR P. [id number]/sRAP [id number] TR Peak Gr.[id number] LEFT VENTRICLE The left ventricle is normal size. There is mild concentric left ventricular hypertrophy and mild api nilo dilatation Left ventricle systolic function is moderately impaired. The Ejection Fraction is 35%. There is moderate global hypokinesis of the left ventricle. Unable to assess the left ventricular di astolic function due to atrial fibrillation. No left ventricle thrombus noted on this study. RIGHT VENTRICLE The right ventricle is normal size. There is normal right ventricular wall thickness. The right ventr icular systolic function is normal. ATRIA The left atrium is moderately dilated. The right atrium is moderately dilated. The interatrial septum is intact with no evidence for an atrial septal defect or patent foramen ovale as noted on 2-D or Do ppler imaging. AORTIC VALVE The aortic valve is not well visualized. Doppler and Color Flow revealed no significant aortic regurg itation. There is no significant aortic valvular stenosis. MITRAL VALVE The mitral valve leaflets are thickened. There is no evidence of mitral valve prolapse. There is no m itral valve stenosis. Doppler and Color Flow revealed mild mitral regurgitation. TRICUSPID VALVE Doppler and Color Flow revealed moderate tricuspid regurgitation. The pulmonary artery systolic press ure is estimated at 61 mmHg. There is moderate-severe pulmonary hypertension. PULMONIC VALVE The pulmonic valve is not well visualized. Doppler and Color Flow revealed no pulmonic valvular regur gitation. There is no pulmonic valvular stenosis. GREAT VESSELS The aortic root is normal in size. The ascending aorta is normal in size. The pulmonary artery is nor mal. The IVC is normal in size and collapses >50% with inspiration. PERICARDIAL EFFUSION There is no evidence of significant pericardial effusion. Critical Notification Critical Value: No <Conclusion> There is mild concentric left ventricular hypertrophy and mild apical dilatation Left ventricle systolic function is moderately impaired. The Ejection Fraction is 35%. There is moderate global hypokinesis of the left ventricle. Unable to assess the left ventricular diastolic function due to atrial fibrillation. The left atrium is moderately dilated. The right atrium is moderately dilated. The aortic valve is not well visualized. Doppler and Color Flow revealed mild mitral regurgitation. Doppler and Color Flow revealed moderate tricuspid regurgitation. The pulmonary artery systolic pressure is estimated at 61 mmHg. There is moderate-severe pulmonary hypertension. The pulmonic valve is not well visualized. There is no evidence of significant pericardial effusion.
[2016-09-13] MEDS ORDERED: METFORMIN 500 MG TABLET. PO SCH (08:00)
--- NOTE | 2016-09-13 08:11 | RAD ---
CT-guided aspiration of periumbilical fluid collection Indication: 56-year-old male who is 2 weeks status post umbilical hernia repair. He has a periumbilical complex fluid collection, with fever, pain, and fullness. Postoperative seroma versus hematoma versus abscess. Image guided aspiration, with possible drain placement, has been requested by general surgery. Anesthesia: 31 minutes moderate sedation was provided utilizing a total of 1 mg Versed and 50 mcg fentanyl, IV. The patient was appropriately monitored by a qualified independent observer throughout the time of moderate sedation. PQRS Compliance Statement: One or more of the following individualized dose reduction techniques was/were utilized for this CT examination or procedure: 1. Automated exposure control. 2. Adjustment of mA and/or kV according to patient size. 3. Iterative reconstruction technique. Procedure: Informed consent was obtained from the patient. He was placed supine on the CT scanner. Preliminary noncontrast CT images confirmed the presence of a periumbilical subcutaneous complex fluid collection measuring 7 cm in size. A right parasagittal skin site suitable for CT-guided aspiration was selected and marked. That area was prepped and draped in the usual sterile fashion. Due to patient anxiety, conscious sedation was provided with IV Versed and fentanyl. Using aseptic technique, local anesthesia, and a CT guidance, a small micropuncture sheath was successfully introduced into the periumbilical complex fluid collection. A total of 80 cc of old blood was easily aspirated, a sample of which was submitted to microbiology for culture and sensitivity. The micropuncture sheath was removed and a sterile dressing was applied. Completion CT images revealed essentially complete resolution of the postoperative hematoma. Patient tolerated the procedure well without apparent complication. Impression: Successful, uneventful CT-guided aspiration of periumbilical postoperative hematoma, as described.
== END 2016-09-12 14:00 | disposition home or self-care (01) | DRG 857 ==
LOC: ER 15:56 → 4 NORTH 19:30
PROVIDERS: ADMIT Internal Medicine Hematology & Oncology; ATTEND Internal Medicine Hematology & Oncology
PROC: 0W9F3ZX Drainage of Abdominal Wall, Percutaneous Approach, Diagnostic (ICD-10-PCS; principal; 2016-09-12)
DX: T81.4XXA Infection following a procedure, initial encounter (principal); L02.211 Cutaneous abscess of abdominal wall; I48.92 Unspecified atrial flutter; E87.2 Acidosis; M96.843 Postprocedural seroma of a musculoskeletal structure following other procedure; M96.841 Postprocedural hematoma of a musculoskeletal structure following other procedure; E03.9 Hypothyroidism, unspecified; E11.9 Type 2 diabetes mellitus without complications; E66.01 Morbid (severe) obesity due to excess calories; E78.00 Pure hypercholesterolemia, unspecified; E78.5 Hyperlipidemia, unspecified; G47.33 Obstructive sleep apnea (adult) (pediatric); I48.2 Chronic atrial fibrillation; I25.10 Atherosclerotic heart disease of native coronary artery without angina pectoris; I50.9 Heart failure, unspecified; I11.0 Hypertensive heart disease with heart failure; F41.9 Anxiety disorder, unspecified; M19.90 Unspecified osteoarthritis, unspecified site; Z60.2 Problems related to living alone; Z83.3 Family history of diabetes mellitus; Z82.3 Family history of stroke; Z82.49 Family history of ischemic heart disease and other diseases of the circulatory system; Z98.52 Vasectomy status; Z91.040 Latex allergy status
CPT/HCPCS: 10022; 36415; 71010; 74177; 77012; 80053; 80061; 80076; 80202; 81001; 82947; 83605; 83880; 85027; 87040; 87071; 87075; 87205; 87804; 93306; 96365; 96366; 96375; C1892; J1650; J1815; J2060; J2250; J2543; J3010; J3370; J7030; J7040; Q9967; 99285-25

== ENCOUNTER 2019-02-22 15:33 | Inpatient (IN) | payer MEDICAID, OTHER ==
[2019-02-22] VITALS (10 sets, daily range): BP systolic 104–133; BP diastolic 67–82
[~2019-02-22] VITALS: Ht 177.8 cm; Wt 159.7 kg
[~2019-02-22 15:33] MED LIST changes: +CARV3.1210 PO; -CARV3.122 PO; +HYDR-3164 PO; -HYDR-971 PO; +METF500T16 PO; -METF500T4 PO; -OXYC-323 PO; +OXYC1TAB15 PO; -POTA10CA PO; +POTA10TA12 PO
[2019-02-22] MEDS ORDERED: dilTIAZem IV PUSH 25 MG/5 ML VIAL IVP ONE (15:45)
[2019-02-22] MEDS ORDERED: dilTIAZem INJ 125 MG in IV DEXTROSE 5% 100ML 100 ML IV ONE (15:45)
--- NOTE | 2019-02-22 15:53 | EKG ---
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
[2019-02-22] MEDS ORDERED: AMIODARONE 150 MG in IV DEXTROSE 5% 100ML 100 ML IV ONE (16:15)
--- NOTE | 2019-02-22 16:15 | PHYS DOC ---
Past Medical History Past Medical History: A-Fib, Anxiety, CHF, Diabetes-Type II, High Cholesterol, Hypertension, Hypothyroid Past Surgical History: Other Additional Past Surgical Histo: Vasectomy, umbilical hernia Alcohol Use: Occasionally Drug Use: None Adult General Chief Complaint Chief Complaint: syncope HPI HPI Patient is a 58 year old male with history of atrial fibrillation on Xarelto w ho presents via EMS with syncope and tachyarrhythmia. Patient states he had moderate to severe activity today and felt shortness of breath and dizzy and exhausted that improved with a short time rest. Patient syncopal episode about 30 minutes after episodes of dizziness and hit his back of his head with a short time loss of consciousness without seizure activity. EMS reported that patient had heart rate of 200 and treated him with diagnosis of SVT with adenosine 6 and 12 mg without response to treatment. Patient was alert and oriented at at arrival to ER and complaining of mild pressure feeling in left side of his chest without palpitation, shortness of breath, focal neuro deficit, fever and chills, using illegal drugs or drinking alcohol. Patient later on stated that he had several cardioversion in 1 day in [facility] about 6 years ago. Review of Systems Review of Systems Constitutional: Denies fever or chills [] Eyes: Denies change in visual acuity, redness, or eye pain [] HENT: Denies nasal congestion or sore throat [] Respiratory: Denies cough or shortness of breath [] Cardiovascular: No additional information not addressed in HPI [] GI: Denies abdominal pain, nausea, vomiting, bloody stools or diarrhea [] : Denies dysuria or hematuria [] Musculoskeletal: Denies back pain or joint pain [] Integument: Denies rash or skin lesions [] Neurologic: Denies headache, focal weakness or sensory changes [] Endocrine: Denies polyuria or polydipsia [] All other systems were reviewed and found to be within normal limits, except as documented in this note. Current Medications Current Medications Current Medications Medications (Trade) Dose Ordered Sig/[place] Start Time Stop Time Status Last Admin Dose Admin Amiodarone HCl 150 mg/Dextrose 103 ml @ 618 mls/hr 1X ONCE 02/22/19 16:15 02/22/19 16:24 DC 02/22/19 16:35 618 MLS/HR Diltiazem HCl (Cardizem Iv Push) 20 mg 1X ONCE 02/22/19 15:45 02/22/19 15:46 DC 02/22/19 16:29 20 MG Diltiazem HCl 125 mg/Dextrose 125 ml @ 10 mls/hr 1X ONCE 02/22/19 15:45 02/23/19 04:14 Allergies Allergies Allergies Coded Allergies Type Severity Reaction Last Updated Verified latex Allergy Intermediate Rash,skin tear off 08/28/16 Yes Physical Exam Physical Exam Constitutional: Well developed, well nourished, mild distress, non-toxic appearance. [] HENT: Normocephalic, atraumatic. Eyes: PERRLA, EOMI, conjunctiva normal, no discharge. [] Neck: Normal range of motion, no tenderness, supple, no stridor. [] Cardiovascular: Tachycardia, no murmur [] Lungs & Thorax: Bilateral breath sounds clear to auscultation [] Abdomen: Bowel sounds normal, soft, no tenderness, no masses, no pulsatile masses. [] Skin: Warm,no erythema, no rash, diaphoretic. [] Back: No tenderness, no CVA tenderness. [] Extremities: No tenderness, no cyanosis, no clubbing, ROM intact, no edema. [] Neurologic: Alert and oriented X 3, no focal deficits noted. [] Psychologic: Affect normal, judgement normal, mood normal. [] Current Patient Data Lab Values Laboratory Tests Test 02/22/19 16:05 White Blood Count 13.7 x10^3/uL (4.0-11.0) H Red Blood Count 5.25 x10^6/uL (4.30-5.70) Hemoglobin 15.7 g/dL (13.0-17.5) Hematocrit 46.4 % (39.0-53.0) Mean Corpuscular Volume 88 fL (79-100) Mean Corpuscular Hemoglobin 30 pg (25-35) Mean Corpuscular Hemoglobin Concent 34 g/dL (31-37) Red Cell Distribution Width 13.1 % (11.5-14.5) Platelet Count 265 x10^3/uL (140-400) Neutrophils (%) (Auto) 62 % (31-73) Lymphocytes (%) (Auto) 26 % (24-48) Monocytes (%) (Auto) 10 % (0-9) H Eosinophils (%) (Auto) 1 % (0-3) Basophils (%) (Auto) 1 % (0-3) Neutrophils # (Auto) 8.5 x10^3/uL (1.8-7.7) H Lymphocytes # (Auto) 3.6 x10^3/uL (1.0-4.8) Monocytes # (Auto) 1.4 x10^3/uL (0.0-1.1) H Eosinophils # (Auto) 0.2 x10^3/uL (0.0-0.7) Basophils # (Auto) 0.1 x10^3/uL (0.0-0.2) Prothrombin Time 18.1 SEC (11.7-14.0) H Prothrombin Time INR 1.5 (0.8-1.1) H D-Dimer (Nasrin) < 0.27 ug/mlFEU Sodium Level 139 mmol/L (136-145) Potassium Level 3.9 mmol/L (3.5-5.1) Chloride Level 104 mmol/L (98-107) Carbon Dioxide Level 21 mmol/L (21-32) Anion Gap 14 (6-14) Blood Urea Nitrogen 17 mg/dL (8-26) Creatinine 1.1 mg/dL (0.7-1.3) Estimated GFR (Cockcroft-Gault) 68.8 BUN/Creatinine Ratio 15 (6-20) Glucose Level 296 mg/dL (70-99) H Calcium Level 9.2 mg/dL (8.5-10.1) Magnesium Level 1.6 mg/dL (1.8-2.4) L Total Bilirubin 0.9 mg/dL (0.2-1.0) Aspartate Amino Transferase (AST) 19 U/L (15-37) Alanine Aminotransferase (ALT) 21 U/L (16-63) Alkaline Phosphatase 111 U/L (46-116) Creatine Kinase 180 U/L (39-308) Troponin I Quantitative < 0.017 ng/mL (0.000-0.055) NI-Jyt-D-Type Natriuretic Peptide 1272 pg/mL (0-124) H Total Protein 7.5 g/dL (6.4-8.2) Albumin 4.1 g/dL (3.4-5.0) Albumin/Globulin Ratio 1.2 (1.0-1.7) Lipase 110 U/L (73-393) Laboratory Tests 02/22/19 16:05 Laboratory Tests 02/22/19 16:05 EKG EKG EKG interpreted by me. EKG at 1542 showed atrial fibrillation with RVR at rate of 25 versus ventricular tachycardia, abnormal right superior axis deviation, left ventricular hypertrophy, right ventricular hypertrophy, Repeat EKG after cardioversion at 1720 showed atrial fibrillation at rate of 69, PVCs, abnormal right superior axis deviation, nonspecific intraventricular block, no acute ST and T-wave abnormalities Radiology/Procedures Radiology/Procedures [][facility] [address] [place] [address] IMAGING REPORT Signed PATIENT: ALONSO GALEANO ACCOUNT: [id number] : 1960 LOCATION: ER AGE: 58 SEX: M EXAM STATUS: REG ER ORD. PHYSICIAN: GUNNAR ZABALA MD REASON: atrial fibrillation with RVR PROCEDURE: PORTABLE CHEST 1V Chest radiograph 02/22/2019 3:42 PM INDICATION: Atrial fibrillation with RVR COMPARISON: 09/11/2016 TECHNIQUE: Frontal view of the chest is provided. FINDINGS: The cardiomediastinal silhouette is enlarged, stable. Mild pulmonary vascular congestion. No significant pleural effusions or pneumothorax. Right hilar prominence may be vascular versus lymphadenopathy. IMPRESSION: Mild congestive heart failure. Prominence of the right artur may be secondary to prominent pulmonary vasculature versus lymphadenopathy. Electronically signed by: Kim Dunn MD (02/22/2019 4:40 PM) [facility] DICTATED and SIGNED BY: KIM DUNN MD DATE: 02/22/19 1640 Course & Med Decision Making Course & Med Decision Making Pertinent Labs and Imaging studies reviewed. (See chart for details) Evaluation of patient in ER showed 58-year-old male patient brought in by EMS because of syncope and heart rate of more than 200. Patient blood pressure of 160/86 with heart rate of 202 that did not get better with Adenosine 6 and 12 mg given by EMS. Patient treated with Cardizem bolus 20 mg without change of heart rate. Patient treated with amiodarone bolus and drip that change of heart rate and blood pressure gradually dropped to 80s. Dr. Liao on-call hydroelectric plant maintainer was consulted at 1601 and 1705 and agreed with plan of cardioversion the patient. Patient had synchronized 200 J cardioversion at 1712 after giving 5 mg of Versed and heart rate 100. Patient tolerated the procedure well.Patient requiring admission for further evaluation and treatment. Discussed with Dr. Balderrama who is in agreement with admission. Discussed findings and plan with patient and family, who acknowledge understanding and agreement. CT head is pending. Dragon Disclaimer Dragon Disclaimer This electronic medical record was generated, in whole or in part, using a voice recognition dictation system. Departure Departure Impression: Primary Impression: Ventricular tachycardia Additional Impressions: Uncontrolled diabetes mellitus Chest pain Syncope Referrals: CHILO DYSON (PCP) Critical Care Time Critical care time was 100 minutes exclusive of procedures. The HEART Score for CP Pts HEART Score for Chest Pain: HEART Score for Chest Pain Response (Comments) Value History Moderately Suspicious 1 ECG Nonspecific Repolarizatio 1 Age >45 - < 65 1 Risk Factors 1 or 2 Risk Factors 1 Troponin < Normal Limit 0 Total 4 Risk Factors: Risk Factors: DM, Current or recent (<one month) smoker, HTN, HLP, family history of CAD, obesity. Risk Scores: Score 0 - 3: 2.5% MACE over next 6 weeks - Discharge Home Score 4 - 6: 20.3% MACE over next 6 weeks - Admit for Clinical Observation Score 7 - 10: 72.7% MACE over next 6 weeks - Early Invasive Strategies Problem Qualifiers Additional Impressions: Uncontrolled diabetes mellitus Diabetes mellitus type: other specified (including ARY) Glycemic state: with hyperglycemia Qualified Codes: E13.65 - Other specified diabetes mellitus with hyperglycemia Chest pain Chest pain type: unspecified Qualified Codes: R07.9 - Chest pain, unspecified Syncope Syncope type: unspecified Qualified Codes: R55 - Syncope and collapse GUNNAR ZABALA MD Feb 22, 2019 16:15
[2019-02-22 16:16] LABS: BASO # 0.1 x10^3/uL (0.0-0.2); BASO % 1 % (0-3); EOS # 0.2 x10^3/uL (0.0-0.7); EOS % 1 % (0-3); HEMATOCRIT 46.4 % (39.0-53.0); HEMOGLOBIN 15.7 g/dL (13.0-17.5); LYMPH # 3.6 x10^3/uL (1.0-4.8); LYMPH % 26 % (24-48); MEAN CORPUSCULAR HEMOGLOBIN 30 pg (25-35); MEAN CORPUSCULAR HGB CONC 34 g/dL (31-37); MEAN CORPUSCULAR VOLUME 88 fL (79-100); MONO # 1.4 x10^3/uL (0.0-1.1); MONO % 10 % (0-9); NEUT # 8.5 x10^3/uL (1.8-7.7); NEUT % 62 % (31-73); PLATELET COUNT 265 x10^3/uL (140-400); RED BLOOD COUNT 5.25 x10^6/uL (4.30-5.70); RED CELL DISTRIBUTION WIDTH 13.1 % (11.5-14.5); WHITE BLOOD COUNT 13.7 x10^3/uL (4.0-11.0)
[2019-02-22 16:23] LABS: PROTHROMBIN TIME PATIENT 18.1 SEC (11.7-14.0)
[2019-02-22 16:30] LABS: D-DIMER < 0.27 ug/mlFEU (0.00-0.50)
[2019-02-22] MEDS ORDERED: AMIODARONE 900 MG in IV DEXTROSE 5% 500 ML IV PRN (16:30)
[2019-02-22 16:34] LABS: CALCIUM 9.2 mg/dL (8.5-10.1); CREATININE 1.1 mg/dL (0.7-1.3); GFR 68.8; POTASSIUM 3.9 mmol/L (3.5-5.1)
--- NOTE | 2019-02-22 16:43 | RAD ---
Chest radiograph 02/22/2019 3:42 PM INDICATION: Atrial fibrillation with RVR COMPARISON: 09/11/2016 TECHNIQUE: Frontal view of the chest is provided. FINDINGS: The cardiomediastinal silhouette is enlarged, stable. Mild pulmonary vascular congestion. No significant pleural effusions or pneumothorax. Right hilar prominence may be vascular versus lymphadenopathy. IMPRESSION: Mild congestive heart failure. Prominence of the right artur may be secondary to prominent pulmonary vasculature versus lymphadenopathy. Electronically signed by: Kylie Hector MD (02/22/2019 4:40 PM) [facility]
[2019-02-22 16:47] LABS: ALBUMIN 4.1 g/dL (3.4-5.0); ALBUMIN/GLOBULIN RATIO 1.2 (1.0-1.7); MAGNESIUM 1.6 mg/dL (1.8-2.4); TOTAL BILIRUBIN 0.9 mg/dL (0.2-1.0); TOTAL PROTEIN 7.5 g/dL (6.4-8.2)
[2019-02-22] MEDS ORDERED: MIDAZOLAM HCL/PF 5 MG/5 ML VIAL. ONE (16:54)
[2019-02-22] MEDS ORDERED: fentaNYL PF VIAL 100 MCG/2 ML VIAL IV ONE (17:00)
[2019-02-22] MEDS ORDERED: IV NORMAL SALINE 1000ML BAG 1,000 ML IV ONE (17:00)
[2019-02-22] MEDS ORDERED: MIDAZOLAM HCL/PF 5 MG/5 ML VIAL. NS ONE (17:00)
--- NOTE | 2019-02-22 18:31 | RAD ---
CT HEAD WO CONTRAST History: Fall Comparison: None. Technique: Noncontrast CT imaging was performed of the head. Exposure: One or more of the following individualized dose reduction techniques were utilized for this examination: 1. Automated exposure control 2. Adjustment of the mA and/or kV according to patient size 3. Use of iterative reconstruction technique. Findings: No acute extra-axial or parenchymal hemorrhage is identified. There is no significant intra-axial mass effect, midline shift, or extra-axial fluid collection. The ying-white differentiation of the major vascular territories is preserved. Ventricular size is within normal limits. The mastoid air cells and the visualized paranasal sinuses are aerated. No acute calvarial abnormality is identified. Impression: 1. No acute intracranial abnormality is identified. Electronically signed by: Bennie Bishop MD (02/22/2019 6:28 PM) [facility]
--- NOTE | 2019-02-22 18:52 | NUR ---
Pt arrived to [facility] 105 @ 1635. Pt A&O x4, Afib on the monitor. Normal saline running @ 125. Amiodarone infusing. Dr. Poe saw pt at bedside upon arrival, no orders received.
[2019-02-22] MEDS: LISINOPRIL 20 MG TABLET PO SCH (19:30)
[2019-02-22] MEDS: CARVEDILOL 3.125 MG TABLET. PO SCH (19:30)
[2019-02-22] MEDS ORDERED: DOCUSATE SODIUM 100 MG CAPSULE. PO PRN (19:45)
--- NOTE | 2019-02-22 20:17 | PDOC1 ---
History and Physical Date of Admission Date of Admission DATE: 02/22/19 TIME: 20:16 Identification/Chief Complaint Chief Complaint shortness of breath, syncope Source Source: Chart review, Patient History of Present Illness History of Present Illness Patient is a 58 year old male admit to the ICU after cardioversion in the ER. 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 He has a history of atrial fibrillation on Xarelto who presents via EMS with syncope and tachyarrhythmia. He had a prodrome of marked shortness of breath and dizzy and exhausted that improved with a short time rest. Patient syncopal episode about 30 minutes after episodes of dizziness and hit his back of his head with a short time loss of consciousness without seizure activity. Mr. Parsons reports a prior indicent where this happened at home, and he just went to bed and it went away. EMS reported that patient had heart rate of 200 and treated him with diagnosis of SVT with adenosine 6 and 12 mg without response to treatment. Patient was alert and oriented at at arrival to ER, but was sedated before DC cardioversion Past Medical History Cardiovascular: AFIB, CHF, HTN, Hyperlipidemia Pulmonary: Other CENTRAL NERVOUS SYSTEM: Other GI: No pertinent hx Heme/Onc: No pertinent hx Hepatobiliary: No pertinent hx Psych: Anxiety Musculoskeletal: Osteoarthritis Rheumatologic: No pertinent hx Infectious disease: No pertinent hx Renal/: No pertinent hx Endocrine: Diabetes, Hypothyroidism Past Surgical History Past Surgical History: Hernia Repair, Other Family History Family History: Coronary Artery Disease, Heart Disease, Stroke Social History Smoke: No ALCOHOL: other (quit, prior abuse, in AA) Drugs: None Current Problem List Problem List Problems Medical Problems: (1) Chest pain Status: Acute (2) Syncope Status: Acute (3) Uncontrolled diabetes mellitus Status: Acute (4) Ventricular tachycardia Status: Acute Current Medications Current Medications Current Medications Diltiazem HCl (Cardizem Iv Push) 20 mg 1X ONCE IVP Last administered on 02/22/19at 16:29; Start 02/22/19 at 15:45; Stop 02/22/19 at 19:18; Status DC Diltiazem HCl 125 mg/Dextrose 125 ml @ 10 mls/hr 1X ONCE IV ; Start 02/22/19 at 15:45; Stop 02/22/19 at 19:18; Status DC Amiodarone HCl 900 mg/Dextrose 518 ml @ 0 mls/hr CONT PRN IV SEE I/O RECORD Last administered on 02/22/19at 16:43; Start 02/22/19 at 16:30; Stop 02/22/19 at 16:43; Status DC Amiodarone HCl 150 mg/Dextrose 103 ml @ 618 mls/hr 1X ONCE IV Last administered on 02/22/19at 16:35; Start 02/22/19 at 16:15; Stop 02/22/19 at 19:18 ; Status DC Fentanyl Citrate (Fentanyl 2ml Vial) 50 mcg 1X ONCE IV Last administered on 02/22/19at 16:44; Start 02/22/19 at 17:00; Stop 02/22/19 at 19:18; Status DC Midazolam HCl (Versed) 5 mg 1X ONCE NS Last administered on 02/22/19at 17:41; Start 02/22/19 at 17:00; Stop 02/22/19 at 19:18; Status DC Sodium Chloride 1,000 ml @ 125 mls/hr 1X ONCE IV Last administered on 02/22at 17:42; Start 02/22/19 at 17:00; Stop 02/23/19 at 00:59 Midazolam HCl (Versed) 5 mg STK-MED ONCE .ROUTE ; Start 02/22/19 at 16:54; Stop 02/22/19 at 16:54; Status DC Amiodarone HCl 900 mg/Dextrose 518 ml @ 17 mls/hr CONT PRN IV SEE I/O RECORD Last administered on 02/22/19at 19:31; Start 02/23/19 at 17:00 Carvedilol (Coreg) 3.125 mg BIDWMEALS PO ; Start 02/22/19 at 19:30 Furosemide (Lasix) 10 mg DAILY PO ; Start 02/23/19 at 09:00 Lisinopril (Prinivil) 20 mg QEVNG PO ; Start 02/22/19 at 19:30 Rivaroxaban (Xarelto) 10 mg BID PO ; Start 02/23/19 at 09:00 Zolpidem Tartrate (Ambien) 5 mg PRN QHS PRN PO INSOMNIA; Start 02/22/19 at 1 9:45 Docusate Sodium (Colace) 100 mg PRN DAILY PRN PO CONSTIPATION; Start 02/22/19 at 19:45 Active Scripts Active Reported Percocet 5-325 Mg Tablet (Oxycodone/Acetaminophen) 1 Each Tablet 1-2 Tab PO Q4-6HRS PRN Levothyroxine Sodium 75 Mcg Tablet 1 Tab PO DAILY Lisinopril 20 Mg Tablet 1 Tab PO QEVNG Potassium Chloride 10 Meq Capsule.er 10 Meq PO QEVNG Xarelto (Rivaroxaban) 10 Mg Tablet 10 Mg PO BID Carvedilol (Carvedilol) 3.125 Mg Tablet 3.125 Mg PO BIDWMEALS Glimepiride 1 Mg Tablet 1 Mg PO QEVNG Furosemide 20 Mg Tablet 10 Mg PO DAILY Pravastatin Sodium 10 Mg Tablet 10 Mg PO QEVNG Metformin Hcl 500 Mg Tablet 500 Mg PO BIDWMEALS Allergies Allergies: Coded Allergies: latex (Verified Allergy, Intermediate, Rash,skin tear off, 08/28/16) ROS General: YES: Fatigue, Malaise PSYCHOLOGICAL ROS: YES: Sleep disturbances; No: Anxiety, Behavioral Disorder, Concentration difficultie, Decreased libido, Depression, Disorientation, Hallucinations, Hostility, Irritablity, Me mansi difficulties, Mood Swings, Obsessive thoughts, Other Eyes: No Blurry vision, No Decreased vision, No Double vision, No Dry eyes, No Excessive tearing, No Eye Pain, No Itchy Eyes, No Loss of vision, No Photophobia, No Scotomata, No Uses contacts, No Uses glasses, No Other HEENT: No: Heacaches, Visual Changes, Hearing change, Nasal congestion, Nasal discharge, Oral lesions, Sinus pain, Sore Throat, Epistaxis, Sneezing, Snoring, Tinnitus, Vertigo, Vocal changes, Other Respiratory: No: Cough, Hemoptysis, Orthopnea, Pleuritic Pain, Shortness of breath, SOB with excertion, Sputum Changes, Stridor, Tachypnea, Wheezing, Other Cardiovascular: yes Other; No Chest Pain, No Palpitations, No Orthopnea, No Paroxysmal Noc. Dyspnea, No Edema, No Lt Headedness Gastrointestinal: Yes Other; No Nausea, No Vomiting, No Abdominal Pain, No Diarrhea, No Constipation, No Melena, No Hematochezia Genitourinary: No Dysuria, No Frequency, No Incontinence, No Hematuria, No Retention, No Discharge, No Urgency, No Pain, No Flank Pain, No Other, No , No , No , No , No , No , No Musculoskeletal: Yes Joint Stiffness; No Gait Disturbance, No Joint Swelling, No Muscle Pain, No Muscular Weakness, No Pain In:, No Swelling In:, No Other Neurological: No Behavorial Changes, No Bowel/Bladder ControlChng, No Confusion, No Dizziness, No Gait Disturbance, No Headaches, No Impaired Coord/balance, No Memory Loss, No Numbness/Tingling, No Seizures, No Speech Problems, No Tremors, No Visual Changes, No Weakness, No Other Skin: No Dry Skin, No Eczema, No Hair Changes, No Lumps, No Mole Changes, No Mottling, No Nail Changes, No Pruritus, No Rash, No Skin Lesion Changes, No Other, No Acne Physical Exam General: Alert, Oriented X3, Cooperative HEENT: Atraumatic, PERRLA Lungs: Clear to auscultation Heart: irregularly irregular, other Abdomen: Normal bowel sounds, Soft (obese) Extremities: No cyanosis, No edema, Normal pulses Neuro: Normal speech, Normal tone, Sensation intact Psych/Mental Status: Mental status NL, Mood NL Vitals Vitals Vital Signs Date Time Temp Pulse Resp B/P (MAP) Pulse Ox O2 Delivery O2 Flow Rate FiO2 02/22/19 19:33 98 02/22/19 19:02 20 02/22/19 18:42 97.5 106/67 (80) 100 Nasal Cannula 3.0 97.5 Labs Labs Laboratory Tests Test 02/22/19 16:05 02/22/19 16:54 White Blood Count 13.7 x10^3/uL (4.0-11.0) Red Blood Count 5.25 x10^6/uL (4.30-5.70) Hemoglobin 15.7 g/dL (13.0-17.5) Hematocrit 46.4 % (39.0-53.0) Mean Corpuscular Volume 88 fL (79-100) Mean Corpuscular Hemoglobin 30 pg (25-35) Mean Corpuscular Hemoglobin Concent 34 g/dL (31-37) Red Cell Distribution Width 13.1 % (11.5-14.5) Platelet Count 265 x10^3/uL (140-400) Neutrophils (%) (Auto) 62 % (31-73) Lymphocytes (%) (Auto) 26 % (24-48) Monocytes (%) (Auto) 10 % (0-9) Eosinophils (%) (Auto) 1 % (0-3) Basophils (%) (Auto) 1 % (0-3) Neutrophils # (Auto) 8.5 x10^3/uL (1.8-7.7) Lymphocytes # (Auto) 3.6 x10^3/uL (1.0-4.8) Monocytes # (Auto) 1.4 x10^3/uL (0.0-1.1) Eosinophils # (Auto) 0.2 x10^3/uL (0.0-0.7) Basophils # (Auto) 0.1 x10^3/uL (0.0-0.2) Prothrombin Time 18.1 SEC (11.7-14.0) Prothromb Time International Ratio 1.5 (0.8-1.1) D-Dimer (Nasrin) < 0.27 ug/mlFEU Sodium Level 139 mmol/L (136-145) Potassium Level 3.9 mmol/L (3.5-5.1) Chloride Level 104 mmol/L (98-107) Carbon Dioxide Level 21 mmol/L (21-32) Anion Gap 14 (6-14) Blood Urea Nitrogen 17 mg/dL (8-26) Creatinine 1.1 mg/dL (0.7-1.3) Estimated GFR (Cockcroft-Gault) 68.8 BUN/Creatinine Ratio 15 (6-20) Glucose Level 296 mg/dL (70-99) Calcium Level 9.2 mg/dL (8.5-10.1) Magnesium Level 1.6 mg/dL (1.8-2.4) Total Bilirubin 0.9 mg/dL (0.2-1.0) Aspartate Amino Transf (AST/SGOT) 19 U/L (15-37) Alanine Aminotransferase (ALT/SGPT) 21 U/L (16-63) Alkaline Phosphatase 111 U/L (46-116) Creatine Kinase 180 U/L (39-308) Troponin I Quantitative < 0.017 ng/mL (0.000-0.055) DR-Tiv-Z-Type Natriuretic Peptide 1272 pg/mL (0-124) Total Protein 7.5 g/dL (6.4-8.2) Albumin 4.1 g/dL (3.4-5.0) Albumin/Globulin Ratio 1.2 (1.0-1.7) Lipase 110 U/L (73-393) Glucose (Fingerstick) 303 mg/dL (70-99) Laboratory Tests Test 02/22/19 16:05 02/22/19 16:54 White Blood Count 13.7 x10^3/uL (4.0-11.0) Red Blood Count 5.25 x10^6/uL (4.30-5.70) Hemoglobin 15.7 g/dL (13.0-17.5) Hematocrit 46.4 % (39.0-53.0) Mean Corpuscular Volume 88 fL (79-100) Mean Corpuscular Hemoglobin 30 pg (25-35) Mean Corpuscular Hemoglobin Concent 34 g/dL (31-37) Red Cell Distribution Width 13.1 % (11.5-14.5) Platelet Count 265 x10^3/uL (140-400) Neutrophils (%) (Auto) 62 % (31-73) Lymphocytes (%) (Auto) 26 % (24-48) Monocytes (%) (Auto) 10 % (0-9) Eosinophils (%) (Auto) 1 % (0-3) Basophils (%) (Auto) 1 % (0-3) Neutrophils # (Auto) 8.5 x10^3/uL (1.8-7.7) Lymphocytes # (Auto) 3.6 x10^3/uL (1.0-4.8) Monocytes # (Auto) 1.4 x10^3/uL (0.0-1.1) Eosinophils # (Auto) 0.2 x10^3/uL (0.0-0.7) Basophils # (Auto) 0.1 x10^3/uL (0.0-0.2) Prothrombin Time 18.1 SEC (11.7-14.0) Prothromb Time International Ratio 1.5 (0.8-1.1) D-Dimer (Nasrin) < 0.27 ug/mlFEU Sodium Level 139 mmol/L (136-145) Potassium Level 3.9 mmol/L (3.5-5.1) Chloride Level 104 mmol/L (98-107) Carbon Dioxide Level 21 mmol/L (21-32) Anion Gap 14 (6-14) Blood Urea Nitrogen 17 mg/dL (8-26) Creatinine 1.1 mg/dL (0.7-1.3) Estimated GFR (Cockcroft-Gault) 68.8 BUN/Creatinine Ratio 15 (6-20) Glucose Level 296 mg/dL (70-99) Calcium Level 9.2 mg/dL (8.5-10.1) Magnesium Level 1.6 mg/dL (1.8-2.4) Total Bilirubin 0.9 mg/dL (0.2-1.0) Aspartate Amino Transf (AST/SGOT) 19 U/L (15-37) Alanine Aminotransferase (ALT/SGPT) 21 U/L (16-63) Alkaline Phosphatase 111 U/L (46-116) Creatine Kinase 180 U/L (39-308) Troponin I Quantitative < 0.017 ng/mL (0.000-0.055) VD-Wwo-U-Type Natriuretic Peptide 1272 pg/mL (0-124) Total Protein 7.5 g/dL (6.4-8.2) Albumin 4.1 g/dL (3.4-5.0) Albumin/Globulin Ratio 1.2 (1.0-1.7) Lipase 110 U/L (73-393) Glucose (Fingerstick) 303 mg/dL (70-99) VTE Prophylaxis Ordered VTE Prophylaxis Devices: No VTE Pharmacological Prophylaxi: Yes Assessment/Plan Assessment/Plan SVT in field, unable to break with Adenosine pt sedated and DC cardioverted in ER then Afib with RVR, acute diastolic CHF Hx CAd, with chronic systolic CHF Hx Alcohol abuse morbid obesity, BMI 50 admit to ICU CV consult, consider ICD CLARA ARELLANO MD Feb 22, 2019 20:16
[2019-02-22] MEDS ORDERED: DEXTROSE 50% 25 GM / 50ML DISP.SYRIN. IV PRN (22:00)
[2019-02-22] MEDS ORDERED: IV DEXTROSE 5% 250 ML BAG. IV PRN (22:00)
[2019-02-22] MEDS: ZOLPIDEM 5 MG TABLET. PO PRN (22:23)
[2019-02-22] MEDS: CETIRIZINE HCL 10 MG TABLET. PO SCH (22:23)
[2019-02-23] VITALS (25 sets, daily range): BP systolic 107–150; BP diastolic 53–102
--- NOTE | 2019-02-23 01:50 | EKG ---
[facility] [address] [place] [address] Test Date: 2019-02-22 Test Time: 19:17:11 Pat Name: ALONSO GALEANO Department: Room: 105 1 Gender: M Biology Laboratory Assistant: MIKAL : 1960 Requested By: GUNNAR ZABALA Order Number: [id number] Reading MD: Alex Newberry MD Measurements Intervals [place] Rate: 65 P: -103 [place]: 358 QRS: -92 QRSD: 126 T: 66 QT: 512 QTc: 539 Interpretive Statements SINUS RHYTHM WITH PROBABLE LBBB 1ST DEGREE AVB Electronically Signed On 02-23-2019 18:53:26 CDT by Alex Newberry MD
[2019-02-23 05:53] LABS: CALCIUM 8.8 mg/dL (8.5-10.1); CREATININE 0.9 mg/dL (0.7-1.3); GFR 86.7; MAGNESIUM 1.8 mg/dL (1.8-2.4)
[2019-02-23] MEDS: CARVEDILOL 3.125 MG TABLET. PO SCH ×3 (08:00→14:25)
[2019-02-23] MEDS: INSULIN LISPRO 300 UNITS/3 ML VIAL. SQ SCH ×3 (08:30→17:26)
[2019-02-23] MEDS ORDERED: FUROSEMIDE 20 MG TABLET PO SCH (09:00)
[2019-02-23] MEDS ORDERED: RIVAROXABAN 10 MG TABLET. PO SCH (09:00)
[2019-02-23] MEDS ORDERED: GABA600T7 PO (09:10)
[2019-02-23] MEDS ORDERED: ESCITALOPRAM OX10 MG PO (09:10)
[2019-02-23] MEDS ORDERED: ATORVASTATIN CA80 MG PO (09:10)
[2019-02-23] MEDS ORDERED: METO1TAB31 PO (09:10)
[2019-02-23] MEDS ORDERED: RIVA20TA2 PO (09:10)
[2019-02-23] MEDS ORDERED: LISI-334 PO (09:10)
[2019-02-23] MEDS ORDERED: GLIM4TAB2 PO (09:10)
[2019-02-23] MEDS: CETIRIZINE HCL 10 MG TABLET. PO SCH ×2 (10:05→14:21)
--- NOTE | 2019-02-23 11:37 | EKG ---
[facility] [address] [place] [address] Test Date: 2019-02-23 Test Time: 11:29:27 Pat Name: ALONSO GALEANO Department: Room: 105 1 Gender: M Rn Disease Management: THOMAS : 1960 Requested By: CHRISTIAN MORROW Order Number: [id number] Reading MD: Alex Newberry MD Measurements Intervals [place] Rate: 80 P: [place]: QRS: -90 QRSD: 98 T: 43 QT: 456 QTc: 530 Interpretive Statements PROBABLE SUPRAVENTRICULAR TACHYCARDIA WITH ABERRANCY PVC'S Electronically Signed On 02-23-2019 18:46:21 CDT by Alex Newberry MD
--- NOTE | 2019-02-23 11:39 | PDOC2 ---
CHRISTIAN MORROW MICA WASHER GLUER 02/23/19 1138: CARDIAC CONSULT DATE OF CONSULT Date of Consult DATE: 02/23/19 TIME: 11:06 REASON FOR CONSULT Reason for Consult: VT REFERRING PHYSICIAN Referring Physician: Tiffanie SOURCE Source: Chart review, Patient HISTORY OF PRESENT ILLNESS HISTORY OF PRESENT ILLNESS This is a pleasant 58 yo male admitted for complains of passing out. 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 Verbalized feeling fatigue, malaise and unable to keep up with some of the people walking by him and was having palpitations and dizziness. He had several episodes and eventually passed out and fell but nontraumatic. Estimated time that he was unconscious was 30 sec per him. No chest pain and no SOA per se. No occurrence as such in the last yr. 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 His last [facility] was 6 yrs ago and was told that it was ok at that time. He eventually got to ED and was noted with sustained VT and was shocked. Denies any hx of syncope, VT, VTE and nor recent injury and no seizures or stroke. PAST MEDICAL HISTORY Past Medical History Cardiovascular: AFIB, CHF, HTN, Hyperlipidemia, CHF, pulmonary HTN, cardiomyopathy Pulmonary: Other (IZZY) CENTRAL NERVOUS SYSTEM: Other (no pertinent hx) GI: No pertinent hx Heme/Onc: No pertinent hx Hepatobiliary: No pertinent hx Psych: Anxiety Musculoskeletal: Osteoarthritis Rheumatologic: No pertinent hx Infectious disease: No pertinent hx ENT: No pertinent hx Renal/: No pertinent hx Endocrine: Diabetes, Hypothyroidism Dermatology: No pertinent hx PAST SURGICAL HISTORY Past Surgical History umbilical Hernia Repair, Other (vasectomy ) FAMILY HISTORY Family History Coronary Artery Disease, Heart Disease, Stroke SOCIAL HISTORY Social History Smoke: No ALCOHOL: occasional Drugs: None Lives: Alone CURRENT MEDICATIONS CURRENT MEDICATIONS Current Medications Medications (Trade) Dose Ordered Sig/[place] Route PRN Reason Start Time Stop Time Status Last Admin Dose Admin Diltiazem HCl (Cardizem Iv Push) 20 mg 1X ONCE IVP 02/22/19 15:45 02/22/19 19:18 DC 02/22/19 16:29 Amiodarone HCl 900 mg/Dextrose 518 ml @ 0 mls/hr CONT PRN IV SEE I/O RECORD 02/22/19 16:30 02/22/19 16:43 DC 02/22/19 16:43 Amiodarone HCl 150 mg/Dextrose 103 ml @ 618 mls/hr 1X ONCE IV 02/22/19 16:15 02/22/19 19:18 DC 02/22/19 16:35 Fentanyl Citrate (Fentanyl 2ml Vial) 50 mcg 1X ONCE IV 02/22/19 17:00 02/22/19 19:18 DC 02/22/19 16:44 Midazolam HCl (Versed) 5 mg 1X ONCE NS 02/22/19 17:00 02/22/19 19:18 DC 02/22/19 17:41 Sodium Chloride 1,000 ml @ 125 mls/hr 1X ONCE IV 02/22/19 17:00 02/23/19 00:59 DC 02/22/19 17:42 Amiodarone HCl 900 mg/Dextrose 518 ml @ 17 mls/hr CONT PRN IV SEE I/O RECORD 02/23/19 17:00 02/22/19 19:31 Zolpidem Tartrate (Ambien) 5 mg PRN QHS PRN PO INSOMNIA 02/22/19 19:45 02/22/19 22:23 Cetirizine HCl (ZyrTEC) 10 mg DAILY PO 02/22/19 22:15 02/23/19 10:05 Insulin Human Lispro (HumaLOG) 0-7 UNITS TIDWMEALS SQ 02/23/19 08:00 02/23/19 08:30 ALLERGIES ALLERGIES: Coded Allergies: latex (Verified Allergy, Intermediate, Rash,skin tear off, 08/28/16) ROS Review of System 14 point ROS evaluated with pertinent positives noted per HPI PHYSICAL EXAM General: Alert, Oriented X3, Cooperative, No acute distress HEENT: Atraumatic, Mucous membr. moist/pink Lungs: Clear to auscultation Heart: Regular rate (SR with first degree AV block), Normal S1, Normal S2, Other (3/6 systolic murmur to LLS border) Abdomen: Soft, No tenderness, Other (obese) Extremities: No cyanosis, No edema Skin: No breakdown Neuro: Normal speech, Sensation intact Psych/Mental Status: Mental status NL, Mood NL MUSCULOSKELETAL: Osteoarthritic changes both hands VITALS/I&O VITALS/I&O: Vital Signs Date Time Temp Pulse Resp B/P (MAP) Pulse Ox O2 Delivery O2 Flow Rate FiO2 02/23/19 10:00 81 24 142/78 (99) 95 Room Air 02/23/19 08:00 97.4 97.4 02/23/19 04:00 3.0 I & O 02/22/19 02/22/19 02/23/19 15:00 23:00 07:00 Intake Total 1960 ml 527 ml Output Total 800 ml 0 ml Balance 1160 ml 527 ml LABS Lab: Laboratory Tests Test 02/22/19 16:05 02/22/19 16:54 02/22/19 20:25 02/22/19 23:38 White Blood Count 13.7 x10^3/uL (4.0-11.0) H Red Blood Count 5.25 x10^6/uL (4.30-5.70) Hemoglobin 15.7 g/dL (13.0-17.5) Hematocrit 46.4 % (39.0-53.0) Mean Corpuscular Volume 88 fL (79-100) Mean Corpuscular Hemoglobin 30 pg (25-35) Mean Corpuscular Hemoglobin Concent 34 g/dL (31-37) Red Cell Distribution Width 13.1 % (11.5-14.5) Platelet Count 265 x10^3/uL (140-400) Neutrophils (%) (Auto) 62 % (31-73) Lymphocytes (%) (Auto) 26 % (24-48) Monocytes (%) (Auto) 10 % (0-9) H Eosinophils (%) (Auto) 1 % (0-3) Basophils (%) (Auto) 1 % (0-3) Neutrophils # (Auto) 8.5 x10^3/uL (1.8-7.7) H Lymphocytes # (Auto) 3.6 x10^3/uL (1.0-4.8) Monocytes # (Auto) 1.4 x10^3/uL (0.0-1.1) H Eosinophils # (Auto) 0.2 x10^3/uL (0.0-0.7) Basophils # (Auto) 0.1 x10^3/uL (0.0-0.2) Prothrombin Time 18.1 SEC (11.7-14.0) H Prothrombin Time INR 1.5 (0.8-1.1) H D-Dimer (Nasrin) < 0.27 ug/mlFEU Sodium Level 139 mmol/L (136-145) Potassium Level 3.9 mmol/L (3.5-5.1) Chloride Level 104 mmol/L (98-107) Carbon Dioxide Level 21 mmol/L (21-32) Anion Gap 14 (6-14) Blood Urea Nitrogen 17 mg/dL (8-26) Creatinine 1.1 mg/dL (0.7-1.3) Estimated GFR (Cockcroft-Gault) 68.8 BUN/Creatinine Ratio 15 (6-20) Glucose Level 296 mg/dL (70-99) H Calcium Level 9.2 mg/dL (8.5-10.1) Magnesium Level 1.6 mg/dL (1.8-2.4) L Total Bilirubin 0.9 mg/dL (0.2-1.0) Aspartate Amino Transferase (AST) 19 U/L (15-37) Alanine Aminotransferase (ALT) 21 U/L (16-63) Alkaline Phosphatase 111 U/L (46-116) Creatine Kinase 180 U/L (39-308) Troponin I Quantitative < 0.017 ng/mL (0.000-0.055) 0.162 ng/mL (0.000-0.055) 0.337 ng/mL (0.000-0.055) HX-Yls-X-Type Natriuretic Peptide 1272 pg/mL (0-124) H Total Protein 7.5 g/dL (6.4-8.2) Albumin 4.1 g/dL (3.4-5.0) Albumin/Globulin Ratio 1.2 (1.0-1.7) Lipase 110 U/L (73-393) Glucose (Fingerstick) 303 mg/dL (70-99) H Test 02/23/19 03:40 02/23/19 08:28 Sodium Level 141 mmol/L (136-145) Potassium Level 4.0 mmol/L (3.5-5.1) Chloride Level 106 mmol/L (98-107) Carbon Dioxide Level 25 mmol/L (21-32) Anion Gap 10 (6-14) Blood Urea Nitrogen 15 mg/dL (8-26) Creatinine 0.9 mg/dL (0.7-1.3) Estimated GFR (Cockcroft-Gault) 86.7 Glucose Level 234 mg/dL (70-99) H Calcium Level 8.8 mg/dL (8.5-10.1) Magnesium Level 1.8 mg/dL (1.8-2.4) Triglycerides Level 125 mg/dL (0-150) Cholesterol Level 101 mg/dL (0-200) LDL Cholesterol, Calculated 51 mg/dL (0-100) VLDL Cholesterol, Calculated 25 mg/dL (0-40) Non-HDL Cholesterol Calculated 76 mg/dL (0-129) HDL Cholesterol 25 mg/dL (40-60) L Cholesterol/HDL Ratio 4.0 Glucose (Fingerstick) 215 mg/dL (70-99) H Laboratory Tests 02/22/19 16:05 Laboratory Tests 02/22/19 16:05 02/23/19 03:40 ECHOCARDIOGRAM ECHOCARDIOGRAM <Conclusion> There is mild concentric left ventricular hypertrophy and mild apical dilatation Left ventricle systolic function is moderately impaired. The Ejection Fraction is 35%. There is moderate global hypokinesis of the left ventricle. Unable to assess the left ventricular diastolic function due to atrial fibrillation. The left atrium is moderately dilated. The right atrium is moderately dilated. The aortic valve is not well visualized. Doppler and Color Flow revealed mild mitral regurgitation. Doppler and Color Flow revealed moderate tricuspid regurgitation. The pulmonary artery systolic pressure is estimated at 61 mmHg. There is moderate-severe pulmonary hypertension. The pulmonic valve is not well visualized. There is no evidence of significant pericardial effusion. DATE: 09/12/16 1524 ASSESSMENT/PLAN ASSESSMENT/PLAN 1. Sustained monomorphic VT with syncopal episode: no arrest. Shocked x1 2. Hx of cardiomyopathy: past EF 35%, reported recovered per pt with TTE >1 yr ago 3. PAFIB: presently SR with long first degree AV block 4. HTN: controlled 5. HLP 6. DM2 7. Hypothyroidism 8. Morbid obesity and suspecting IZZY 9. Right upper molar tooth abscess: reported recent. Antibiotics per PCP Recommendations 1. Continue amiodarone drip and will convert to PO at higher dose. 2. LHC tomorrow, risks and benefits discussed agreeable to proceed 3. Will also consider for AICD for secondary prevention for SCD 4. Hold Xarelto. 5. ASA and continue secondary prevention measures. 6. TTE 7. Monitor K and Mg. Check TSH, A1C 8. Will need outpt IZZY workup ALLISON LEWIS MD 02/23/191926: CARDIAC CONSULT ASSESSMENT/PLAN ASSESSMENT/PLAN Pt. seen and examined. 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 58 y.o male with syncope and VT Will plan for ischemic eval in am Depending on findings, if he needs revascularization, plan for PCI and Lifevest with probable upgrade to ICD If no significant disease, plan for ICD. Thanks CHRISTIAN MORROW MICA WASHER GLUER Feb 23, 2019 11:38 ALLISON LEWIS MD Feb 23, 2019 19:27
--- NOTE | 2019-02-23 12:01 | PDOC ---
PROGRESS NOTES Chief Complaint Chief Complaint SVT s/p inhospital cardioversion PErmanent a fib on OAC (eliquis) Obesity Hx CHF (currently compensated), MIld leg edema LEukocytosis, reactive non infectious;\ TRop elevation History of Present Illness History of Present Illness Seen in ICU on amio gtt with freq PVCs Takes OAC for permamnet A fib at home ADAMANT he wants to go home today CArds has yet to see Asymtopatic LAst echo was over a yr ago PLAn: Wait for cards Echo might be in order If adamant to leave and cards has not cleared, might need to sign AMA I will reconcile meds once i have access to it (somebody logged in) 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 Vitals Vital Signs Date Time Temp Pulse Resp B/P (MAP) Pulse Ox O2 Delivery O2 Flow Rate FiO2 02/23/19 11:00 75 11 131/75 (93) 95 Room Air 02/23/19 08:00 97.4 97.4 02/23/19 04:00 3.0 Physical Exam General: Alert, Oriented X3, Cooperative Lungs: Clear Abdomen: Normal bowel sounds, Soft (obese) Extremities: No cyanosis, No edema, Normal pulses Labs LABS Laboratory Tests Test 02/22/19 16:05 02/22/19 16:54 02/22/19 20:25 02/22/19 23:38 White Blood Count 13.7 x10^3/uL (4.0-11.0) Red Blood Count 5.25 x10^6/uL (4.30-5.70) Hemoglobin 15.7 g/dL (13.0-17.5) Hematocrit 46.4 % (39.0-53.0) Mean Corpuscular Volume 88 fL (79-100) Mean Corpuscular Hemoglobin 30 pg (25-35) Mean Corpuscular Hemoglobin Concent 34 g/dL (31-37) Red Cell Distribution Width 13.1 % (11.5-14.5) Platelet Count 265 x10^3/uL (140-400) Neutrophils (%) (Auto) 62 % (31-73) Lymphocytes (%) (Auto) 26 % (24-48) Monocytes (%) (Auto) 10 % (0-9) Eosinophils (%) (Auto) 1 % (0-3) Basophils (%) (Auto) 1 % (0-3) Neutrophils # (Auto) 8.5 x10^3/uL (1.8-7.7) Lymphocytes # (Auto) 3.6 x10^3/uL (1.0-4.8) Monocytes # (Auto) 1.4 x10^3/uL (0.0-1.1) Eosinophils # (Auto) 0.2 x10^3/uL (0.0-0.7) Basophils # (Auto) 0.1 x10^3/uL (0.0-0.2) Prothrombin Time 18.1 SEC (11.7-14.0) Prothromb Time International Ratio 1.5 (0.8-1.1) D-Dimer (Nasrin) < 0.27 ug/mlFEU Sodium Level 139 mmol/L (136-145) Potassium Level 3.9 mmol/L (3.5-5.1) Chloride Level 104 mmol/L (98-107) Carbon Dioxide Level 21 mmol/L (21-32) Anion Gap 14 (6-14) Blood Urea Nitrogen 17 mg/dL (8-26) Creatinine 1.1 mg/dL (0.7-1.3) Estimated GFR (Cockcroft-Gault) 68.8 BUN/Creatinine Ratio 15 (6-20) Glucose Level 296 mg/dL (70-99) Calcium Level 9.2 mg/dL (8.5-10.1) Magnesium Level 1.6 mg/dL (1.8-2.4) Total Bilirubin 0.9 mg/dL (0.2-1.0) Aspartate Amino Transf (AST/SGOT) 19 U/L (15-37) Alanine Aminotransferase (ALT/SGPT) 21 U/L (16-63) Alkaline Phosphatase 111 U/L (46-116) Creatine Kinase 180 U/L (39-308) Troponin I Quantitative < 0.017 ng/mL (0.000-0.055) 0.162 ng/mL (0.000-0.055) 0.337 ng/mL (0.000-0.055) QB-Exs-Q-Type Natriuretic Peptide 1272 pg/mL (0-124) Total Protein 7.5 g/dL (6.4-8.2) Albumin 4.1 g/dL (3.4-5.0) Albumin/Globulin Ratio 1.2 (1.0-1.7) Lipase 110 U/L (73-393) Glucose (Fingerstick) 303 mg/dL (70-99) Test 02/23/19 03:40 02/23/19 08:28 Sodium Level 141 mmol/L (136-145) Potassium Level 4.0 mmol/L (3.5-5.1) Chloride Level 106 mmol/L (98-107) Carbon Dioxide Level 25 mmol/L (21-32) Anion Gap 10 (6-14) Blood Urea Nitrogen 15 mg/dL (8-26) Creatinine 0.9 mg/dL (0.7-1.3) Estimated GFR (Cockcroft-Gault) 86.7 Glucose Level 234 mg/dL (70-99) Calcium Level 8.8 mg/dL (8.5-10.1) Magnesium Level 1.8 mg/dL (1.8-2.4) Triglycerides Level 125 mg/dL (0-150) Cholesterol Level 101 mg/dL (0-200) LDL Cholesterol, Calculated 51 mg/dL (0-100) VLDL Cholesterol, Calculated 25 mg/dL (0-40) Non-HDL Cholesterol Calculated 76 mg/dL (0-129) HDL Cholesterol 25 mg/dL (40-60) Cholesterol/HDL Ratio 4.0 Glucose (Fingerstick) 215 mg/dL (70-99) Review of Systems Review of Systems no cp, soa, no abd pain, lightheadedness, n.,v,d Assessment and Plan Assessmemt and Plan Problems Medical Problems: (1) Chest pain Status: Acute (2) Syncope Status: Acute (3) Uncontrolled diabetes mellitus Status: Acute (4) Ventricular tachycardia Status: Acute Comment Review of Relevant I have reviewed the following items kendra (where applicable) has been applied. Labs Laboratory Tests Test 02/22/19 16:05 02/22/19 16:54 02/22/19 20:25 02/22/19 23:38 White Blood Count 13.7 x10^3/uL (4.0-11.0) Red Blood Count 5.25 x10^6/uL (4.30-5.70) Hemoglobin 15.7 g/dL (13.0-17.5) Hematocrit 46.4 % (39.0-53.0) Mean Corpuscular Volume 88 fL (79-100) Mean Corpuscular Hemoglobin 30 pg (25-35) Mean Corpuscular Hemoglobin Concent 34 g/dL (31-37) Red Cell Distribution Width 13.1 % (11.5-14.5) Platelet Count 265 x10^3/uL (140-400) Neutrophils (%) (Auto) 62 % (31-73) Lymphocytes (%) (Auto) 26 % (24-48) Monocytes (%) (Auto) 10 % (0-9) Eosinophils (%) (Auto) 1 % (0-3) Basophils (%) (Auto) 1 % (0-3) Neutrophils # (Auto) 8.5 x10^3/uL (1.8-7.7) Lymphocytes # (Auto) 3.6 x10^3/uL (1.0-4.8) Monocytes # (Auto) 1.4 x10^3/uL (0.0-1.1) Eosinophils # (Auto) 0.2 x10^3/uL (0.0-0.7) Basophils # (Auto) 0.1 x10^3/uL (0.0-0.2) Prothrombin Time 18.1 SEC (11.7-14.0) Prothromb Time International Ratio 1.5 (0.8-1.1) D-Dimer (Nasrin) < 0.27 ug/mlFEU Sodium Level 139 mmol/L (136-145) Potassium Level 3.9 mmol/L (3.5-5.1) Chloride Level 104 mmol/L (98-107) Carbon Dioxide Level 21 mmol/L (21-32) Anion Gap 14 (6-14) Blood Urea Nitrogen 17 mg/dL (8-26) Creatinine 1.1 mg/dL (0.7-1.3) Estimated GFR (Cockcroft-Gault) 68.8 BUN/Creatinine Ratio 15 (6-20) Glucose Level 296 mg/dL (70-99) Calcium Level 9.2 mg/dL (8.5-10.1) Magnesium Level 1.6 mg/dL (1.8-2.4) Total Bilirubin 0.9 mg/dL (0.2-1.0) Aspartate Amino Transf (AST/SGOT) 19 U/L (15-37) Alanine Aminotransferase (ALT/SGPT) 21 U/L (16-63) Alkaline Phosphatase 111 U/L (46-116) Creatine Kinase 180 U/L (39-308) Troponin I Quantitative < 0.017 ng/mL (0.000-0.055) 0.162 ng/mL (0.000-0.055) 0.337 ng/mL (0.000-0.055) FZ-Hsg-N-Type Natriuretic Peptide 1272 pg/mL (0-124) Total Protein 7.5 g/dL (6.4-8.2) Albumin 4.1 g/dL (3.4-5.0) Albumin/Globulin Ratio 1.2 (1.0-1.7) Lipase 110 U/L (73-393) Glucose (Fingerstick) 303 mg/dL (70-99) Test 02/23/19 03:40 02/23/19 08:28 Sodium Level 141 mmol/L (136-145) Potassium Level 4.0 mmol/L (3.5-5.1) Chloride Level 106 mmol/L (98-107) Carbon Dioxide Level 25 mmol/L (21-32) Anion Gap 10 (6-14) Blood Urea Nitrogen 15 mg/dL (8-26) Creatinine 0.9 mg/dL (0.7-1.3) Estimated GFR (Cockcroft-Gault) 86.7 Glucose Level 234 mg/dL (70-99) Calcium Level 8.8 mg/dL (8.5-10.1) Magnesium Level 1.8 mg/dL (1.8-2.4) Triglycerides Level 125 mg/dL (0-150) Cholesterol Level 101 mg/dL (0-200) LDL Cholesterol, Calculated 51 mg/dL (0-100) VLDL Cholesterol, Calculated 25 mg/dL (0-40) Non-HDL Cholesterol Calculated 76 mg/dL (0-129) HDL Cholesterol 25 mg/dL (40-60) Cholesterol/HDL Ratio 4.0 Glucose (Fingerstick) 215 mg/dL (70-99) Laboratory Tests Test 02/22/19 16:05 02/22/19 16:54 02/22/19 20:25 02/22/19 23:38 White Blood Count 13.7 x10^3/uL (4.0-11.0) Red Blood Count 5.25 x10^6/uL (4.30-5.70) Hemoglobin 15.7 g/dL (13.0-17.5) Hematocrit 46.4 % (39.0-53.0) Mean Corpuscular Volume 88 fL (79-100) Mean Corpuscular Hemoglobin 30 pg (25-35) Mean Corpuscular Hemoglobin Concent 34 g/dL (31-37) Red Cell Distribution Width 13.1 % (11.5-14.5) Platelet Count 265 x10^3/uL (140-400) Neutrophils (%) (Auto) 62 % (31-73) Lymphocytes (%) (Auto) 26 % (24-48) Monocytes (%) (Auto) 10 % (0-9) Eosinophils (%) (Auto) 1 % (0-3) Basophils (%) (Auto) 1 % (0-3) Neutrophils # (Auto) 8.5 x10^3/uL (1.8-7.7) Lymphocytes # (Auto) 3.6 x10^3/uL (1.0-4.8) Monocytes # (Auto) 1.4 x10^3/uL (0.0-1.1) Eosinophils # (Auto) 0.2 x10^3/uL (0.0-0.7) Basophils # (Auto) 0.1 x10^3/uL (0.0-0.2) Prothrombin Time 18.1 SEC (11.7-14.0) Prothromb Time International Ratio 1.5 (0.8-1.1) D-Dimer (Nasrin) < 0.27 ug/mlFEU Sodium Level 139 mmol/L (136-145) Potassium Level 3.9 mmol/L (3.5-5.1) Chloride Level 104 mmol/L (98-107) Carbon Dioxide Level 21 mmol/L (21-32) Anion Gap 14 (6-14) Blood Urea Nitrogen 17 mg/dL (8-26) Creatinine 1.1 mg/dL (0.7-1.3) Estimated GFR (Cockcroft-Gault) 68.8 BUN/Creatinine Ratio 15 (6-20) Glucose Level 296 mg/dL (70-99) Calcium Level 9.2 mg/dL (8.5-10.1) Magnesium Level 1.6 mg/dL (1.8-2.4) Total Bilirubin 0.9 mg/dL (0.2-1.0) Aspartate Amino Transf (AST/SGOT) 19 U/L (15-37) Alanine Aminotransferase (ALT/SGPT) 21 U/L (16-63) Alkaline Phosphatase 111 U/L (46-116) Creatine Kinase 180 U/L (39-308) Troponin I Quantitative < 0.017 ng/mL (0.000-0.055) 0.162 ng/mL (0.000-0.055) 0.337 ng/mL (0.000-0.055) QF-Yfo-T-Type Natriuretic Peptide 1272 pg/mL (0-124) Total Protein 7.5 g/dL (6.4-8.2) Albumin 4.1 g/dL (3.4-5.0) Albumin/Globulin Ratio 1.2 (1.0-1.7) Lipase 110 U/L (73-393) Glucose (Fingerstick) 303 mg/dL (70-99) Test 02/23/19 03:40 02/23/19 08:28 Sodium Level 141 mmol/L (136-145) Potassium Level 4.0 mmol/L (3.5-5.1) Chloride Level 106 mmol/L (98-107) Carbon Dioxide Level 25 mmol/L (21-32) Anion Gap 10 (6-14) Blood Urea Nitrogen 15 mg/dL (8-26) Creatinine 0.9 mg/dL (0.7-1.3) Estimated GFR (Cockcroft-Gault) 86.7 Glucose Level 234 mg/dL (70-99) Calcium Level 8.8 mg/dL (8.5-10.1) Magnesium Level 1.8 mg/dL (1.8-2.4) Triglycerides Level 125 mg/dL (0-150) Cholesterol Level 101 mg/dL (0-200) LDL Cholesterol, Calculated 51 mg/dL (0-100) VLDL Cholesterol, Calculated 25 mg/dL (0-40) Non-HDL Cholesterol Calculated 76 mg/dL (0-129) HDL Cholesterol 25 mg/dL (40-60) Cholesterol/HDL Ratio 4.0 Glucose (Fingerstick) 215 mg/dL (70-99) Medications Current Medications Diltiazem HCl (Cardizem Iv Push) 20 mg 1X ONCE IVP Last administered on 02/22/19at 16:29; Start 02/22/19 at 15:45; Stop 02/22/19 at 19:18; Status DC Diltiazem HCl 125 mg/Dextrose 125 ml @ 10 mls/hr 1X ONCE IV ; Start 02/22/19 at 15:45; Stop 02/22/19 at 19:18; Status DC Amiodarone HCl 900 mg/Dextrose 518 ml @ 0 mls/hr CONT PRN IV SEE I/O RECORD Last administered on 02/22/19at 16:43; Start 02/22/19 at 16:30; Stop 02/22/19 at 16:43; Status DC Amiodarone HCl 150 mg/Dextrose 103 ml @ 618 mls/hr 1X ONCE IV Last administered on 02/22/19at 16:35; Start 02/22/19 at 16:15; Stop 02/22/19 at 19:18; Status DC Fentanyl Citrate (Fentanyl 2ml Vial) 50 mcg 1X ONCE IV Last administered on 02/22/19at 16:44; Start 02/22/19 at 17:00; Stop 02/22/19 at 19:18; Status DC Midazolam HCl (Versed) 5 mg 1X ONCE NS Last administered on 02/22/19at 17:41; Start 02/22/19 at 17:00; Stop 02/22/19 at 19:18; Status DC Sodium Chloride 1,000 ml @ 125 mls/hr 1X ONCE IV Last administered on 02/22/19at 17:42; Start 02/22/19 at 17:00; Stop 02/23/19 at 00:59; Status DC Midazolam HCl (Versed) 5 mg STK-MED ONCE .ROUTE ; Start 02/22/19 at 16:54; Stop 02/22/19 at 16:54; Status DC Amiodarone HCl 900 mg/Dextrose 518 ml @ 17 mls/hr CONT PRN IV SEE I/O RECORD Last administered on 02/22/19at 19:31; Start 02/23/19 at 17:00 Carvedilol (Coreg) 3.125 mg BIDWMEALS PO ; Start 02/22/19 at 19:30 Furosemide (Lasix) 10 mg DAILY PO ; Start 02/23/19 at 09:00 Lisinopril (Prinivil) 20 mg QEVNG PO ; Start 02/22/19 at 19:30 Rivaroxaban (Xarelto) 10 mg BID PO ; Start 02/23/19 at 09:00; Stop 02/22/19 at 23:17; Status DC Zolpidem Tartrate (Ambien) 5 mg PRN QHS PRN PO INSOMNIA Last administered on 02/22/19at 22:23; Start 02/22/19 at 19:45 Docusate Sodium (Colace) 100 mg PRN DAILY PRN PO CONSTIPATION; Start 02/22/19 at 19:45 Cetirizine HCl (ZyrTEC) 10 mg DAILY PO Last administered on 02/23/19at 10:05; Start 02/22/19 at 22:15 Insulin Human Lispro (HumaLOG) 0-7 UNITS TIDWMEALS SQ Last administered on 02/23/19at 08:30; Start 02/23/19 at 08:00 Dextrose (Dextrose 50%-Water Syringe) 12.5 gm PRN Q15MIN PRN IV SEE COMMENTS; Start 02/22/19 at 22:00 Dextrose 250 ml PRN Q15MIN PRN IV SEE COMMENTS; Start 02/22/19 at 22:00 Active Scripts Active Reported Gabapentin 600 Mg Tablet 600 Mg PO DAILY Lisinopril 20 Mg Tablet 1 Tab PO DAILY Metoprolol ER-Hctz 25-12.5 mg (Metoprolol Succinate/Hctz) 1 Each Tab.er.24h 1 Each PO DAILY Xarelto (Rivaroxaban) 20 Mg Tablet 20 Mg PO DAILY Glimepiride 4 Mg Tablet 1 Tab PO DAILY Atorvastatin Calcium 80 Mg Tablet 1 Tab PO DAILY Escitalopram Oxalate 10 Mg Tablet 1 Tab PO DAILY Levothyroxine Sodium 75 Mcg Tablet 1 Tab PO DAILY Lisinopril 20 Mg Tablet 1 Tab PO QEVNG Metformin Hcl 500 Mg Tablet 500 Mg PO BIDWMEALS Vitals/I & O Vital Sign - Last 24 Hours 02/22/19 02/22/19 02/22/19 02/22/19 15:33 16:15 16:29 16:30 Temp 98.3 98.3 Pulse 203 200 203 194 Resp 22 24 24 B/P (MAP) 166/102 (123) 107/55 (72) 166/102 108/65 (79) Pulse Ox 94 98 95 O2 Delivery Room Air Nasal Cannula Nasal Cannula O2 Flow Rate 3.0 3.0 02/22/19 02/22/19 02/22/19 02/22/19 16:35 16:44 16:45 17:00 Pulse 203 Resp 18 24 22 B/P (MAP) 107/55 78/48 (58) 84/60 (68) Pulse Ox 3 95 98 O2 Delivery Nasal Cannula Nasal Cannula Nasal Cannula O2 Flow Rate 3.0 3.0 02/22/19 02/22/19 02/22/19 02/22/19 17:05 17:10 17:15 17:15 Pulse 196 196 70 Resp 22 22 22 B/P (MAP) 89/52 (64) 88/68 (75) 96/61 (73) Pulse Ox 97 O2 Delivery Nasal Cannula Nasal Cannula Nasal Cannula O2 Flow Rate 3.0 3.0 3.0 02/22/19 02/22/19 02/22/19 02/22/19 17:20 17:25 17:30 17:30 Pulse 66 72 66 Resp 20 20 20 B/P (MAP) 99/66 (77) 97/58 (71) 97/58 (71) Pulse Ox 97 97 97 O2 Delivery Nasal Cannula Nasal Cannula Nasal Cannula O2 Flow Rate 3.0 3.0 3.0 02/22/19 02/22/19 02/22/19 02/22/19 17:45 17:45 18:00 18:00 Pulse 66 74 Resp 20 20 B/P (MAP) 93/62 (72) 93/57 (69) Pulse Ox 99 97 O2 Delivery Nasal Cannula Nasal Cannula O2 Flow Rate 3.0 3.0 02/22/19 02/22/19 02/22/19 02/22/19 18:42 19:00 19:00 19:02 Temp 97.5 97.5 Pulse 67 64 Resp 22 20 20 B/P (MAP) 106/67 (80) 117/78 (91) Pulse Ox 100 98 O2 Delivery Nasal Cannula Room Air O2 Flow Rate 3.0 02/22/19 02/22/19 02/22/19 02/22/19 19:15 19:15 19:30 19:30 Pulse 64 64 Resp 20 18 B/P (MAP) 115/73 (87) 119/81 (94) Pulse Ox 99 97 O2 Delivery Room Air Room Air 802/22/19 02/22/19 02/22/19 19:33 19:33 19:45 19:45 Pulse 98 98 64 Resp 18 B/P (MAP) 107/75 (86) Pulse Ox 95 O2 Delivery Room Air 02/22/19 02/22/19 02/22/19 02/22/19 20:00 20:00 20:00 20:30 Temp 97.6 97.6 Pulse 66 68 Resp 18 18 B/P (MAP) 112/70 (84) 104/69 (81) Pulse Ox 94 O2 Delivery Room Air Room Air Room Air 02/22/19 02/22/19 02/22/19 02/22/19 20:30 21:00 21:00 22:00 Pulse 74 68 Resp 18 18 B/P (MAP) 110/71 (84) 133/79 (97) Pulse Ox 96 97 96 O2 Delivery Room Air Room Air 02/22/19 02/23/19 02/23/19 02/23/19 23:00 00:00 00:00 01:00 Temp 97.2 97.2 Pulse 66 68 68 Resp 18 18 18 B/P (MAP) 128/82 (97) 122/74 (90) 120/77 (91) Pulse Ox 97 96 96 O2 Delivery Room Air Room Air Room Air Room Air O2 Flow Rate 3.0 02/23/19 02/23/19 02/23/19 02/23/19 02:00 03:00 04:00 04:00 Temp 97.5 97.5 Pulse 69 65 79 Resp 16 18 18 B/P (MAP) 133/86 (102) 133/91 (105) 149/83 (105) Pulse Ox 96 95 95 O2 Delivery Room Air Room Air Room Air Room Air O2 Flow Rate 3.0 02/23/19 02/23/19 02/23/19 02/23/19 05:00 06:00 07:00 08:00 Pulse 64 67 69 Resp 20 18 17 B/P (MAP) 127/94 (105) 142/91 (108) 133/83 (100) Pulse Ox 95 95 94 O2 Delivery Room Air Room Air Room Air Room Air 02/23/19 02/23/19 02/23/19 02/23/19 08:00 09:00 10:00 11:00 Temp 97.4 97.4 Pulse 70 74 81 75 Resp 21 24 24 11 B/P (MAP) 116/72 (87) 144/80 (101) 142/78 (99) 131/75 (93) Pulse Ox 92 94 95 95 O2 Delivery Room Air Room Air Room Air Room Air Intake and Output 02/22/19 02/22/19 02/23/19 15:00 23:00 07:00 Intake Total 1960 ml 527 ml Output Total 800 ml 0 ml Balance 1160 ml 527 ml CHITRA PAPPAS MD Feb 23, 2019 12:00
[2019-02-23] MEDS: ASPIRIN ENTERIC COATED 81 MG TABLET.DR. PO SCH (12:08)
[2019-02-23] MEDS ORDERED: DEXTROSE 50% 25 GM / 50ML DISP.SYRIN. IV PRN (12:15)
[2019-02-23] MEDS ORDERED: IV DEXTROSE 5% 250 ML BAG. IV PRN (12:15)
[2019-02-23] MEDS ORDERED: PERFLUTREN PROTEIN-A MICROSPHR 0.22 MG/ML 3 ML VIAL. IV ONE (13:00)
[2019-02-23] MEDS: GLIMEPIRIDE 2 MG TABLET. PO SCH (13:00)
--- NOTE | 2019-02-23 13:03 | NUR ---
SS following for discharge planning. SS reviewed pt chart. Pt is from home and is currently on room air. No discharge needs noted at this time. SS will continue to follow for discharge planning.
[2019-02-23 13:23] LABS: FREE T4 0.98 ng/dL (0.76-1.46)
--- NOTE | 2019-02-23 13:53 | CARD ---
MR#: [id number] Date of Study: 02/23/2019 Ordering Physician: BOBO VILLALTA, Referring Physician: BOBO VILALLTA, Tech: Isaura Connell [facility] APPROVED REPORT EXAM: Two-dimensional and M-mode echocardiogram with Doppler, color Doppler with contrast. Other Information Quality : Technically LimitedHR: 84bpm Rhythm : NSRTechnically limited study due to body habitus. INDICATION Arrhythmia Echo Enhancing Agent Indication: Endocardial border delineation Agent/Amount Used: Optison 1mL 2D DIMENSIONS RVDd5.8 (2.9-3.5cm)Left Atrium(2D)5.9 (1.6-4.0cm) IVSd1.2 (0.7-1.1cm)Aortic Root(2D)3.5 (2.0-3.7cm) LVDd5.8 (3.9-5.9cm)LVOT Diameter2.3 (1.8-2.4cm) PWd1.3 (0.7-1.1cm)LVDs4.3 (2.5-4.0cm) FS (%) 25.4 %SV83.0 ml LVEF(%)49.3 (>50%) M-Mode DIMENSIONS Left Atrium(MM)5.58 (2.5-4.0cm)Aortic Root3.58 (2.2-3.7cm) Aortic Valve AoV Peak Justin.115.0cm/sAoV VTI19.9cm AO Peak GR.5.3mmHgLVOT VTI 13.07cm AO Mean GR.3mmHgAVA (VMAX)2.60cm2 RADHA (VTI)2.60cm2 Mitral Valve MV E Lfafnhqd36.9cm/sMV E Peak Gr.71mmHg MV DECEL [id number] A Irogbhbw21.4cm/s E/A Ratio1.4MV A Cvhsbepk41bv TDI Lateral E' P. V17.25cm/sMedial E' P. V10.30cm/s E/Lateral E'1.2E/Medial E'2.0 Tricuspid Valve TR P. Jzvgreua865zr/sRAP QCLFPMGY08leBv TR Peak Gr.28owVoJTYY07gyHk LEFT VENTRICLE The Left Ventricle is borderline dilated. There is mild to moderate concentric left ventricular hyper trophy. Left ventricle systolic function is mildly decreased. EF 45% There is mild global hypokinesis . Transmitral Doppler flow pattern is Grade II-pseudonormal filling dynamics. RIGHT VENTRICLE The right ventricle is moderately dilated. There is normal right ventricular wall thickness. RV Systo lic function is mildly reduced. ATRIA The left atrium is moderately dilated. The right atrium is severely dilated. The interatrial septum i s intact with no evidence for an atrial septal defect or patent foramen ovale as noted on 2-D or Dopp ler imaging. AORTIC VALVE The aortic valve is normal in structure and function. The aortic valve is trileaflet. Doppler and Col or Flow revealed no significant aortic regurgitation. There is no significant aortic valvular stenosi s. MITRAL VALVE The mitral valve is thickened but opens well. There is no evidence of mitral valve prolapse. There is no mitral valve stenosis. Doppler and Color-flow revealed mild to moderate mitral regurgitation. TRICUSPID VALVE The tricuspid valve is normal in structure and function. Doppler and Color Flow revealed mild tricusp id regurgitation. The PA pressure was estimated at 61 mm Hg. There is moderate pulmonary hypertension . There is no tricuspid valve prolapse or vegetation. There is no tricuspid valve stenosis. PULMONIC VALVE The pulmonic valve is not well visualized. GREAT VESSELS The aortic root is normal in size. The ascending aorta is normal in size. The IVC is dilated and ceferino apses <50% with inspiration. PERICARDIAL EFFUSION There is no evidence of significant pericardial effusion. Critical Notification Critical Value: No <Conclusion> Left ventricle systolic function is mildly decreased. EF 45% There is mild global hypokinesis. The right ventricle is moderately dilated. RV Systolic function is mildly reduced. Doppler and Color-flow revealed mild to moderate mitral regurgitation. Doppler and Color Flow revealed mild tricuspid regurgitation. The PA pressure was estimated at 61 mm Hg. There is moderate pulmonary hypertension. Signed by : Alex Newberry, Electronically Approved : 02/23/2019 13:52:32
[2019-02-23] MEDS: LEVOTHYROXINE 75 MCG TABLET PO SCH (14:19)
[2019-02-23] MEDS: GABAPENTIN 300 MG CAPSULE. PO SCH (14:21)
[2019-02-23] MEDS: CITALOPRAM 20 MG TABLET. PO SCH (14:56)
[2019-02-23] MEDS ORDERED: AMIODARONE 900 MG in IV DEXTROSE 5% 500 ML IV PRN ×2 (17:00→17:15)
[2019-02-23] MEDS: metFORMIN 500 MG TABLET PO SCH (17:23)
[2019-02-23] MEDS: LISINOPRIL 20 MG TABLET PO SCH (17:28)
[2019-02-23] MEDS ORDERED: AMIODARONE 450 MG in IV DEXTROSE 5% 250 ML IV PRN (19:15)
[2019-02-23] MEDS: ZOLPIDEM 5 MG TABLET. PO PRN (21:19)
[2019-02-23] MEDS: AMIODARONE HCL 200 MG TABLET. PO SCH (21:28)
--- NOTE | 2019-02-23 21:28 | NUR ---
Order for Amiodarone PO on chart, Patient on Amiodarone drip. Clarified with Benita(paper stripper) if both to be given or need to call Music Department Chair. Benita verified order and Amiodarone to be given per Benita. Amiodarone Po given see EMAR.
[2019-02-24] VITALS (21 sets, daily range): BP systolic 101–148; BP diastolic 65–96
[2019-02-24 04:09] LABS: HEMOGLOBIN A1C 10.6 % (4.8-5.6)
[2019-02-24 04:47] LABS: CALCIUM 8.7 mg/dL (8.5-10.1); CREATININE 0.9 mg/dL (0.7-1.3); GFR 86.7; MAGNESIUM 1.8 mg/dL (1.8-2.4)
[2019-02-24] MEDS: LEVOTHYROXINE 75 MCG TABLET PO SCH (06:22)
[2019-02-24] MEDS: metFORMIN 500 MG TABLET PO SCH (08:00)
[2019-02-24] MEDS: ASPIRIN ENTERIC COATED 81 MG TABLET.DR. PO SCH (08:46)
[2019-02-24] MEDS: METOPROLOL SUCC 24HR ER 25 MG TAB.ER.24H. PO SCH (08:46)
[2019-02-24] MEDS: AMIODARONE HCL 200 MG TABLET. PO SCH (08:46)
[2019-02-24] MEDS: CITALOPRAM 20 MG TABLET. PO SCH (08:47)
[2019-02-24] MEDS: GLIMEPIRIDE 2 MG TABLET. PO SCH (08:47)
[2019-02-24] MEDS: GABAPENTIN 300 MG CAPSULE. PO SCH (08:47)
[2019-02-24] MEDS: hydroCHLOROthiazide 12.5 MG CAPSULE PO SCH (08:47)
[2019-02-24] MEDS: INSULIN LISPRO 300 UNITS/3 ML VIAL. SQ SCH ×3 (08:49→17:11)
[2019-02-24] MEDS ORDERED: LISINOPRIL 20 MG TABLET PO SCH (09:00)
--- NOTE | 2019-02-24 09:31 | PDOC ---
PROGRESS NOTES Chief Complaint Chief Complaint SVT s/p inhospital cardioversion PErmanent a fib on OAC (eliquis) Obesity Hx CHF (currently compensated), MIld leg edema LEukocytosis, reactive non infectious;\ TRop elevation History of Present Illness History of Present Illness Seen in ICU /s.p amio gtt Planend for [facility] today, has been NPO Takes OAC for permamnet A fib at home echo: EF 45%, <Conclusion> Left ventricle systolic function is mildly decreased. EF 45% There is mild global hypokinesis. The right ventricle is moderately dilated. RV Systolic function is mildly reduced. Doppler and Color-flow revealed mild to moderate mitral regurgitation. Doppler and Color Flow revealed mild tricuspid regurgitation. The PA pressure was estimated at 61 mm Hg. There is moderate pulmonary hypertension. 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 Vitals Vital Signs Date Time Temp Pulse Resp B/P (MAP) Pulse Ox O2 Delivery O2 Flow Rate FiO2 02/24/19 09:02 73 27 137/91 (106) 94 Room Air 02/24/19 08:00 98.2 98.2 Physical Exam General: Alert, Oriented X3, Cooperative, No acute distress Heart: Regular rate (SR with first degree AV block), Normal S1, Normal S2, Other (3/6 systolic murmur to LLS border) Lungs: Clear Abdomen: Soft, No tenderness, Other (obese) Extremities: No cyanosis, No edema Skin: No breakdown Labs LABS Laboratory Tests Test 02/23/19 12:00 02/23/19 17:17 02/24/19 03:55 Glucose (Fingerstick) 274 mg/dL (70-99) 178 mg/dL (70-99) Sodium Level 140 mmol/L (136-145) Potassium Level 4.0 mmol/L (3.5-5.1) Chloride Level 105 mmol/L (98-107) Carbon Dioxide Level 25 mmol/L (21-32) Anion Gap 10 (6-14) Blood Urea Nitrogen 11 mg/dL (8-26) Creatinine 0.9 mg/dL (0.7-1.3) Estimated GFR (Cockcroft-Gault) 86.7 Glucose Level 209 mg/dL (70-99) Calcium Level 8.7 mg/dL (8.5-10.1) Magnesium Level 1.8 mg/dL (1.8-2.4) Review of Systems Review of Systems no cp, no soa, no abd pain, n.f.d.vomiting,no depression, no abd pain Assessment and Plan Assessmemt and Plan Problems Medical Problems: (1) Chest pain Status: Acute (2) HTN (hypertension) Status: Chronic (3) Hypothyroidism Status: Chronic (4) Morbid obesity Status: Chronic (5) Paroxysmal A-fib Status: Acute (6) Syncope Status: Acute (7) Uncontrolled diabetes mellitus Status: Acute (8) Ventricular tachycardia Status: Acute Comment Review of Relevant I have reviewed the following items kendra (where applicable) has been applied. Labs Laboratory Tests Test 02/22/19 16:05 02/22/19 16:54 02/22/19 20:25 02/22/19 23:38 White Blood Count 13.7 x10^3/uL (4.0-11.0) Red Blood Count 5.25 x10^6/uL (4.30-5.70) Hemoglobin 15.7 g/dL (13.0-17.5) Hematocrit 46.4 % (39.0-53.0) Mean Corpuscular Volume 88 fL (79-100) Mean Corpuscular Hemoglobin 30 pg (25-35) Mean Corpuscular Hemoglobin Concent 34 g/dL (31-37) Red Cell Distribution Width 13.1 % (11.5-14.5) Platelet Count 265 x10^3/uL (140-400) Neutrophils (%) (Auto) 62 % (31-73) Lymphocytes (%) (Auto) 26 % (24-48) Monocytes (%) (Auto) 10 % (0-9) Eosinophils (%) (Auto) 1 % (0-3) Basophils (%) (Auto) 1 % (0-3) Neutrophils # (Auto) 8.5 x10^3/uL (1.8-7.7) Lymphocytes # (Auto) 3.6 x10^3/uL (1.0-4.8) Monocytes # (Auto) 1.4 x10^3/uL (0.0-1.1) Eosinophils # (Auto) 0.2 x10^3/uL (0.0-0.7) Basophils # (Auto) 0.1 x10^3/uL (0.0-0.2) Prothrombin Time 18.1 SEC (11.7-14.0) Prothromb Time International Ratio 1.5 (0.8-1.1) D-Dimer (Nasrin) < 0.27 ug/mlFEU Sodium Level 139 mmol/L (136-145) Potassium Level 3.9 mmol/L (3.5-5.1) Chloride Level 104 mmol/L (98-107) Carbon Dioxide Level 21 mmol/L (21-32) Anion Gap 14 (6-14) Blood Urea Nitrogen 17 mg/dL (8-26) Creatinine 1.1 mg/dL (0.7-1.3) Estimated GFR (Cockcroft-Gault) 68.8 BUN/Creatinine Ratio 15 (6-20) Glucose Level 296 mg/dL (70-99) Calcium Level 9.2 mg/dL (8.5-10.1) Magnesium Level 1.6 mg/dL (1.8-2.4) Total Bilirubin 0.9 mg/dL (0.2-1.0) Aspartate Amino Transf (AST/SGOT) 19 U/L (15-37) Alanine Aminotransferase (ALT/SGPT) 21 U/L (16-63) Alkaline Phosphatase 111 U/L (46-116) Creatine Kinase 180 U/L (39-308) Troponin I Quantitative < 0.017 ng/mL (0.000-0.055) 0.162 ng/mL (0.000-0.055) 0.337 ng/mL (0.000-0.055) TF-Olu-N-Type Natriuretic Peptide 1272 pg/mL (0-124) Total Protein 7.5 g/dL (6.4-8.2) Albumin 4.1 g/dL (3.4-5.0) Albumin/Globulin Ratio 1.2 (1.0-1.7) Lipase 110 U/L (73-393) Glucose (Fingerstick) 303 mg/dL (70-99) Test 02/23/19 03:40 02/23/19 08:28 02/23/19 12:00 02/23/19 17:17 Sodium Level 141 mmol/L (136-145) Potassium Level 4.0 mmol/L (3.5-5.1) Chloride Level 106 mmol/L (98-107) Carbon Dioxide Level 25 mmol/L (21-32) Anion Gap 10 (6-14) Blood Urea Nitrogen 15 mg/dL (8-26) Creatinine 0.9 mg/dL (0.7-1.3) Estimated GFR (Cockcroft-Gault) 86.7 Glucose Level 234 mg/dL (70-99) Hemoglobin A1c 10.6 % (4.8-5.6) Calcium Level 8.8 mg/dL (8.5-10.1) Magnesium Level 1.8 mg/dL (1.8-2.4) Triglycerides Level 125 mg/dL (0-150) Cholesterol Level 101 mg/dL (0-200) LDL Cholesterol, Calculated 51 mg/dL (0-100) VLDL Cholesterol, Calculated 25 mg/dL (0-40) Non-HDL Cholesterol Calculated 76 mg/dL (0-129) HDL Cholesterol 25 mg/dL (40-60) Cholesterol/HDL Ratio 4.0 Thyroid Stimulating Hormone (TSH) 1.532 uIU/mL (0.358-3.74) Free Thyroxine 0.98 ng/dL (0.76-1.46) Free Triiodothyronine (T3) pg/mL 2.27 pg/mL (2.18-3.98) Glucose (Fingerstick) 215 mg/dL (70-99) 274 mg/dL (70-99) 178 mg/dL (70-99) Test 02/24/19 03:55 Sodium Level 140 mmol/L (136-145) Potassium Level 4.0 mmol/L (3.5-5.1) Chloride Level 105 mmol/L (98-107) Carbon Dioxide Level 25 mmol/L (21-32) Anion Gap 10 (6-14) Blood Urea Nitrogen 11 mg/dL (8-26) Creatinine 0.9 mg/dL (0.7-1.3) Estimated GFR (Cockcroft-Gault) 86.7 Glucose Level 209 mg/dL (70-99) Calcium Level 8.7 mg/dL (8.5-10.1) Magnesium Level 1.8 mg/dL (1.8-2.4) Laboratory Tests Test 02/23/19 12:00 02/23/19 17:17 02/24/19 03:55 Glucose (Fingerstick) 274 mg/dL (70-99) 178 mg/dL (70-99) Sodium Level 140 mmol/L (136-145) Potassium Level 4.0 mmol/L (3.5-5.1) Chloride Level 105 mmol/L (98-107) Carbon Dioxide Level 25 mmol/L (21-32) Anion Gap 10 (6-14) Blood Urea Nitrogen 11 mg/dL (8-26) Creatinine 0.9 mg/dL (0.7-1.3) Estimated GFR (Cockcroft-Gault) 86.7 Glucose Level 209 mg/dL (70-99) Calcium Level 8.7 mg/dL (8.5-10.1) Magnesium Level 1.8 mg/dL (1.8-2.4) Medications Current Medications Diltiazem HCl (Cardizem Iv Push) 20 mg 1X ONCE IVP Last administered on 02/22/19at 16:29; Start 02/22/19 at 15:45; Stop 02/22/19 at 19:18; Status DC Diltiazem HCl 125 mg/Dextrose 125 ml @ 10 mls/hr 1X ONCE IV ; Start 02/22/19 at 15:45; Stop 02/22/19 at 19:18; Status DC Amiodarone HCl 900 mg/Dextrose 518 ml @ 0 mls/hr CONT PRN IV SEE I/O RECORD Last administered on 02/22/19at 16:43; Start 02/22/19 at 16:30; Stop 02/22/19 at 16:43; Status DC Amiodarone HCl 150 mg/Dextrose 103 ml @ 618 mls/hr 1X ONCE IV Last administered on 02/22/19at 16:35; Start 02/22/19 at 16:15; Stop 02/22/19 at 19:18; Status DC Fentanyl Citrate (Fentanyl 2ml Vial) 50 mcg 1X ONCE IV Last administered on 02/22/19at 16:44; Start 02/22/19 at 17:00; Stop 02/22/19 at 19:18; Status DC Midazolam HCl (Versed) 5 mg 1X ONCE NS Last administered on 02/22/19at 17:41; Start 02/22/19 at 17:00; Stop 02/22/19 at 19:18; Status DC Sodium Chloride 1,000 ml @ 125 mls/hr 1X ONCE IV Last administered on 02/22/19at 17:42; Start 02/22/19 at 17:00; Stop 02/23/19 at 00:59; Status DC Midazolam HCl (Versed) 5 mg STK-MED ONCE .ROUTE ; Start 02/22/19 at 16:54; Stop 02/22/19 at 16:54; Status DC Amiodarone HCl 900 mg/Dextrose 518 ml @ 17 mls/hr CONT PRN IV SEE I/O RECORD Last administered on 02/22/19at 19:31; Start 02/23/19 at 17:00; Stop 02/23/19 at 17:00; Status DC Carvedilol (Coreg) 3.125 mg BIDWMEALS PO Last administered on 02/23/19at 14:27; Start 02/22/19 at 19:30; Stop 02/23/19 at 14:47; Status DC Furosemide (Lasix) 10 mg DAILY PO ; Start 02/23/19 at 09:00; Stop 02/23/19 at 14:47; Status DC Lisinopril (Prinivil) 20 mg QEVNG PO Last administered on 02/23/19at 17:28; Start 02/22/19 at 19:30 Rivaroxaban (Xarelto) 10 mg BID PO ; Start 02/23/19 at 09:00; Stop 02/22/19 at 23:17; Status DC Zolpidem Tartrate (Ambien) 5 mg PRN QHS PRN PO INSOMNIA Last administered on 02/23/19at 21:19; Start 02/22/19 at 19:45 Docusate Sodium (Colace) 100 mg PRN DAILY PRN PO CONSTIPATION; Start 02/22/19 at 19:45 Cetirizine HCl (ZyrTEC) 10 mg DAILY PO Last administered on 02/23/19at 14:21; Start 02/22/19 at 22:15 Insulin Human Lispro (HumaLOG) 0-7 UNITS TIDWMEALS SQ Last administered on 02/23/19at 12:11; Start 02/23/19 at 08:00; Stop 02/23/19 at 12:24; Status DC Dextrose (Dextrose 50%-Water Syringe) 12.5 gm PRN Q15MIN PRN IV SEE COMMENTS; Start 02/22/19 at 22:00; Stop 02/23/19 at 12:25; Status DC Dextrose 250 ml PRN Q15MIN PRN IV SEE COMMENTS; Start 02/22/19 at 22:00; Status Cancel Aspirin (Ecotrin) 81 mg DAILYWBKFT PO Last administered on 02/24/19 08:49; Start 02/23/19 at 12:00 Levothyroxine Sodium (Synthroid) 75 mcg DAILY06 PO Last administered on 02/24/19 06:22; Start 02/23/19 at 15:30 Lisinopril (Prinivil) 20 mg DAILY PO ; Start 02/24/19 at 09:00; Stop 02/23/19 at 12:25; Status DC Metformin HCl (Glucophage) 500 mg BIDWMEALS PO Last administered on 02/23/19 17:26; Start 02/23/19 at 17:00 Citalopram Hydrobromide (CeleXA) 20 mg DAILY PO Last administered on 02/24/19 08:49; Start 02/23/19 at 13:00 Gabapentin (Neurontin) 600 mg DAILY PO Last administered on 02/24/19 08:49; Start 02/23/19 at 13:00 Glimepiride (Amaryl) 4 mg DAILY PO Last administered on 02/24/19 08:49; Start 02/23/19 at 13:00 Metoprolol Succinate (Toprol Xl) 25 mg DAILY PO Last administered on 02/24/19 08:49; Start 02/24/19 at 09:00 Insulin Human Lispro (HumaLOG) 0-9 UNITS TIDWMEALS SQ Last administered on 02/24/19 08:49; Start 02/23/19 at 17:00 Dextrose (Dextrose 50%-Water Syringe) 12.5 gm PRN Q15MIN PRN IV SEE COMMENTS; Start 02/23/19 at 12:15 Dextrose 250 ml PRN Q15MIN PRN IV SEE COMMENTS; Start 02/23/19 at 12:15; Status UNV Perflutren Protein Type A Microsphe (Optison) 0.66 mg 1X ONCE IV Last administered on 02/23/19at 13:18; Start 02/23/19 at 13:00; Stop 02/23/19 at 1 3:06; Status DC Hydrochlorothiazide (Microzide) 12.5 mg DAILY PO Last administered on 8/28/19at 08:49; Start 02/24/19 at 09:00 Amiodarone HCl 900 mg/Dextrose 518 ml @ 0 mls/hr CONT PRN IV SEE I/O RECORD; Start 02/23/19 at 17:15; Stop 02/23/19 at 19:08; Status DC Amiodarone HCl 450 mg/Dextrose 259 ml @ 17.267 mls/ hr CONT PRN IV SEE I/O RECORD Last administered on 02/23/19at 19:46; Start 02/23/19 at 19:15 Amiodarone HCl (Cordarone) 400 mg DAILY PO Last administered on 02/24/19at 08:49; Start 02/23/19 at 20:00 Active Scripts Active Reported Gabapentin 600 Mg Tablet 600 Mg PO HS Metoprolol ER-Hctz 25-12.5 mg (Metoprolol Succinate/Hctz) 1 Each Tab.er.24h 1 Each PO DAILY Xarelto (Rivaroxaban) 20 Mg Tablet 20 Mg PO DAILY Glimepiride 4 Mg Tablet 1 Tab PO DAILY Atorvastatin Calcium 80 Mg Tablet 1 Tab PO HS Escitalopram Oxalate 10 Mg Tablet 1 Tab PO HS Levothyroxine Sodium 75 Mcg Tablet 1 Tab PO DAILY Lisinopril 20 Mg Tablet 1 Tab PO QEVNG Metformin Hcl 500 Mg Tablet 500 Mg PO BIDWMEALS Vitals/I & O Vital Sign - Last 24 Hours 02/23/19 02/23/19 02/23/19 02/23/19 10:00 11:00 12:00 12:00 Temp 98.1 98.1 Pulse 81 75 78 Resp 24 11 11 B/P (MAP) 142/78 (99) 131/75 (93) 133/94 (107) Pulse Ox 95 95 95 O2 Delivery Room Air Room Air Room Air Room Air 02/23/19 02/23/19 02/23/19 02/23/19 13:00 14:00 14:27 15:00 Pulse 82 84 85 84 Resp 25 21 B/P (MAP) 116/77 (90) 107/68 (81) 108/68 132/85 (101) Pulse Ox 95 95 96 O2 Delivery Room Air Room Air Room Air 02/23/19 02/23/19 02/23/19 02/23/19 16:00 16:00 17:00 17:28 Temp 98.4 98.4 Pulse 82 72 81 Resp 20 20 B/P (MAP) 119/53 (75) 126/75 (92) 126/75 Pulse Ox 95 96 O2 Delivery Room Air Room Air Room Air 02/23/19 02/23/19 02/23/19 02/23/19 18:00 18:45 20:00 20:00 Temp 98.0 98.0 Pulse 76 76 78 Resp 22 22 24 B/P (MAP) 150/102 (118) 115/75 (88) 108/74 (85) Pulse Ox 94 95 95 O2 Delivery Room Air Room Air Room Air Room Air 02/23/19 02/23/19 02/23/19 02/23/19 21:00 21:28 22:00 23:00 Pulse 80 75 86 74 Resp 20 22 20 B/P (MAP) 111/82 (92) 123/78 113/83 (93) 123/81 (95) Pulse Ox 95 96 92 O2 Delivery Room Air Room Air Room Air 02/23/19 02/24/19 02/24/19 02/24/19 23:55 00:00 01:00 01:48 Temp 97.7 97.7 Pulse 76 87 Resp 20 22 B/P (MAP) 106/79 (88) () 124/72 (89) Pulse Ox 93 94 O2 Delivery Room Air Room Air Room Air 02/24/19 02/24/19 02/24/19 02/24/19 02:10 03:00 04:00 04:00 Temp 98.2 98.2 Pulse 80 87 72 Resp 18 18 27 B/P (MAP) 125/88 (100) 140/68 (92) 115/74 (88) Pulse Ox 93 95 91 O2 Delivery Room Air Room Air Room Air Room Air 02/24/19 02/24/19 02/24/19 02/24/19 05:00 05:45 07:00 08:00 Temp 98.2 98.2 Pulse 68 74 71 71 Resp 19 16 29 29 B/P (MAP) 101/65 (77) 140/93 (109) 142/93 (109) 135/96 (109) Pulse Ox 93 94 94 94 O2 Delivery Room Air Room Air Room Air Room Air 02/24/19 02/24/19 02/24/19 08:49 08:49 09:02 Pulse 71 71 73 Resp 27 B/P (MAP) 142/93 142/93 137/91 (106) Pulse Ox 94 O2 Delivery Room Air Intake and Output 02/23/19 02/23/19 02/24/19 14:59 22:59 06:59 Intake Total 736 ml 200 ml 201.8 ml Output Total 1350 ml 900 ml 1550 ml Balance -614 ml -700 ml -1348.2 ml CHITRA PAPPAS MD Feb 24, 2019 09:31
[2019-02-24] MEDS ORDERED: IOHEXOL 300 MG/ML 100ML VIAL. ONE (10:59)
[2019-02-24] MEDS ORDERED: LIDOCAINE 1% PF 2 ML VIAL. ONE (10:59)
[2019-02-24] MEDS ORDERED: HEPARIN for IV BOLUS 10,000 UNIT/10 ML VIAL. ONE (11:22)
[2019-02-24] MEDS ORDERED: MIDAZOLAM HCL/PF 5 MG/5 ML VIAL. ONE (11:22)
[2019-02-24] MEDS ORDERED: fentaNYL PF VIAL 100 MCG/2 ML VIAL ONE (11:22)
[2019-02-24] MEDS ORDERED: VERAPAMIL 5 MG/2 ML VIAL. ONE (11:22)
[2019-02-24] MEDS ORDERED: NITROGLYCERIN 200 MCG/2 ML SYRINGE FOR CATH/VASC LAB. ONE (11:23)
[2019-02-24] MEDS ORDERED: IOHEXOL 300 MG/ML 100ML VIAL. IART ONE (12:00)
[2019-02-24] MEDS ORDERED: NITROGLYCERIN 200 MCG/2 ML SYRINGE FOR CATH/VASC LAB. IART ONE (12:00)
[2019-02-24] MEDS ORDERED: HEPARIN for IV BOLUS 10,000 UNIT/10 ML VIAL. IART ONE (12:00)
[2019-02-24] MEDS ORDERED: fentaNYL PF VIAL 100 MCG/2 ML VIAL IV ONE (12:00)
[2019-02-24] MEDS ORDERED: VERAPAMIL 5 MG/2 ML VIAL. IART ONE (12:00)
[2019-02-24] MEDS ORDERED: CONTRAST GIVEN. MC PRN (12:00)
[2019-02-24] MEDS ORDERED: LIDOCAINE 1% Multi-Dose 20 ML VIAL. INJ ONE (12:00)
[2019-02-24] MEDS ORDERED: MIDAZOLAM HCL/PF 5 MG/5 ML VIAL. IV ONE (12:00)
--- NOTE | 2019-02-24 12:22 | CARD ---
MR#: [id number] Date of Study: 02/24/2019 Ordering Physician: CHRISTIAN MORROW, Referring Physician: CHRISTIAN MORROW, Tech: Adrianne uMkherjee APPROVED REPORT Technologist: Adrianne Mukherjee Nurse: Iza Portillo R.N. Procedure(s) performed: fl time: 2.7 mins dose: 63 gy/cm2 contrast: 70 ml omni 300 sedation: 37 min [facility] Clinical Frailty Scale [facility] Clinical Frailty Scale: Managing Well Heart Failure Heart Failure: Yes If Yes, Newly Diagnosed: No If Yes, HF Type: Diastolic Systolic If Yes, NYHA Class: Class II PROCEDURE NARRATIVE INFORMED CONSENT: After explaining the risks and benefits of the procedure and alternatives, informed consent was obtained. The patient was brought electively to the cardiac catheterization lab. A timeout was performed confi rming the patient's name, date of , procedure, and site of procedure. All necessary personnel w ere wearing the appropriate protective equipment and radiation monitor devices. (See nursing notes for medications administered). ACCESS: The right wrist was sterilely prepped and draped in the usual fashion. The right wrist was infiltrat ed with 1 mL of 2% lidocaine for subcutaneous anesthesia. A 6 [place] Terumo glide sheath was inserte d into the right radial artery without difficulty. CORONARY ANGIOGRAPHY: Right and left coronary angiography was performed using a 6Fr TIG 4.0 catheter. Left ventricular en d diastolic pressure was obtained with a pigtail catheter and pullback was performed after left ventr iculography. All catheter exchanges and advancements were performed over a guidewire. CLOSURE: At case completion the right radial sheath was removed and a Terumo radial band was applied with 13 m l of air. COMPLICATIONS: The patient tolerated the procedure well and there were no immediate complications. FINDINGS: HEMODYNAMICS: LVEDP 29 mm Hg No gradient on LV to aortic pullback. AO: 128/78 LEFT VENTRICULOGRAM: EF20% There is severe global hypokinesis CORONARY ANGIOGRAPHY: LM is a large caliber vessel with normal angiographic appearance. LAD is a large caliber vessel with normal angiographic appearance. Ramus is a moderate caliber vessel with normal angiographic apeparance. LCx is a moderate caliber non-dominant vessel with normal angiographic appearance. OM1 is a moderate caliber vessel with normal angiographic appearance. RCA is a large caliber dominant vessel with normal angiographic appearance. RPDA and RPL are moderate caliber vessels with normal angiographic appearance. Conclusion 1. Acute on chronic systolic and diastolic HF. LVEDP 29 mm Hg 2. Severe LV dysfunction. EF 20% 3. No significant coronary disease. Recommendations 1. Will plan for ICD placement in the near future for secondary prevention of cardiac arrest due to V T 2. Continue aggressive risk factor modification. Signed by : Alex Newberry, Electronically Approved : 02/24/2019 12:22:22
[2019-02-24] MEDS ORDERED: LIDOCAINE 1% PF 2 ML VIAL. INJ ONE (12:30)
--- NOTE | 2019-02-24 15:04 | EKG ---
[facility] [address] [place] [address] Test Date: 2019-02-24 Test Time: 14:49:28 Pat Name: ALONSO GALEANO Department: Room: 105 1 Gender: M [employer]: : 1960 Requested By: ALLISON LEWIS Order Number: [id number] Reading MD: Allison Lewis MD Measurements Intervals [place] Rate: 65 P: [place]: QRS: -164 QRSD: 106 T: 60 QT: 504 QTc: 525 Interpretive Statements SR 1ST DEGREE AVB LIMB LEAD MISPLACEMENT IVCD Electronically Signed On 02-25-2019 14:14:10 CDT by Allison Lewis MD
[2019-02-24] MEDS: LISINOPRIL 20 MG TABLET PO SCH (17:14)
[2019-02-24] MEDS: ZOLPIDEM 5 MG TABLET. PO PRN (20:47)
[2019-02-25] VITALS (27 sets, daily range): BP systolic 102–149; BP diastolic 63–94
[2019-02-25 05:26] LABS: HEMATOCRIT 42.7 % (39.0-53.0); HEMOGLOBIN 14.3 g/dL (13.0-17.5); RED BLOOD COUNT 4.79 x10^6/uL (4.30-5.70); RED CELL DISTRIBUTION WIDTH 13.4 % (11.5-14.5); WHITE BLOOD COUNT 9.7 x10^3/uL (4.0-11.0)
[2019-02-25 05:50] LABS: CREATININE 0.9 mg/dL (0.7-1.3); GFR 86.7
[2019-02-25] MEDS: LEVOTHYROXINE 75 MCG TABLET PO SCH ×2 (06:00→08:25)
[2019-02-25] MEDS: INSULIN LISPRO 300 UNITS/3 ML VIAL. SQ SCH ×3 (08:00→18:00)
[2019-02-25] MEDS: ASPIRIN ENTERIC COATED 81 MG TABLET.DR. PO SCH (08:21)
[2019-02-25] MEDS: GABAPENTIN 300 MG CAPSULE. PO SCH (08:21)
[2019-02-25] MEDS: CETIRIZINE HCL 10 MG TABLET. PO SCH (08:21)
[2019-02-25] MEDS: hydroCHLOROthiazide 12.5 MG CAPSULE PO SCH (08:21)
[2019-02-25] MEDS: CITALOPRAM 20 MG TABLET. PO SCH (08:22)
[2019-02-25] MEDS: AMIODARONE HCL 200 MG TABLET. PO SCH (08:22)
[2019-02-25] MEDS: GLIMEPIRIDE 2 MG TABLET. PO SCH (08:23)
[2019-02-25] MEDS: METOPROLOL SUCC 24HR ER 25 MG TAB.ER.24H. PO SCH (08:26)
[2019-02-25 10:22] LABS: PROTHROMBIN TIME PATIENT 15.1 SEC (11.7-14.0)
--- NOTE | 2019-02-25 10:35 | PDOC ---
PROGRESS NOTES Chief Complaint Chief Complaint GLobal hypokineses with EF 20-45% NOrmal coronaries s/p LHC 02/24 SVT s/p inhospital cardioversion PErmanent a fib on OAC (eliquis) Obesity Hx CHF (currently compensated), MIld leg edema LEukocytosis, reactive non infectious;\ TRop elevation History of Present Illness History of Present Illness Seen in ICU /s.p amio gtt I provided him copies of hie echo and lHC He is planned for AICD placement today echo: EF 45%, EF at cath 20% <Conclusion> Left ventricle systolic function is mildly decreased. EF 45% There is mild global hypokinesis. The right ventricle is moderately dilated. RV Systolic function is mildly reduced. Doppler and Color-flow revealed mild to moderate mitral regurgitation. Doppler and Color Flow revealed mild tricuspid regurgitation. The PA pressure was estimated at 61 mm Hg. There is moderate pulmonary hypertension. PLAn: AICD placement today Vitals Vitals Vital Signs Date Time Temp Pulse Resp B/P (MAP) Pulse Ox O2 Delivery O2 Flow Rate FiO2 02/25/19 08:26 70 116/77 02/25/19 08:00 97.4 22 93 Room Air 97.4 02/24/19 12:23 2.0 Physical Exam General: Alert, Oriented X3, Cooperative, No acute distress Heart: Regular rate (SR with first degree AV block), Normal S1, Normal S2, Other (3/6 systolic murmur to LLS border) Lungs: Clear Abdomen: Soft, No tenderness, Other (obese) Extremities: No cyanosis, No edema Skin: No breakdown Labs LABS Laboratory Tests Test 02/24/19 12:27 02/24/19 17:08 02/25/19 04:50 02/25/19 08:18 Glucose (Fingerstick) 158 mg/dL (70-99) 183 mg/dL (70-99) 197 mg/dL (70-99) White Blood Count 9.7 x10^3/uL (4.0-11.0) Red Blood Count 4.79 x10^6/uL (4.30-5.70) Hemoglobin 14.3 g/dL (13.0-17.5) Hematocrit 42.7 % (39.0-53.0) Mean Corpuscular Volume 89 fL (79-100) Mean Corpuscular Hemoglobin 30 pg (25-35) Mean Corpuscular Hemoglobin Concent 34 g/dL (31-37) Red Cell Distribution Width 13.4 % (11.5-14.5) Platelet Count 188 x10^3/uL (140-400) Sodium Level 139 mmol/L (136-145) Potassium Level 4.0 mmol/L (3.5-5.1) Chloride Level 103 mmol/L (98-107) Carbon Dioxide Level 26 mmol/L (21-32) Anion Gap 10 (6-14) Blood Urea Nitrogen 12 mg/dL (8-26) Creatinine 0.9 mg/dL (0.7-1.3) Estimated GFR (Cockcroft-Gault) 86.7 Glucose Level 221 mg/dL (70-99) Calcium Level 9.0 mg/dL (8.5-10.1) Review of Systems Review of Systems no cp, does have SOA on exertion, paradi tender abd pain, n.v.d, or fevers Assessment and Plan Assessmemt and Plan Problems Medical Problems: (1) Chest pain Status: Acute (2) HTN (hypertension) Status: Chronic (3) Hypothyroidism Status: Chronic (4) Morbid obesity Status: Chronic (5) Paroxysmal A-fib Status: Acute (6) Syncope Status: Acute (7) Uncontrolled diabetes mellitus Status: Acute (8) Ventricular tachycardia Status: Acute Comment Review of Relevant I have reviewed the following items kendra (where applicable) has been applied. Labs Laboratory Tests Test 02/23/19 12:00 02/23/19 17:17 02/24/19 03:55 02/24/19 08:44 Glucose (Fingerstick) 274 mg/dL (70-99) 178 mg/dL (70-99) 210 mg/dL (70-99) Sodium Level 140 mmol/L (136-145) Potassium Level 4.0 mmol/L (3.5-5.1) Chloride Level 105 mmol/L (98-107) Carbon Dioxide Level 25 mmol/L (21-32) Anion Gap 10 (6-14) Blood Urea Nitrogen 11 mg/dL (8-26) Creatinine 0.9 mg/dL (0.7-1.3) Estimated GFR (Cockcroft-Gault) 86.7 Glucose Level 209 mg/dL (70-99) Calcium Level 8.7 mg/dL (8.5-10.1) Magnesium Level 1.8 mg/dL (1.8-2.4) Test 02/24/19 12:27 02/24/19 17:08 02/25/19 04:50 02/25/19 08:18 Glucose (Fingerstick) 158 mg/dL (70-99) 183 mg/dL (70-99) 197 mg/dL (70-99) White Blood Count 9.7 x10^3/uL (4.0-11.0) Red Blood Count 4.79 x10^6/uL (4.30-5.70) Hemoglobin 14.3 g/dL (13.0-17.5) Hematocrit 42.7 % (39.0-53.0) Mean Corpuscular Volume 89 fL (79-100) Mean Corpuscular Hemoglobin 30 pg (25-35) Mean Corpuscular Hemoglobin Concent 34 g/dL (31-37) Red Cell Distribution Width 13.4 % (11.5-14.5) Platelet Count 188 x10^3/uL (140-400) Sodium Level 139 mmol/L (136-145) Potassium Level 4.0 mmol/L (3.5-5.1) Chloride Level 103 mmol/L (98-107) Carbon Dioxide Level 26 mmol/L (21-32) Anion Gap 10 (6-14) Blood Urea Nitrogen 12 mg/dL (8-26) Creatinine 0.9 mg/dL (0.7-1.3) Estimated GFR (Cockcroft-Gault) 86.7 Glucose Level 221 mg/dL (70-99) Calcium Level 9.0 mg/dL (8.5-10.1) Laboratory Tests Test 02/24/19 12:27 02/24/19 17:08 02/25/19 04:50 02/25/19 08:18 Glucose (Fingerstick) 158 mg/dL (70-99) 183 mg/dL (70-99) 197 mg/dL (70-99) White Blood Count 9.7 x10^3/uL (4.0-11.0) Red Blood Count 4.79 x10^6/uL (4.30-5.70) Hemoglobin 14.3 g/dL (13.0-17.5) Hematocrit 42.7 % (39.0-53.0) Mean Corpuscular Volume 89 fL (79-100) Mean Corpuscular Hemoglobin 30 pg (25-35) Mean Corpuscular Hemoglobin Concent 34 g/dL (31-37) Red Cell Distribution Width 13.4 % (11.5-14.5) Platelet Count 188 x10^3/uL (140-400) Sodium Level 139 mmol/L (136-145) Potassium Level 4.0 mmol/L (3.5-5.1) Chloride Level 103 mmol/L (98-107) Carbon Dioxide Level 26 mmol/L (21-32) Anion Gap 10 (6-14) Blood Urea Nitrogen 12 mg/dL (8-26) Creatinine 0.9 mg/dL (0.7-1.3) Estimated GFR (Cockcroft-Gault) 86.7 Glucose Level 221 mg/dL (70-99) Calcium Level 9.0 mg/dL (8.5-10.1) Medications Current Medications Diltiazem HCl (Cardizem Iv Push) 20 mg 1X ONCE IVP Last administered on 02/22/19at 16:29; Start 02/22/19 at 15:45; Stop 02/22/19 at 19:18; Status DC Diltiazem HCl 125 mg/Dextrose 125 ml @ 10 mls/hr 1X ONCE IV ; Start 02/22/19 at 15:45; Stop 02/22/19 at 19:18; Status DC Amiodarone HCl 900 mg/Dextrose 518 ml @ 0 mls/hr CONT PRN IV SEE I/O RECORD Last administered on 02/22/19at 16:43; Start 02/22/19 at 16:30; Stop 02/22/19 at 16:43; Status DC Amiodarone HCl 150 mg/Dextrose 103 ml @ 618 mls/hr 1X ONCE IV Last administered on 02/22/19at 16:35; Start 02/22/19 at 16:15; Stop 02/22/19 at 19:18; Status DC Fentanyl Citrate (Fentanyl 2ml Vial) 50 mcg 1X ONCE IV Last administered on 02/22/19at 16:44; Start 02/22/19 at 17:00; Stop 02/22/19 at 19:18; Status DC Midazolam HCl (Versed) 5 mg 1X ONCE NS Last administered on 02/22/19at 17:41; Start 02/22/19 at 17:00; Stop 02/22/19 at 19:18; Status DC Sodium Chloride 1,000 ml @ 125 mls/hr 1X ONCE IV Last administered on 02/22/19at 17:42; Start 02/22/19 at 17:00; Stop 02/23/19 at 00:59; Status DC Midazolam HCl (Versed) 5 mg STK-MED ONCE .ROUTE ; Start 02/22/19 at 16:54; Stop 02/22/19 at 16:54; Status DC Amiodarone HCl 900 mg/Dextrose 518 ml @ 17 mls/hr CONT PRN IV SEE I/O RECORD Last administered on 02/22/19at 19:31; Start 02/23/19 at 17:00; Stop 02/23/19 at 17:00; Status DC Carvedilol (Coreg) 3.125 mg BIDWMEALS PO Last administered on 02/23/19at 14:27; Start 02/22/19 at 19:30; Stop 02/23/19 at 14:47; Status DC Furosemide (Lasix) 10 mg DAILY PO ; Start 02/23/19 at 09:00; Stop 02/23/19 at 14:47; Status DC Lisinopril (Prinivil) 20 mg QEVNG PO Last administered on 02/24/19at 17:14; Start 02/22/19 at 19:30 Rivaroxaban (Xarelto) 10 mg BID PO ; Start 02/23/19 at 09:00; Stop 02/22/19 at 23:17; Status DC Zolpidem Tartrate (Ambien) 5 mg PRN QHS PRN PO INSOMNIA Last administered on 02/24/19at 20:52; Start 02/22/19 at 19:45 Docusate Sodium (Colace) 100 mg PRN DAILY PRN PO CONSTIPATION; Start 02/22/19 at 19:45 Cetirizine HCl (ZyrTEC) 10 mg DAILY PO Last administered on 02/25/19at 08:23; Start 02/22/19 at 22:15 Insulin Human Lispro (HumaLOG) 0-7 UNITS TIDWMEALS SQ Last administered on 02/23/19at 12:11; Start 02/23/19 at 08:00; Stop 02/23/19 at 12:24; Status DC Dextrose (Dextrose 50%-Water Syringe) 12.5 gm PRN Q15MIN PRN IV SEE COMMENTS; Start 02/22/19 at 22:00; Stop 02/23/19 at 12:25; Status DC Dextrose 250 ml PRN Q15MIN PRN IV SEE COMMENTS; Start 02/22/19 at 22:00; Status Cancel Aspirin (Ecotrin) 81 mg DAILYWBKFT PO Last administered on 02/25/19 08:23; Start 02/23/19 at 12:00 Levothyroxine Sodium (Synthroid) 75 mcg DAILY06 PO Last administered on 02/25/19 08:26; Start 02/23/19 at 15:30 Lisinopril (Prinivil) 20 mg DAILY PO ; Start 02/24/19 at 09:00; Stop 02/23/19 at 12:25; Status DC Metformin HCl (Glucophage) 500 mg BIDWMEALS PO Last administered on 02/23/19at 17:26; Start 02/23/19 at 17:00; Stop 02/24/19 at 11:54; Status DC Citalopram Hydrobromide (CeleXA) 20 mg DAILY PO Last administered on 02/25/19 08:23; Start 02/23/19 at 13:00 Gabapentin (Neurontin) 600 mg DAILY PO Last administered on 02/25/19 08:23; Start 02/23/19 at 13:00 Glimepiride (Amaryl) 4 mg DAILY PO Last administered on 02/25/19 08:23; Start 02/23/19 at 13:00 Metoprolol Succinate (Toprol Xl) 25 mg DAILY PO Last administered on 02/25/19at 08:26; Start 02/24/19 at 09:00 Insulin Human Lispro (HumaLOG) 0-9 UNITS TIDWMEALS SQ Last administered on 02/24/19at 17:11; Start 02/23/19 at 17:00 Dextrose (Dextrose 50%-Water Syringe) 12.5 gm PRN Q15MIN PRN IV SEE COMMENTS; Start 02/23/19 at 12:15 Dextrose 250 ml PRN Q15MIN PRN IV SEE COMMENTS; Start 02/23/19 at 12:15; Status UNV Perflutren Protein Type A Microsphe (Optison) 0.66 mg 1X ONCE IV Last administered on 02/23/19at 13:18; Start 02/23/19 at 13:00; Stop 02/23/19 at 13:06; Status DC Hydrochlorothiazide (Microzide) 12.5 mg DAILY PO Last administered on 02/25/19at 08:23; Start 02/24/19 at 09:00 Amiodarone HCl 900 mg/Dextrose 518 ml @ 0 mls/hr CONT PRN IV SEE I/O RECORD; Start 02/23/19 at 17:15; Stop 02/23/19 at 19:08; Status DC Amiodarone HCl 450 mg/Dextrose 259 ml @ 17.267 mls/ hr CONT PRN IV SEE I/O RECORD Last administered on 02/23/19at 19:46; Start 02/23/19 at 19:15; Stop 02/25/19 at 10:08; Status DC Amiodarone HCl (Cordarone) 400 mg DAILY PO Last administered on 02/25/19at 08:23; Start 02/23/19 at 20:00 Lidocaine HCl (Xylocaine-Mpf 1% 2ml Vial) 2 ml STK-MED ONCE .ROUTE ; Start 02/24/19 at 10:59; Stop 02/24/19 at 11:00; Status DC Iohexol (Omnipaque 300 Mg/ml) 100 ml STK-MED ONCE .ROUTE ; Start 02/24/19 at 10:59; Stop 02/24/19 at 11:00; Status DC Heparin Sodium/ Sodium Chloride 1,000 ml @ As Directed STK-MED ONCE .ROUTE ; Start 02/24/19 at 10:59; Stop 02/24/19 at 11:00; Status DC Fentanyl Citrate (Fentanyl 2ml Vial) 100 mcg STK-MED ONCE .ROUTE ; Start 02/24/19 at 11:22; Stop 02/24/19 at 11:22; Status DC Midazolam HCl (Versed) 5 mg STK-MED ONCE .ROUTE ; Start 02/24/19 at 11:22; Stop 02/24/19 at 11:22; Status DC Heparin Sodium (Porcine) (Heparin Sodium) 10,000 unit STK-MED ONCE .ROUTE ; Start 02/24/19 at 11:22; Stop 02/24/19 at 11:22; Status DC Verapamil HCl (Verapamil) 5 mg STK-MED ONCE .ROUTE ; Start 02/24/19 at 11:22; Stop 02/24/19 at 11:23; Status DC Nitroglycerin (Nitroglycerin) 200 mcg STK-MED ONCE .ROUTE ; Start 02/24/19 at 11:23; Stop 02/24/19 at 11:23; Status DC Nitroglycerin (Nitroglycerin) 200 mcg 1X ONCE IART Last administered on 02/24/19at 12:15; Start 02/24/19 at 12:00; Stop 02/24/19 at 12:01; Status DC Verapamil HCl (Verapamil) 2.5 mg 1X ONCE IART Last administered on 02/24/19 12:15; Start 02/24/19 at 12:00; Stop 02/24/19 at 12:01; Status DC Heparin Sodium (Porcine) (Heparin Sodium) 2,500 unit 1X ONCE IART Last administered on 02/24/19 12:15; Start 02/24/19 at 12:00; Stop 02/24/19 at 12:01; Status DC Heparin Sodium/ Sodium Chloride (HEPARIN for ARTERIAL LINE FLUSH) 1,000 unit 1X ONCE IART Last administered on 02/24/19 12:15; Start 02/24/19 at 12:00; Stop 02/24/19 at 12:01; Status DC Heparin Sodium/ Sodium Chloride (HEPARIN for ARTERIAL LINE FLUSH) 1,000 unit 1X ONCE IART Last administered on 02/24/19 12:15; Start 02/24/19 at 12:00; Stop 02/24/19 at 12:01; Status DC Midazolam HCl (Versed) 5 mg 1X ONCE IV Last administered on 02/24/19 12:15; Start 02/24/19 at 12:00; Stop 02/24/19 at 12:01; Status DC Fentanyl Citrate (Fentanyl 2ml Vial) 100 mcg 1X ONCE IV Last administered on 02/24/19 12:15; Start 02/24/19 at 12:00; Stop 02/24/19 at 12:01; Status DC Iohexol (Omnipaque 300 Mg/ml) 100 ml 1X ONCE IART Last administered on 02/24/19 12:15; Start 02/24/19 at 12:00; Stop 02/24/19 at 12:01; Status DC Lidocaine HCl (Lidocaine 1% 20ml Vial) 20 ml 1X ONCE INJ ; Start 02/24/19 at 12:00; Stop 02/24/19 at 12:24; Status DC Info (CONTRAST GIVEN -- Rx MONITORING) 1 each PRN DAILY PRN MC SEE COMMENTS; Start 02/24/19 at 12:00; Stop 02/26/19 at 11:59 Metformin HCl (Glucophage) 500 mg BIDWMEALS PO ; Start 02/26/19 at 17:00 Lidocaine HCl (Xylocaine-Mpf 1% 2ml Vial) 2 ml 1X ONCE INJ Last administered on 02/24/19at 12:25; Start 02/24/19 at 12:30; Stop 02/24/19 at 12:31; Status DC Active Scripts Active Reported Gabapentin 600 Mg Tablet 600 Mg PO HS Metoprolol ER-Hctz 25-12.5 mg (Metoprolol Succinate/Hctz) 1 Each Tab.er.24h 1 Each PO DAILY Xarelto (Rivaroxaban) 20 Mg Tablet 20 Mg PO DAILY Glimepiride 4 Mg Tablet 1 Tab PO DAILY Atorvastatin Calcium 80 Mg Tablet 1 Tab PO HS Escitalopram Oxalate 10 Mg Tablet 1 Tab PO HS Levothyroxine Sodium 75 Mcg Tablet 1 Tab PO DAILY Lisinopril 20 Mg Tablet 1 Tab PO QEVNG Metformin Hcl 500 Mg Tablet 500 Mg PO BIDWMEALS Vitals/I & O Vital Sign - Last 24 Hours 02/24/19 02/24/19 02/24/19 02/24/19 11:00 12:15 12:15 12:20 Temp 98.4 98.4 Pulse 79 87 69 Resp 18 24 B/P (MAP) 133/89 (104) 125/82 133/89 (104) Pulse Ox 96 96 94 O2 Delivery Room Air Nasal Cannula Room Air O2 Flow Rate 2.0 02/24/19 02/24/19 02/24/19 02/24/19 12:20 12:23 12:35 13:00 Pulse 87 78 75 Resp 21 24 24 B/P (MAP) 133/88 (103) 148/86 (106) Pulse Ox 96 94 96 O2 Delivery Room Air Nasal Cannula Room Air Room Air O2 Flow Rate 2.0 02/24/19 02/24/19 02/24/19 02/24/19 13:15 13:30 14:00 14:32 Pulse 70 72 65 Resp 22 22 22 24 B/P (MAP) 138/90 (106) 125/84 (98) 113/73 (86) Pulse Ox 96 96 93 93 O2 Delivery Room Air Room Air Room Air Room Air 02/24/19 02/24/19 02/24/19 02/25/19 17:14 19:00 20:00 00:00 Temp 98.8 98.6 98.8 98.6 Pulse 65 84 69 Resp 18 22 B/P (MAP) 113/73 132/89 (103) 102/68 (79) Pulse Ox 98 97 O2 Delivery Room Air Room Air Room Air 02/25/19 02/25/19 02/25/19 02/25/19 04:00 08:00 08:00 08:23 Temp 98.6 97.4 98.6 97.4 Pulse 64 71 70 Resp 22 22 B/P (MAP) 139/68 (91) 116/77 (90) 116/77 Pulse Ox 97 93 O2 Delivery Room Air Room Air Room Air 02/25/19 08:26 Pulse 70 B/P (MAP) 116/77 Intake and Output 02/24/19 02/24/19 02/25/19 14:59 22:59 06:59 Intake Total 333 ml 240 ml Output Total 500 ml 700 ml 350 ml Balance -167 ml -460 ml -350 ml CHITRA PAPPAS MD Feb 25, 2019 10:35
[2019-02-25] MEDS ORDERED: fentaNYL PF VIAL 250 MCG/5 ML VIAL IV ONE (11:45)
[2019-02-25] MEDS ORDERED: LIDOCAINE 2%/EPI 1:100,000 20 ML VIAL. IJ ONE (11:45)
[2019-02-25] MEDS ORDERED: LIDOCAINE 2%/EPI 1:100,000 20 ML VIAL. ONE (11:51)
[2019-02-25] MEDS ORDERED: MIDAZOLAM HCL/PF 5 MG/5 ML VIAL. IV ONE (12:00)
[2019-02-25] MEDS ORDERED: BACITRACIN 50,000 UNIT in IV NORMAL SALINE 250ML 250 ML IRR ONE (12:00)
[2019-02-25] MEDS ORDERED: ceFAZolin SODIUM 3 GM in IV DEXTROSE 5% 100ML 100 ML IV ONE (12:00)
--- NOTE | 2019-02-25 14:09 | CARD ---
MR#: [id number] Date of Study: 02/25/2019 Ordering Physician: ALLISON LEWIS, Referring Physician: ALLISON LEWIS, Tech: APPROVED REPORT EXAM Moderate Sedation time: 80 MINUTES Fluoro time: 6.0 min Dose: 114 Gycm2 HISTORY The Patient is a 58 year-old male with a history of VT and sudden IMPLANTED DEVICES After appropriate informed consent the patient was prepped and draped in usual sterile fashion. 30 mL of 2% lidocaine was infiltrated into the skin and subcutaneous tissues for local anesthesia. A n incision was made over the left infraclavicular fossa and using blunt dissection and cautery a pock et was created. Venous access was obtained in the left subclavian vein and 7/6 Fijian sheaths were i nserted. Subsequently, a [employer] bipolar active fixation right ventricular lead SN [id number] was advanced und er fluoroscopic guidance and the tip was positioned in the right ventricular apex. Following this, a [employer] bipolar active fixation right atrial lead SN [id number] was placed in the right atrial appen dage under fluoroscopy guidance. The leads were secured into place and were attached to a [employer] Y[employer]an d ual-chamber ICD, SN [id number]. This was placed in the pocket that was subsequently closed in 3 layers. Hemostasis was secured. At the end of procedure, the right ventricular lead showed sensing amplitude of 11.7 mV, impedance of 580 ohms and a threshold of 0.75volts at 0.5 ms. The right atrial lead showed a sensing amplitude o f 2.3 millivolts, impedance of 680 ohms and a threshold of 1.5 volts at0.5 ms. Patient tolerated the procedure well. There were no immediate complications. Settings: DDD, 60-130 CONCLUSION 1. Successful insertion of a dual chamber [employer] MRI compatible ICD for secondary prevention of rola den cardiac and NICM/VT. Signed by : Allison Lewis, Electronically Approved : 02/25/2019 14:09:14
--- NOTE | 2019-02-25 16:34 | RAD ---
Chest radiograph 02/25/2019 2:33 PM INDICATION: Status post pacer placement COMPARISON: 02/22/2019 TECHNIQUE: Portable upright frontal view of the chest is provided. FINDINGS: The cardiomediastinal silhouette is enlarged, stable. Mild pulmonary vascular congestion. New left chest wall cardiac device is identified with leads projecting over the right atrium and right ventricle. No pneumothorax. No definite pleural effusions. IMPRESSION: Stable cardiomegaly and mild pulmonary vascular congestion. New left chest wall cardiac device with leads in appropriate position. No pneumothorax. Electronically signed by: Kylie Hector MD (02/25/2019 4:31 PM) [id number]
[2019-02-25] MEDS: LISINOPRIL 20 MG TABLET PO SCH (17:47)
[2019-02-25] MEDS: ZOLPIDEM 5 MG TABLET. PO PRN (20:25)
[2019-02-26] VITALS (14 sets, daily range): BP systolic 118–171; BP diastolic 67–89
[2019-02-26] MEDS: LEVOTHYROXINE 75 MCG TABLET PO SCH (04:56)
[2019-02-26] MEDS ORDERED: IV RINGERS,LACTATED 1000ML 1,000 ML IV SCH (07:00)
[2019-02-26] MEDS: INSULIN LISPRO 300 UNITS/3 ML VIAL. SQ SCH ×3 (08:00→18:12)
[2019-02-26] MEDS: CETIRIZINE HCL 10 MG TABLET. PO SCH (08:42)
[2019-02-26] MEDS: GABAPENTIN 300 MG CAPSULE. PO SCH (08:43)
[2019-02-26] MEDS: CITALOPRAM 20 MG TABLET. PO SCH (08:43)
[2019-02-26] MEDS: AMIODARONE HCL 200 MG TABLET. PO SCH (08:44)
[2019-02-26] MEDS: hydroCHLOROthiazide 12.5 MG CAPSULE PO SCH (08:45)
[2019-02-26] MEDS: ASPIRIN ENTERIC COATED 81 MG TABLET.DR. PO SCH (08:45)
[2019-02-26] MEDS: METOPROLOL SUCC 24HR ER 25 MG TAB.ER.24H. PO SCH (08:47)
[2019-02-26] MEDS: GLIMEPIRIDE 2 MG TABLET. PO SCH (08:47)
--- NOTE | 2019-02-26 10:30 | PDOC ---
PROGRESS NOTES Chief Complaint Chief Complaint GLobal hypokineses with EF 20-45% NOrmal coronaries s/p [facility] 02/24 remote alcohol abuse last drink 2016 SVT s/p inhospital cardioversion PErmanent a fib on OAC (eliquis) Acute on chronic systolic and diastolic HF. LVEDP 29 mm Hg Severe LV dysfunction. EF 20% c/w cardiomyopathy No significant coronary disease. Obesity, extreme morbid Hx CHF (currently compensated), MIld leg edema LEukocytosis, reactive non infectious;\ TRop elevation History of Present Illness History of Present Illness /s.p amio gtt AICD placement echo: EF 45%, EF at cath 20% <Conclusion> Left ventricle systolic function is mildly decreased. EF 45% There is mild global hypokinesis. The right ventricle is moderately dilated. RV Systolic function is mildly reduced. Doppler and Color-flow revealed mild to moderate mitral regurgitation. Doppler and Color Flow revealed mild tricuspid regurgitation. The PA pressure was estimated at 61 mm Hg. There is moderate pulmonary hypertension. PLAn: Successful insertion of a dual chamber [employer] Y[employer]an MRI compatible ICD for secondary prevention of sudden cardiac and NICM/VT. 37 min pt exam, chart review, > 50% of time spent with exam, chart review, pt care coordination Vitals Vitals Vital Signs Date Time Temp Pulse Resp B/P (MAP) Pulse Ox O2 Delivery O2 Flow Rate FiO2 02/26/19 08:48 58 126/70 02/26/19 08:00 Room Air 02/26/19 07:00 98.1 17 96 98.1 02/25/19 12:56 4.0 Physical Exam General: Alert, Oriented X3, Cooperative, No acute distress Heart: Regular rate (SR with first degree AV block), Normal S1, Normal S2, Other (3/6 systolic murmur to LLS border) Lungs: Clear Abdomen: Normal bowel sounds, Soft, No tenderness, Other (obese) Extremities: No clubbing, No cyanosis, No edema Skin: No breakdown Labs LABS CORONARY ANGIOGRAPHY: Right and left coronary angiography was performed using a 6Fr TIG 4.0 catheter. Left ventricular end diastolic pressure was obtained with a pigtail catheter and pullback was performed after left ventriculography. All catheter exchanges and advancements were performed over a guidewire. CLOSURE: At case completion the right radial sheath was removed and a Terumo radial band was applied with 13 ml of air. COMPLICATIONS: The patient tolerated the procedure well and there were no immediate complications. FINDINGS: HEMODYNAMICS: LVEDP 29 mm Hg No gradient on LV to aortic pullback. AO: 128/78 LEFT VENTRICULOGRAM: EF20% There is severe global hypokinesis CORONARY ANGIOGRAPHY: LM is a large caliber vessel with normal angiographic appearance. LAD is a large caliber vessel with normal angiographic appearance. Ramus is a moderate caliber vessel with normal angiographic apeparance. LCx is a moderate caliber non-dominant vessel with normal angiographic appearance. OM1 is a moderate caliber vessel with normal angiographic appearance. RCA is a large caliber dominant vessel with normal angiographic appearance. RPDA and RPL are moderate caliber vessels with normal angiographic appearance. Conclusion 1. Acute on chronic systolic and diastolic HF. LVEDP 29 mm Hg 2. Severe LV dysfunction. EF 20% 3. No significant coronary disease. Recommendations 1. Will plan for ICD placement in the near future for secondary prevention of cardiac arrest due to VT 2. Continue aggressive risk factor modification. Signed by : Allison Lewis, Electronically Approved : 02/24/2019 12:22:22 DICTATED and SIGNED BY: ALLISON LEWIS MD DATE: 02/24/19 1216 EXAM Moderate Sedation time: 80 MINUTES Fluoro time: 6.0 min Dose: 114 Gycm2 HISTORY The Patient is a 58 year-old male with a history of VT and sudden IMPLANTED DEVICES After appropriate informed consent the patient was prepped and draped in usual sterile fashion. 30 mL of 2% lidocaine was infiltrated into the skin and subcutaneous tissues for local anesthesia. An incision was made over the left infraclavicular fossa and using blunt dissection and cautery a pocket was created. Venous access was obtained in the left subclavian vein and 7/6 [place] sheaths were inserted. Subsequently, a [employer] Yazan bipolar active fixation right ventricular lead SN [id number] was advanced under fluoroscopic guidance and the tip was positioned in the right ventricular apex. Following this, a [employer] Yazan bipolar active fixation right atrial lead SN [id number] was placed in the right atrial appendage under fluoroscopy guidance. The leads were secured into place and were attached to a [employer] Yazan dual-chamber ICD, SN [id number]. This was placed in the pocket that was subsequently closed in 3 layers. Hemostasis was secured. At the end of procedure, the right ventricular lead showed sensing amplitude of 11.7 mV, impedance of 580 ohms and a threshold of 0.75volts at 0.5 ms. The right atrial lead showed a sensing amplitude of 2.3 millivolts, impedance of 680 ohms and a threshold of 1.5 volts at0.5 ms. Patient tolerated the procedure well. There were no immediate complications. Settings: DDD, 60-130 CONCLUSION 1. Successful insertion of a dual chamber [employer] Y[employer] MRI compatible ICD for secondary prevention of sudden cardiac and NICM/VT. Signed by : Allison Lewis, Electronically Approved : 02/25/2019 14:09:14 Laboratory Tests Test 02/25/19 14:00 02/25/19 17:26 02/25/19 21:02 02/26/19 07:37 Glucose (Fingerstick) 216 mg/dL (70-99) 225 mg/dL (70-99) 203 mg/dL (70-99) 194 mg/dL (70-99) Assessment and Plan Assessmemt and Plan Problems Medical Problems: (1) Chest pain Status: Acute (2) HTN (hypertension) Status: Chronic (3) Hypothyroidism Status: Chronic (4) Morbid obesity Status: Chronic (5) Paroxysmal A-fib Status: Acute (6) Syncope Status: Acute (7) Uncontrolled diabetes mellitus Status: Acute (8) Ventricular tachycardia Status: Acute Comment Review of Relevant I have reviewed the following items kendra (where applicable) has been applied. Labs Laboratory Tests Test 02/24/19 12:27 02/24/19 17:08 02/25/19 04:50 02/25/19 08:18 Glucose (Fingerstick) 158 mg/dL (70-99) 183 mg/dL (70-99) 197 mg/dL (70-99) White Blood Count 9.7 x10^3/uL (4.0-11.0) Red Blood Count 4.79 x10^6/uL (4.30-5.70) Hemoglobin 14.3 g/dL (13.0-17.5) Hematocrit 42.7 % (39.0-53.0) Mean Corpuscular Volume 89 fL (79-100) Mean Corpuscular Hemoglobin 30 pg (25-35) Mean Corpuscular Hemoglobin Concent 34 g/dL (31-37) Red Cell Distribution Width 13.4 % (11.5-14.5) Platelet Count 188 x10^3/uL (140-400) Sodium Level 139 mmol/L (136-145) Potassium Level 4.0 mmol/L (3.5-5.1) Chloride Level 103 mmol/L (98-107) Carbon Dioxide Level 26 mmol/L (21-32) Anion Gap 10 (6-14) Blood Urea Nitrogen 12 mg/dL (8-26) Creatinine 0.9 mg/dL (0.7-1.3) Estimated GFR (Cockcroft-Gault) 86.7 Glucose Level 221 mg/dL (70-99) Calcium Level 9.0 mg/dL (8.5-10.1) Test 02/25/19 09:45 02/25/19 14:00 02/25/19 17:26 02/25/19 21:02 Prothrombin Time 15.1 SEC (11.7-14.0) Prothromb Time International Ratio 1.2 (0.8-1.1) Activated Partial Thromboplast Time 30 SEC (24-38) Glucose (Fingerstick) 216 mg/dL (70-99) 225 mg/dL (70-99) 203 mg/dL (70-99) Test 02/26/19 07:37 Glucose (Fingerstick) 194 mg/dL (70-99) Laboratory Tests Test 02/25/19 14:00 02/25/19 17:26 02/25/19 21:02 02/26/19 07:37 Glucose (Fingerstick) 216 mg/dL (70-99) 225 mg/dL (70-99) 203 mg/dL (70-99) 194 mg/dL (70-99) Medications Current Medications Diltiazem HCl (Cardizem Iv Push) 20 mg 1X ONCE IVP Last administered on 02/22/19at 16:29; Start 02/22/19 at 15:45; Stop 02/22/19 at 19:18; Status DC Diltiazem HCl 125 mg/Dextrose 125 ml @ 10 mls/hr 1X ONCE IV ; Start 02/22/19 at 15:45; Stop 02/22/19 at 19:18; Status DC Amiodarone HCl 900 mg/Dextrose 518 ml @ 0 mls/hr CONT PRN IV SEE I/O RECORD Last administered on 02/22/19at 16:43; Start 02/22/19 at 16:30; Stop 02/22/19 at 16:43; Status DC Amiodarone HCl 150 mg/Dextrose 103 ml @ 618 mls/hr 1X ONCE IV Last administered on 02/22/19at 16:35; Start 02/22/19 at 16:15; Stop 02/22/19 at 19:18; Status DC Fentanyl Citrate (Fentanyl 2ml Vial) 50 mcg 1X ONCE IV Last administered on 02/22/19at 16:44; Start 02/22/19 at 17:00; Stop 02/22/19 at 19:18; Status DC Midazolam HCl (Versed) 5 mg 1X ONCE NS Last administered on 02/22/19at 17:41; Start 02/22/19 at 17:00; Stop 02/22/19 at 19:18; Status DC Sodium Chloride 1,000 ml @ 125 mls/hr 1X ONCE IV Last administered on 02/22/19at 17:42; Start 02/22/19 at 17:00; Stop 02/23/19 at 00:59; Status DC Midazolam HCl (Versed) 5 mg STK-MED ONCE .ROUTE ; Start 02/22/19 at 16:54; Stop 02/22/19 at 16:54; Status DC Amiodarone HCl 900 mg/Dextrose 518 ml @ 17 mls/hr CONT PRN IV SEE I/O RECORD Last administered on 02/22/19at 19:31; Start 02/23/19 at 17:00; Stop 02/23/19 at 17:00; Status DC Carvedilol (Coreg) 3.125 mg BIDWMEALS PO Last administered on 02/23/19at 14:27; Start 02/22/19 at 19:30; Stop 02/23/19 at 14:47; Status DC Furosemide (Lasix) 10 mg DAILY PO ; Start 02/23/19 at 09:00; Stop 02/23/19 at 14:47; Status DC Lisinopril (Prinivil) 20 mg QEVNG PO Last administered on 02/25/19at 18:01; Start 02/22/19 at 19:30 Rivaroxaban (Xarelto) 10 mg BID PO ; Start 02/23/19 at 09:00; Stop 02/22/19 at 23:17; Status DC Zolpidem Tartrate (Ambien) 5 mg PRN QHS PRN PO INSOMNIA Last administered on 02/25/19at 20:25; Start 02/22/19 at 19:45 Docusate Sodium (Colace) 100 mg PRN DAILY PRN PO CONSTIPATION; Start 02/22/19 at 19:45 Cetirizine HCl (ZyrTEC) 10 mg DAILY PO Last administered on 02/26/19 08:48; Start 02/22/19 at 22:15 Insulin Human Lispro (HumaLOG) 0-7 UNITS TIDWMEALS SQ Last administered on 02/23/19at 12:11; Start 02/23/19 at 08:00; Stop 02/23/19 at 12:24; Status DC Dextrose (Dextrose 50%-Water Syringe) 12.5 gm PRN Q15MIN PRN IV SEE COMMENTS; Start 02/22/19 at 22:00; Stop 02/23/19 at 12:25; Status DC Dextrose 250 ml PRN Q15MIN PRN IV SEE COMMENTS; Start 02/22/19 at 22:00; Status Cancel Aspirin (Ecotrin) 81 mg DAILYWBKFT PO Last administered on 02/26/19 08:48; Start 02/23/19 at 12:00 Levothyroxine Sodium (Synthroid) 75 mcg DAILY06 PO Last administered on 02/25/19 08:26; Start 02/23/19 at 15:30 Lisinopril (Prinivil) 20 mg DAILY PO ; Start 02/24/19 at 09:00; Stop 02/23/19 at 12:25; Status DC Metformin HCl (Glucophage) 500 mg BIDWMEALS PO Last administered on 02/23/19at 17:26; Start 02/23/19 at 17:00; Stop 02/24/19 at 11:54; Status DC Citalopram Hydrobromide (CeleXA) 20 mg DAILY PO Last administered on 02/26/19 08:48; Start 02/23/19 at 13:00 Gabapentin (Neurontin) 600 mg DAILY PO Last administered on 02/26/19at 08:48; Start 02/23/19 at 13:00 Glimepiride (Amaryl) 4 mg DAILY PO Last administered on 02/26/19at 08:48; Start 02/23/19 at 13:00 Metoprolol Succinate (Toprol Xl) 25 mg DAILY PO Last administered on 02/26/19at 08:48; Start 02/24/19 at 09:00 Insulin Human Lispro (HumaLOG) 0-9 UNITS TIDWMEALS SQ Last administered on 02/25/19at 18:01; Start 02/23/19 at 17:00 Dextrose (Dextrose 50%-Water Syringe) 12.5 gm PRN Q15MIN PRN IV SEE COMMENTS; Start 02/23/19 at 12:15 Dextrose 250 ml PRN Q15MIN PRN IV SEE COMMENTS; Start 02/23/19 at 12:15; Status UNV Perflutren Protein Type A Microsphe (Optison) 0.66 mg 1X ONCE IV Last administered on 02/23/19at 13:18; Start 02/23/19 at 13:00; Stop 02/23/19 at 13:06; Status DC Hydrochlorothiazide (Microzide) 12.5 mg DAILY PO Last administered on 02/26/19at 08:48; Start 02/24/19 at 09:00 Amiodarone HCl 900 mg/Dextrose 518 ml @ 0 mls/hr CONT PRN IV SEE I/O RECORD; Start 02/23/19 at 17:15; Stop 02/23/19 at 19:08; Status DC Amiodarone HCl 450 mg/Dextrose 259 ml @ 17.267 mls/ hr CONT PRN IV SEE I/O RECORD Last administered on 02/23/19at 19:46; Start 02/23/19 at 19:15; Stop 02/25/19 at 10:08; Status DC Amiodarone HCl (Cordarone) 400 mg DAILY PO Last administered on 02/26/19at 08:48; Start 02/23/19 at 20:00 Lidocaine HCl (Xylocaine-Mpf 1% 2ml Vial) 2 ml STK-MED ONCE .ROUTE ; Start 02/24/19 at 10:59; Stop 02/24/19 at 11:00; Status DC Iohexol (Omnipaque 300 Mg/ml) 100 ml STK-MED ONCE .ROUTE ; Start 02/24/19 at 10:59; Stop 02/24/19 at 11:00; Status DC Heparin Sodium/ Sodium Chloride 1,000 ml @ As Directed STK-MED ONCE .ROUTE ; Start 02/24/19 at 10:59; Stop 02/24/19 at 11:00; Status DC Fentanyl Citrate (Fentanyl 2ml Vial) 100 mcg STK-MED ONCE .ROUTE ; Start 02/24/19 at 11:22; Stop 02/24/19 at 11:22; Status DC Midazolam HCl (Versed) 5 mg STK-MED ONCE .ROUTE ; Start 02/24/19 at 11:22; Stop 02/24/19 at 11:22; Status DC Heparin Sodium (Porcine) (Heparin Sodium) 10,000 unit STK-MED ONCE .ROUTE ; Start 02/24/19 at 11:22; Stop 02/24/19 at 11:22; Status DC Verapamil HCl (Verapamil) 5 mg STK-MED ONCE .ROUTE ; Start 02/24/19 at 11:22; Stop 02/24/19 at 11:23; Status DC Nitroglycerin (Nitroglycerin) 200 mcg STK-MED ONCE .ROUTE ; Start 02/24/19 at 11:23; Stop 02/24/19 at 11:23; Status DC Nitroglycerin (Nitroglycerin) 200 mcg 1X ONCE IART Last administered on 02/24/19at 12:15; Start 02/24/19 at 12:00; Stop 02/24/19 at 12:01; Status DC Verapamil HCl (Verapamil) 2.5 mg 1X ONCE IART Last administered on 02/24/19at 12:15; Start 02/24/19 at 12:00; Stop 02/24/19 at 12:01; Status DC Heparin Sodium (Porcine) (Heparin Sodium) 2,500 unit 1X ONCE IART Last administered on 02/24/19at 12:15; Start 02/24/19 at 12:00; Stop 02/24/19 at 12:01; Status DC Heparin Sodium/ Sodium Chloride (HEPARIN for ARTERIAL LINE FLUSH) 1,000 unit 1X ONCE IART Last administered on 02/24/19at 12:15; Start 02/24/19 at 12:00; Stop 02/24/19 at 12:01; Status DC Heparin Sodium/ Sodium Chloride (HEPARIN for ARTERIAL LINE FLUSH) 1,000 unit 1X ONCE IART Last administered on 02/24/19at 12:15; Start 02/24/19 at 12:00; Stop 02/24/19 at 12:01; Status DC Midazolam HCl (Versed) 5 mg 1X ONCE IV Last administered on 02/24/19at 12:15; Start 02/24/19 at 12:00; Stop 02/24/19 at 12:01; Status DC Fentanyl Citrate (Fentanyl 2ml Vial) 100 mcg 1X ONCE IV Last administered on 02/24/19at 12:15; Start 02/24/19 at 12:00; Stop 02/24/19 at 12:01; Status DC Iohexol (Omnipaque 300 Mg/ml) 100 ml 1X ONCE IART Last administered on 02/24/19at 12:15; Start 02/24/19 at 12:00; Stop 02/24/19 at 12:01; Status DC Lidocaine HCl (Lidocaine 1% 20ml Vial) 20 ml 1X ONCE INJ ; Start 02/24/19 at 12:00; Stop 02/24/19 at 12:24; Status DC Info (CONTRAST GIVEN -- Rx MONITORING) 1 each PRN DAILY PRN MC SEE COMMENTS; Start 02/24/19 at 12:00; Stop 02/26/19 at 11:59 Metformin HCl (Glucophage) 500 mg BIDWMEALS PO ; Start 02/26/19 at 17:00 Lidocaine HCl (Xylocaine-Mpf 1% 2ml Vial) 2 ml 1X ONCE INJ Last administered on 02/24/19at 12:25; Start 02/24/19 at 12:30; Stop 02/24/19 at 12:31; Status DC Midazolam HCl (Versed) 5 mg 1X ONCE IV Last administered on 02/25/19at 12:56; Start 02/25/19 at 12:00; Stop 02/25/19 at 12:01; Status DC Fentanyl Citrate (Fentanyl 5ml Vial) 250 mcg 1X ONCE IV Last administered on 02/25/19at 12:56; Start 02/25/19 at 11:45; Stop 02/25/19 at 11:53; Status DC Lidocaine/ Epinephrine (LIDOCAINE 2%-EPI 1:100,000 multi-dose) 40 ml 1X ONCE IJ Last administered on 02/25/19at 12:56; Start 02/25/19 at 11:45; Stop 02/25/19 at 11:53; Status DC Bacitracin 50041 unit/Sodium Chloride 250 ml @ 0 mls/hr 1X ONCE IRR Last admin istered on 02/25/19at 12:56; Start 02/25/19 at 12:00; Stop 02/25/19 at 12:01; Status DC Cefazolin Sodium 3 gm/Dextrose 100 ml @ 200 mls/hr 1X ONCE IV Last administered on 02/25/19at 12:56; Start 02/25/19 at 12:00; Stop 02/25/19 at 12:29; Status DC Lidocaine/ Epinephrine (LIDOCAINE 2%-EPI 1:100,000 multi-dose) 20 ml STK-MED ONCE .ROUTE ; Start 02/25/19 at 11:51; Stop 02/25/19 at 11:52; Status DC Cefazolin Sodium/ Dextrose 50 ml @ 100 mls/hr 1X ONCE IV Last administered on 02/25/19at 18:01; Start 02/25/19 at 18:00; Stop 02/25/19 at 18:29; Status DC Ringer's Solution 1,000 ml @ 50 mls/hr Q20H IV ; Start 02/26/19 at 07:00; Stop 02/26/19 at 18:59 Active Scripts Active Reported Gabapentin 600 Mg Tablet 600 Mg PO HS Metoprolol ER-Hctz 25-12.5 mg (Metoprolol Succinate/Hctz) 1 Each Tab.er.24h 1 Each PO DAILY Xarelto (Rivaroxaban) 20 Mg Tablet 20 Mg PO DAILY Glimepiride 4 Mg Tablet 1 Tab PO DAILY Atorvastatin Calcium 80 Mg Tablet 1 Tab PO HS Escitalopram Oxalate 10 Mg Tablet 1 Tab PO HS Levothyroxine Sodium 75 Mcg Tablet 1 Tab PO DAILY Lisinopril 20 Mg Tablet 1 Tab PO QEVNG Metformin Hcl 500 Mg Tablet 500 Mg PO BIDWMEALS Vitals/I & O Vital Sign - Last 24 Hours 02/25/19 02/25/19 02/25/19 02/25/19 11:30 12:56 13:38 13:47 Temp 97.6 97.6 97.6 97.6 Pulse 76 65 72 Resp 24 18 18 18 B/P (MAP) 121/81 (94) 128/93 (105) Pulse Ox 96 98 94 94 O2 Delivery Room Air Nasal Cannula Room Air Room Air O2 Flow Rate 4.0 8/2902/25/19 02/25/19 02/25/19 13:50 14:05 14:20 14:35 Pulse 75 66 68 B/P (MAP) 128/93 (105) 123/80 (94) 127/79 (95) Pulse Ox 94 O2 Delivery Room Air Room Air 02/25/19 02/25/19 02/25/19 02/25/19 14:50 15:00 15:05 15:20 Temp 98.3 98.3 Pulse 68 70 66 62 Resp 16 B/P (MAP) 130/81 (97) 127/79 (95) 132/83 (99) 137/79 (98) Pulse Ox 93 O2 Delivery Room Air 02/25/19 02/25/19 02/25/19 02/25/19 15:35 15:50 16:05 16:20 Pulse 66 66 62 70 B/P (MAP) 129/82 (98) 121/76 (91) 115/80 (92) 104/70 (81) 02/25/19 02/25/19 02/25/19 02/25/19 16:35 16:50 17:05 17:20 Pulse 74 78 74 78 B/P (MAP) 136/83 (100) 125/85 (98) 127/93 (104) 130/91 (104) 02/25/19 02/25/19 02/25/19 02/25/19 17:35 17:50 18:01 18:05 Pulse 74 78 79 70 B/P (MAP) 137/90 (106) 149/91 (110) 137/90 144/94 (111) 02/25/19 02/25/19 02/25/19 02/25/19 18:20 18:50 20:00 22:30 Temp 97.6 97.6 97.6 97.6 Pulse 76 70 73 Resp 16 18 B/P (MAP) 125/74 (91) 116/73 (87) 111/63 (79) Pulse Ox 94 93 O2 Delivery Room Air Room Air Room Air 02/26/19 02/26/19 02/26/19 02/26/19 03:01 07:00 08:00 08:48 Temp 97.5 98.1 97.5 98.1 Pulse 81 79 81 Resp 22 17 B/P (MAP) 131/88 (102) 126/70 (88) 126/70 Pulse Ox 94 96 O2 Delivery Room Air Room Air Room Air 02/26/19 08:48 Pulse 58 B/P (MAP) 126/70 Intake and Output 02/25/19 02/25/19 02/26/19 14:59 22:59 06:59 Intake Total 30 ml 180 ml 400 ml Output Total 650 ml 900 ml 750 ml Balance -620 ml -720 ml -350 ml JULIEN KU MD Feb 26, 2019 10:30
[2019-02-26] MEDS ORDERED: PROPOFOL 20 ML IV ONE (10:34)
--- NOTE | 2019-02-26 11:01 | NUR ---
SS following up with discharge planning. No discharge needs noted at this time. SS will continue to follow for discharge planning.
--- NOTE | 2019-02-26 16:19 | PDOC ---
Provider Note Provider Note Pt. underwent successful DFT testing today. CXR poor quality image but stable interrogation of leads today. Ok to DC and f/u in our office in 2 weeks. Pls call with questions ALLISON LEWIS MD Feb 26, 2019 16:19
[2019-02-26] MEDS ORDERED: metFORMIN 500 MG TABLET PO SCH (17:00)
[2019-02-26] MEDS ORDERED: CETI10TA16 PO (17:01)
[2019-02-26] MEDS ORDERED: AMIO200T4 PO (17:03)
[2019-02-26] MEDS ORDERED: ATORVASTATIN CA80 MG PO (17:04)
[2019-02-26] MEDS ORDERED: ASPI-612 PO (17:05)
[2019-02-26] MEDS: LISINOPRIL 20 MG TABLET PO SCH (18:06)
--- NOTE | 2019-02-26 19:05 | NUR ---
Discharge Note: ALONSO GALEANO M 2 [facility] Discharge instructions and discharge home medications reviewed with Patient and a copy given. All questions have been answered and understanding verbalized. The following instructions and handouts were given: discharge instructions, ICD info, CHF info, A fib info Discontinued lines and drains: Peripheral IV intact. Patient discharged to Home or Self Care with Friend via [facility] at 1905. Called prescription of amiodarone into patient's pharmacy. Patient is going to follow up with PCP & Dr. Newberry.
--- NOTE | 2019-02-26 21:42 | PDOC3 ---
Discharge Summary Date of Admission: Feb 22, 2019 Date of Discharge: Feb 26, 2019 Follow-Up: 3-5 days Admitting Diagnosis comment: DISCHARGE DC NEW ONSET V-TACH GLobal hypokineses with EF 20-45% NOrmal coronaries s/p [facility] 02/24 remote alcohol abuse last drink 2016 SVT s/p inhospital cardioversion PErmanent a fib on OAC (eliquis) Acute on chronic systolic and diastolic HF. LVEDP 29 mm Hg Severe LV dysfunction. EF 20% c/w cardiomyopathy No significant coronary disease. Obesity, extreme morbid Hx CHF (currently compensated), MIld leg edema LEukocytosis, reactive non infectious;\ TRop elevation History of Present Illness History of Present Illness /s.p amio gtt AICD placement echo: EF 45%, EF at cath 20% <Conclusion> Left ventricle systolic function is mildly decreased. EF 45% There is mild global hypokinesis. The right ventricle is moderately dilated. RV Systolic function is mildly reduced. Doppler and Color-flow revealed mild to moderate mitral regurgitation. Doppler and Color Flow revealed mild tricuspid regurgitation. The PA pressure was estimated at 61 mm Hg. There is moderate pulmonary hypertension. PLAn: Successful insertion of a dual chamber [employer] Yazan MRI compatible ICD for secondary prevention of sudden cardiac and NICM/VT. 37 min pt exam, chart review,D/C PLANNING > 50% of time spent with exam, chart review, pt care coordination Vitals Vitals Vital Signs Date Time Temp Pulse Resp B/P (MAP) Pulse Ox O2 Delivery O2 Flow Rate FiO2 02/26/19 08:48 58 126/70 02/26/19 08:00 Room Air 02/26/19 07:00 98.1 17 96 98.1 02/25/19 12:56 4.0 Physical Exam General: Alert, Oriented X3, Cooperative, No acute distress Heart: Regular rate (SR with first degree AV block), Normal S1, Normal S2, Other (3/6 systolic murmur to LLS border) Lungs: Clear Abdomen: Normal bowel sounds, Soft, No tenderness, Other (obese) Extremities: No clubbing, No cyanosis, No edema Skin: No breakdown Labs LABS CORONARY ANGIOGRAPHY: Right and left coronary angiography was performed using a 6Fr TIG 4.0 catheter. Left ventricular end diastolic pressure was obtained with a pigtail catheter and pullback was performed after left ventriculography. All catheter exchanges and advancements were performed over a guidewire. CLOSURE: At case completion the right radial sheath was removed and a Terumo radial band was applied with 13 ml of air. COMPLICATIONS: The patient tolerated the procedure well and there were no immediate complications. FINDINGS: HEMODYNAMICS: LVEDP 29 mm Hg No gradient on LV to aortic pullback. AO: 128/78 LEFT VENTRICULOGRAM: EF20% There is severe global hypokinesis CORONARY ANGIOGRAPHY: LM is a large caliber vessel with normal angiographic appearance. LAD is a large caliber vessel with normal angiographic appearance. Ramus is a moderate caliber vessel with normal angiographic apeparance. LCx is a moderate caliber non-dominant vessel with normal angiographic appearance. OM1 is a moderate caliber vessel with normal angiographic appearance. RCA is a large caliber dominant vessel with normal angiographic appearance. RPDA and RPL are moderate caliber vessels with normal angiographic appearance. Conclusion 1. Acute on chronic systolic and diastolic HF. LVEDP 29 mm Hg 2. Severe LV dysfunction. EF 20% 3. No significant coronary disease. Recommendations 1. Will plan for ICD placement in the near future for secondary prevention of cardiac arrest due to VT 2. Continue aggressive risk factor modification. Signed by : Allison Lewis, Electronically Approved : 02/24/2019 12:22:22 DICTATED and SIGNED BY: ALLISON LEWIS MD DATE: 02/24/19 1216 EXAM Moderate Sedation time: 80 MINUTES Fluoro time: 6.0 min Dose: 114 Gycm2 HISTORY The Patient is a 58 year-old male with a history of VT and sudden IMPLANTED DEVICES After appropriate informed consent the patient was prepped and draped in usual sterile fashion. 30 mL of 2% lidocaine was infiltrated into the skin and subcutaneous tissues for local anesthesia. An incision was made over the left infraclavicular fossa and using blunt dissection and cautery a pocket was created. Venous access was obtained in the left subclavian vein and 7/6 Arabic sheaths were inserted. Subsequently, a [employer] Yazan bipolar active fixation right ventricular lead SN [id number] was advanced under fluoroscopic guidance and the tip was positioned in the right ventricular apex. Following this, a [employer] Yazan bipolar active fixation right atrial lead SN [id number] was placed in the right atrial appendage under fluoroscopy guidance. The leads were secured into place and were attached to a [employer]. Yazan dual-chamber ICD, SN [id number]. This was placed in the pocket that was subsequently closed in 3 layers. Hemostasis was secured. At the end of procedure, the right ventricular lead showed sensing amplitude of 11.7 mV, impedance of 580 ohms and a threshold of 0.75volts at 0.5 ms. The right atrial lead showed a sensing amplitude of 2.3 millivolts, impedance of 680 ohms and a threshold of 1.5 volts at0.5 ms. Patient tolerated the procedure well. There were no immediate complications. Settings: DDD, 60-130 CONCLUSION 1. Successful insertion of a dual chamber [employer] Yazan MRI compatible ICD for secondary prevention of sudden cardiac and NICM/VT. Signed by : Allison Lewis, Electronically Approved : 02/25/2019 14:09:14 FINAL DIAGNOSIS Problems Medical Problems: (1) Chest pain Status: Acute (2) HTN (hypertension) Status: Chronic (3) Hypothyroidism Status: Chronic (4) Morbid obesity Status: Chronic (5) Paroxysmal A-fib Status: Acute (6) Syncope Status: Acute (7) Uncontrolled diabetes mellitus Status: Acute (8) Ventricular tachycardia Status: Acute Brief Hospital Course Mr. Parsons is a 58 old [sex] who presented with [V-TACH , NEW ONSET ] CONDITION AT DISCHARGE: Improved Discharge Medications Current Medications Diltiazem HCl (Cardizem Iv Push) 20 mg 1X ONCE IVP Last administered on 02/22/19at 16:29; Start 02/22/19 at 15:45; Stop 02/22/19 at 19:18; Status DC Diltiazem HCl 125 mg/Dextrose 125 ml @ 10 mls/hr 1X ONCE IV ; Start 02/22/19 at 15:45; Stop 02/22/19 at 19:18; Status DC Amiodarone HCl 900 mg/Dextrose 518 ml @ 0 mls/hr CONT PRN IV SEE I/O RECORD Last administered on 02/22/19at 16:43; Start 02/22/19 at 16:30; Stop 02/22/19 at 16:43; Status DC Amiodarone HCl 150 mg/Dextrose 103 ml @ 618 mls/hr 1X ONCE IV Last administered on 02/22/19at 16:35; Start 02/22/19 at 16:15; Stop 02/22/19 at 19:18; Status DC Fentanyl Citrate (Fentanyl 2ml Vial) 50 mcg 1X ONCE IV Last administered on 02/22/19at 16:44; Start 02/22/19 at 17:00; Stop 02/22/19 at 19:18; Status DC Midazolam HCl (Versed) 5 mg 1X ONCE NS Last administered on 02/22/19at 17:41; Start 02/22/19 at 17:00; Stop 02/22/19 at 19:18; Status DC Sodium Chloride 1,000 ml @ 125 mls/hr 1X ONCE IV Last administered on 02/22/19at 17:42; Start 02/22/19 at 17:00; Stop 02/23/19 at 00:59; Status DC Midazolam HCl (Versed) 5 mg STK-MED ONCE .ROUTE ; Start 02/22/19 at 16:54; Stop 02/22/19 at 16:54; Status DC Amiodarone HCl 900 mg/Dextrose 518 ml @ 17 mls/hr CONT PRN IV SEE I/O RECORD Last administered on 02/22/19at 19:31; Start 02/23/19 at 17:00; Stop 02/23/19 at 17:00; Status DC Carvedilol (Coreg) 3.125 mg BIDWMEALS PO Last administered on 02/23/19at 14:27; Start 02/22/19 at 19:30; Stop 02/23/19 at 14:47; Status DC Furosemide (Lasix) 10 mg DAILY PO ; Start 02/23/19 at 09:00; Stop 02/23/19 at 14:47; Status DC Lisinopril (Prinivil) 20 mg QEVNG PO Last administered on 02/26/19at 18:12; Start 02/22/19 at 19:30; Stop 02/26/19 at 19:26; Status DC Rivaroxaban (Xarelto) 10 mg BID PO ; Start 02/23/19 at 09:00; Stop 02/22/19 at 23:17; Status DC Zolpidem Tartrate (Ambien) 5 mg PRN QHS PRN PO INSOMNIA Last administered on 02/25/19at 20:25; Start 02/22/19 at 19:45; Stop 02/26/19 at 19:26; Status DC Docusate Sodium (Colace) 100 mg PRN DAILY PRN PO CONSTIPATION; Start 02/22/19 at 19:45; Stop 02/26/19 at 19:26; Status DC Cetirizine HCl (ZyrTEC) 10 mg DAILY PO Last administered on 02/26/19 08:48; Start 02/22/19 at 22:15; Stop 02/26/19 at 19:26; Status DC Insulin Human Lispro (HumaLOG) 0-7 UNITS TIDWMEALS SQ Last administered on 02/23/19at 12:11; Start 02/23/19 at 08:00; Stop 02/23/19 at 12:24; Status DC Dextrose (Dextrose 50%-Water Syringe) 12.5 gm PRN Q15MIN PRN IV SEE COMMENTS; Start 02/22/19 at 22:00; Stop 02/23/19 at 12:25; Status DC Dextrose 250 ml PRN Q15MIN PRN IV SEE COMMENTS; Start 02/22/19 at 22:00; Status Cancel Aspirin (Ecotrin) 81 mg DAILYWBKFT PO Last administered on 02/26/19 08:48; Start 02/23/19 at 12:00; Stop 02/26/19 at 19:26; Status DC Levothyroxine Sodium (Synthroid) 75 mcg DAILY06 PO Last administered on 02/25/19at 08:26; Start 02/23/19 at 15:30; Stop 02/26/19 at 19:26; Status DC Lisinopril (Prinivil) 20 mg DAILY PO ; Start 02/24/19 at 09:00; Stop 02/23/19 at 12:25; Status DC Metformin HCl (Glucophage) 500 mg BIDWMEALS PO Last administered on 02/23/19at 17:26; Start 02/23/19 at 17:00; Stop 02/24/19 at 11:54; Status DC Citalopram Hydrobromide (CeleXA) 20 mg DAILY PO Last administered on 02/26/19 08:48; Start 02/23/19 at 13:00; Stop 02/26/19 at 19:26; Status DC Gabapentin (Neurontin) 600 mg DAILY PO Last administered on 02/26/19 08:48; Start 02/23/19 at 13:00; Stop 02/26/19 at 19:26; Status DC Glimepiride (Amaryl) 4 mg DAILY PO Last administered on 02/26/19at 08:48; Start 02/23/19 at 13:00; Stop 02/26/19 at 19:26; Status DC Metoprolol Succinate (Toprol Xl) 25 mg DAILY PO Last administered on 02/26/19at 08:48; Start 02/24/19 at 09:00; Stop 02/26/19 at 19:26; Status DC Insulin Human Lispro (HumaLOG) 0-9 UNITS TIDWMEALS SQ Last administered on 02/26/19at 18:12; Start 02/23/19 at 17:00; Stop 02/26/19 at 19:26; Status DC Dextrose (Dextrose 50%-Water Syringe) 12.5 gm PRN Q15MIN PRN IV SEE COMMENTS; Start 02/23/19 at 12:15; Stop 02/26/19 at 19:26; Status DC Dextrose 250 ml PRN Q15MIN PRN IV SEE COMMENTS; Start 02/23/19 at 12:15; Status UNV Perflutren Protein Type A Microsphe (Optison) 0.66 mg 1X ONCE IV Last adminis tered on 02/23/19at 13:18; Start 02/23/19 at 13:00; Stop 02/23/19 at 13:06; Status DC Hydrochlorothiazide (Microzide) 12.5 mg DAILY PO Last administered on 02/26/19at 08:48; Start 02/24/19 at 09:00; Stop 02/26/19 at 19:26; Status DC Amiodarone HCl 900 mg/Dextrose 518 ml @ 0 mls/hr CONT PRN IV SEE I/O RECORD; Start 02/23/19 at 17:15; Stop 02/23/19 at 19:08; Status DC Amiodarone HCl 450 mg/Dextrose 259 ml @ 17.267 mls/ hr CONT PRN IV SEE I/O RECORD Last administered on 02/23/19at 19:46; Start 02/23/19 at 19:15; Stop 02/25/19 at 10:08; Status DC Amiodarone HCl (Cordarone) 400 mg DAILY PO Last administered on 02/26/19at 08:48; Start 02/23/19 at 20:00; Stop 02/26/19 at 19:26; Status DC Lidocaine HCl (Xylocaine-Mpf 1% 2ml Vial) 2 ml STK-MED ONCE .ROUTE ; Start 02/24/19 at 10:59; Stop 02/24/19 at 11:00; Status DC Iohexol (Omnipaque 300 Mg/ml) 100 ml STK-MED ONCE .ROUTE ; Start 02/24/19 at 10:59; Stop 02/24/19 at 11:00; Status DC Heparin Sodium/ Sodium Chloride 1,000 ml @ As Directed STK-MED ONCE .ROUTE ; S tart 02/24/19 at 10:59; Stop 02/24/19 at 11:00; Status DC Fentanyl Citrate (Fentanyl 2ml Vial) 100 mcg STK-MED ONCE .ROUTE ; Start 02/24/19 at 11:22; Stop 02/24/19 at 11:22; Status DC Midazolam HCl (Versed) 5 mg STK-MED ONCE .ROUTE ; Start 02/24/19 at 11:22; Stop 02/24/19 at 11:22; Status DC Heparin Sodium (Porcine) (Heparin Sodium) 10,000 unit STK-MED ONCE .ROUTE ; Start 02/24/19 at 11:22; Stop 02/24/19 at 11:22; Status DC Verapamil HCl (Verapamil) 5 mg STK-MED ONCE .ROUTE ; Start 02/24/19 at 11:22; Stop 02/24/19 at 11:23; Status DC Nitroglycerin (Nitroglycerin) 200 mcg STK-MED ONCE .ROUTE ; Start 02/24/19 at 11:23; Stop 02/24/19 at 11:23; Status DC Nitroglycerin (Nitroglycerin) 200 mcg 1X ONCE IART Last administered on 02/24/19at 12:15; Start 02/24/19 at 12:00; Stop 02/24/19 at 12:01; Status DC Verapamil HCl (Verapamil) 2.5 mg 1X ONCE IART Last administered on 02/24/19at 12:15; Start 02/24/19 at 12:00; Stop 02/24/19 at 12:01; Status DC Heparin Sodium (Porcine) (Heparin Sodium) 2,500 unit 1X ONCE IART Last administered on 02/24/19at 12:15; Start 02/24/19 at 12:00; Stop 02/24/19 at 12:01; Status DC Heparin Sodium/ Sodium Chloride (HEPARIN for ARTERIAL LINE FLUSH) 1,000 unit 1X ONCE IART Last administered on 02/24/19at 12:15; Start 02/24/19 at 12:00; Stop 02/24/19 at 12:01; Status DC Heparin Sodium/ Sodium Chloride (HEPARIN for ARTERIAL LINE FLUSH) 1,000 unit 1X ONCE IART Last administered on 02/24/19at 12:15; Start 02/24/19 at 12:00; Stop 02/24/19 at 12:01; Status DC Midazolam HCl (Versed) 5 mg 1X ONCE IV Last administered on 02/24/19 12:15; Start 02/24/19 at 12:00; Stop 02/24/19 at 12:01; Status DC Fentanyl Citrate (Fentanyl 2ml Vial) 100 mcg 1X ONCE IV Last administered on 02/24/19at 12:15; Start 02/24/19 at 12:00; Stop 02/24/19 at 12:01; Status DC Iohexol (Omnipaque 300 Mg/ml) 100 ml 1X ONCE IART Last administered on 02/24/19at 12:15; Start 02/24/19 at 12:00; Stop 02/24/19 at 12:01; Status DC Lidocaine HCl (Lidocaine 1% 20ml Vial) 20 ml 1X ONCE INJ ; Start 02/24/19 at 12:00; Stop 02/24/19 at 12:24; Status DC Info (CONTRAST GIVEN -- Rx MONITORING) 1 each PRN DAILY PRN MC SEE COMMENTS; Start 02/24/19 at 12:00; Stop 02/26/19 at 11:59; Status DC Metformin HCl (Glucophage) 500 mg BIDWMEALS PO Last administered on 02/26/19at 18:12; Start 02/26/19 at 17:00; Stop 02/26/19 at 19:26; Status DC Lidocaine HCl (Xylocaine-Mpf 1% 2ml Vial) 2 ml 1X ONCE INJ Last administered on 02/24/19at 12:25; Start 02/24/19 at 12:30; Stop 02/24/19 at 12:31; Status DC Midazolam HCl (Versed) 5 mg 1X ONCE IV Last administered on 02/25/19at 12:56; Start 02/25/19 at 12:00; Stop 02/25/19 at 12:01; Status DC Fentanyl Citrate (Fentanyl 5ml Vial) 250 mcg 1X ONCE IV Last administered on 02/25/19at 12:56; Start 02/25/19 at 11:45; Stop 02/25/19 at 11:53; Status DC Lidocaine/ Epinephrine (LIDOCAINE 2%-EPI 1:100,000 multi-dose) 40 ml 1X ONCE IJ Last administered on 02/25/19at 12:56; Start 02/25/19 at 11:45; Stop 02/25/19 at 11:53; Status DC Bacitracin 77388 unit/Sodium Chloride 250 ml @ 0 mls/hr 1X ONCE IRR Last administered on 02/25/19at 12:56; Start 02/25/19 at 12:00; Stop 02/25/19 at 12:01; Status DC Cefazolin Sodium 3 gm/Dextrose 100 ml @ 200 mls/hr 1X ONCE IV Last administered on 02/25/19at 12:56; Start 02/25/19 at 12:00; Stop 02/25/19 at 12:29; Status DC Lidocaine/ Epinephrine (LIDOCAINE 2%-EPI 1:100,000 multi-dose) 20 ml STK-MED ONCE .ROUTE ; Start 02/25/19 at 11:51; Stop 02/25/19 at 11:52; Status DC Cefazolin Sodium/ Dextrose 50 ml @ 100 mls/hr 1X ONCE IV Last administered on 02/25/19at 18:01; Start 02/25/19 at 18:00; Stop 02/25/19 at 18:29; Status DC Ringer's Solution 1,000 ml @ 50 mls/hr Q20H IV ; Start 02/26/19 at 07:00; Stop 02/26/19 at 18:59; Status DC Propofol 20 ml @ As Directed STK-MED ONCE IV ; Start 02/26/19 at 10:34; Stop 02/26/19 at 10:35; Status DC Active Scripts Active Reported Aspirin Ec (Aspirin) 81 Mg Tablet.dr 1 Tab PO DAILY Amiodarone Hcl 200 Mg Tablet 400 Mg PO DAILY Cetirizine Hcl 10 Mg Tablet 1 Tab PO DAILY Gabapentin 600 Mg Tablet 600 Mg PO HS Metoprolol ER-Hctz 25-12.5 mg (Metoprolol Succinate/Hctz) 1 Each Tab.er.24h 1 Each PO DAILY Xarelto (Rivaroxaban) 20 Mg Tablet 20 Mg PO DAILY Glimepiride 4 Mg Tablet 1 Tab PO DAILY Atorvastatin Calcium 80 Mg Tablet 1 Tab PO HS Escitalopram Oxalate 10 Mg Tablet 1 Tab PO HS Levothyroxine Sodium 75 Mcg Tablet 1 Tab PO DAILY Lisinopril 20 Mg Tablet 1 Tab PO QEVNG Metformin Hcl 500 Mg Tablet 500 Mg PO BIDWMEALS Vital Signs Vital Signs Date Time Temp Pulse Resp B/P (MAP) Pulse Ox O2 Delivery O2 Flow Rate FiO2 02/26/19 18:12 171/89 02/26/19 15:54 76 02/26/19 15:00 97.8 16 95 Nasal Cannula 6.0 97.8 Labs Laboratory Tests Test 02/25/19 04:50 02/25/19 08:18 02/25/19 09:45 02/25/19 14:00 White Blood Count 9.7 x10^3/uL (4.0-11.0) Red Blood Count 4.79 x10^6/uL (4.30-5.70) Hemoglobin 14.3 g/dL (13.0-17.5) Hematocrit 42.7 % (39.0-53.0) Mean Corpuscular Volume 89 fL (79-100) Mean Corpuscular Hemoglobin 30 pg (25-35) Mean Corpuscular Hemoglobin Concent 34 g/dL (31-37) Red Cell Distribution Width 13.4 % (11.5-14.5) Platelet Count 188 x10^3/uL (140-400) Sodium Level 139 mmol/L (136-145) Potassium Level 4.0 mmol/L (3.5-5.1) Chloride Level 103 mmol/L (98-107) Carbon Dioxide Level 26 mmol/L (21-32) Anion Gap 10 (6-14) Blood Urea Nitrogen 12 mg/dL (8-26) Creatinine 0.9 mg/dL (0.7-1.3) Estimated GFR (Cockcroft-Gault) 86.7 Glucose Level 221 mg/dL (70-99) Calcium Level 9.0 mg/dL (8.5-10.1) Glucose (Fingerstick) 197 mg/dL (70-99) 216 mg/dL (70-99) Prothrombin Time 15.1 SEC (11.7-14.0) Prothromb Time International Ratio 1.2 (0.8-1.1) Activated Partial Thromboplast Time 30 SEC (24-38) Test 02/25/19 17:26 02/25/19 21:02 02/26/19 07:37 02/26/19 12:29 Glucose (Fingerstick) 225 mg/dL (70-99) 203 mg/dL (70-99) 194 mg/dL (70-99) 194 mg/dL (70-99) Test 02/26/19 17:50 Glucose (Fingerstick) 238 mg/dL (70-99) Laboratory Tests Test 02/26/19 07:37 02/26/19 12:29 02/26/19 17:50 Glucose (Fingerstick) 194 mg/dL (70-99) 194 mg/dL (70-99) 238 mg/dL (70-99) Allergies Allergies Coded Allergies Type Severity Reaction Last Updated Verified latex Allergy Intermediate Rash,skin tear off 08/28/16 Yes Disposition/Orders: D/C to Home Patient Instructions D/C PLANNING 37 MIN JULIEN KU MD Feb 26, 2019 21:42
--- NOTE | 2019-02-26 21:43 | DISCH ---
DISCHARGE INSTRUCTIONS Condition on Discharge Condition on Discharge: Guarded Activity After Discharge Activity Instructions for Disc: Activity as tolerated, Avoid exertion, Other, see below Bathing Instructions: No Tub Bath until see Lifting Instructions after Dis: No heavy lifting, No pulling or pushing, Do not lift >10 pounds Driving Instructions after Dis: Do not drive Weight Bearing Status after Di: No restrictions Diet after Discharge Diet after Discharge: Cardiac, Diabetic No Calorie Level Diet Texture: Regular Liquid Texture: Thin Liquid Swallowing Supervision: None needed Wound Incision Care Wound/Incision Care: Keep wound/cast CDI, Other, see below Other wound/incision instructi: let steri strips fall off naturally Checks after Discharge Checks after discharge: Check blood press - daily, Check blood sugar, ac/hs, Check your Temp as needed, Weigh Yourself Daily Contacting the DRBuck after DC Call your doctor for: If your condition worsens Follow-Up Follow up with: Dr. Newberry (cardiology) for wound check on Fri. 2018 at 10:15 Follow Up With: PCP in 1-[address] Leos [phone] JULIEN KU MD Feb 26, 2019 21:43
== END 2019-02-26 19:05 | disposition home or self-care (01) | DRG 224 ==
LOC: ER 15:33 → 1 WEST ICU 16:20 → 2 SOUTH 02-25 13:36
PROVIDERS: ADMIT Internal Medicine; ATTEND Internal Medicine
PROC: 5A2204Z Restoration of Cardiac Rhythm, Single (ICD-10-PCS; principal; 2019-02-22)
PROC: 4A023N7 Measurement of Cardiac Sampling and Pressure, Left Heart, Percutaneous Approach (ICD-10-PCS; 2019-02-24)
PROC: B2151ZZ Fluoroscopy of Left Heart using Low Osmolar Contrast (ICD-10-PCS; 2019-02-24)
PROC: B2111ZZ Fluoroscopy of Multiple Coronary Arteries using Low Osmolar Contrast (ICD-10-PCS; 2019-02-24)
PROC: 0JH608Z Insertion of Defibrillator Generator into Chest Subcutaneous Tissue and Fascia, Open Approach (ICD-10-PCS; 2019-02-25)
PROC: 02HK3KZ Insertion of Defibrillator Lead into Right Ventricle, Percutaneous Approach (ICD-10-PCS; 2019-02-25)
PROC: 02H63KZ Insertion of Defibrillator Lead into Right Atrium, Percutaneous Approach (ICD-10-PCS; 2019-02-25)
DX: I47.2 Ventricular tachycardia (principal); I50.43 Acute on chronic combined systolic (congestive) and diastolic (congestive) heart failure; Z68.43 Body mass index [BMI] 50.0-59.9, adult; I42.9 Cardiomyopathy, unspecified; I48.0 Paroxysmal atrial fibrillation; E03.9 Hypothyroidism, unspecified; E11.65 Type 2 diabetes mellitus with hyperglycemia; E66.01 Morbid (severe) obesity due to excess calories; E78.00 Pure hypercholesterolemia, unspecified; E78.5 Hyperlipidemia, unspecified; M19.90 Unspecified osteoarthritis, unspecified site; G47.33 Obstructive sleep apnea (adult) (pediatric); I11.0 Hypertensive heart disease with heart failure; F41.9 Anxiety disorder, unspecified; I08.1 Rheumatic disorders of both mitral and tricuspid valves; K04.7 Periapical abscess without sinus; I27.20 Pulmonary hypertension, unspecified; R79.89 Other specified abnormal findings of blood chemistry; I44.0 Atrioventricular block, first degree; D72.829 Elevated white blood cell count, unspecified; Z79.01 Long term (current) use of anticoagulants; Z79.899 Other long term (current) drug therapy; Z95.810 Presence of automatic (implantable) cardiac defibrillator; Z87.891 Personal history of nicotine dependence; Z91.040 Latex allergy status; Z82.3 Family history of stroke; Z82.49 Family history of ischemic heart disease and other diseases of the circulatory system
CPT/HCPCS: 33249; 36415; 70450; 71045; 80048; 80053; 80061; 82550; 82962; 83036; 83690; 83735; 83880; 84439; 84443; 84481; 84484; 85025; 85027; 85379; 85610; 85730; 92960; 93005; 93458; 96365; 96366; 96375; 99152; 99153; 99292; C1721; C1769; C1892; C1895; C1898; C8929; J0282; J0690; J0696; J1644; J1815; J2250; J2704; J3010; J3490; J7030; J7050; Q9956; Q9967; 99291-25; G0378

== ENCOUNTER → 2019-06-10 | Day surgery (SDC) | payer MEDICAID ==
[~2019-06-10] MED LIST changes: +AMIO200T4 PO; +ASPI-612 PO; +ATORVASTATIN CA80 MG PO; +CETI10TA16 PO; +ESCITALOPRAM OX10 MG PO; +GABA600T7 PO; -GLIM1TAB2 PO; +GLIM1TAB3 PO; +GLIM4TAB4 PO; +HYDROmorphone 2 MG/ML VIAL IV PRN; +INSULIN LISPRO 100 UNIT/ML 3ML VIAL for OP,RR ONLY. SQ PRN; +IV RINGERS,LACTATED 1000ML 1,000 ML IV SCH; +METO-239 PO; +METO1TAB31 PO; +MORPHINE SULFATE 2 MG/ML VIAL. IV PRN; +PROCHLORPERAZINE 10 MG/2 ML VIAL. IV PRN; +PROPOFOL 20 ML IV ONE; +RIVA20TA2 PO; +fentaNYL PF VIAL 100 MCG/2 ML VIAL IV PRN
--- NOTE | 2019-06-10 10:19 | EKG ---
[facility] [address] [place] [address] Test Date: 2019-06-10 Test Time: 10:16:21 Pat Name: ALONSO GALEANO Department: Room: Gender: M Sizing Machine Tender: : 1960 Requested By: ALLISON LEWIS Order Number: [id number] Reading MD: Measurements Intervals [place] Rate: 60 P: IA: QRS: -81 QRSD: 162 T: 116 QT: 550 QTc: 556 Interpretive Statements REGULAR RHYTHM, NO P WAVE FOUND ABNORMAL LEFT AXIS DEVIATION NON SPECIFIC INTRAVENTRICULAR BLOCK ABNORMAL ECG RI6.01 Compared to ECG 02/24/2019 14:49:28 Left-axis deviation now present Intraventricular conduction delay no longer present
[2019-06-10 10:23] LABS: CALCIUM 9.2 mg/dL (8.5-10.1); CREATININE 1.4 mg/dL (0.7-1.3); GFR 51.9; POTASSIUM 4.3 mmol/L (3.5-5.1)
[2019-06-10 10:26] LABS: BASO # 0.1 x10^3/uL (0.0-0.2); BASO % 1 % (0-3); EOS # 0.2 x10^3/uL (0.0-0.7); EOS % 2 % (0-3); HEMATOCRIT 42.2 % (39.0-53.0); HEMOGLOBIN 13.9 g/dL (13.0-17.5); LYMPH % 25 % (24-48); MEAN CORPUSCULAR HEMOGLOBIN 30 pg (25-35); MEAN CORPUSCULAR HGB CONC 33 g/dL (31-37); MEAN CORPUSCULAR VOLUME 91 fL (79-100); MONO # 0.9 x10^3/uL (0.0-1.1); MONO % 11 % (0-9); NEUT % 61 % (31-73); PLATELET COUNT 253 x10^3/uL (140-400); RED BLOOD COUNT 4.61 x10^6/uL (4.30-5.70); RED CELL DISTRIBUTION WIDTH 14.1 % (11.5-14.5); WHITE BLOOD COUNT 8.2 x10^3/uL (4.0-11.0)
[2019-06-10 10:34] LABS: PROTHROMBIN TIME PATIENT 24.6 SEC (11.7-14.0)
--- NOTE | 2019-06-10 11:11 | EKG ---
[facility] [address] [place] [address] Test Date: 2019-06-10 Test Time: 11:07:31 Pat Name: ALONSO GALEANO Department: Room: Gender: M Grant Writer: THOMAS : 1960 Requested By: ALLISON LEWIS Order Number: [id number] Reading MD: Measurements Intervals [place] Rate: 61 P: [place]: QRS: -63 QRSD: 206 T: 112 QT: 542 QTc: 553 Interpretive Statements IRREGULAR RHYTHM, NO P-WAVE FOUND ABNORMAL LEFT AXIS DEVIATION LOW LIMB LEAD VOLTAGE NON SPECIFIC INTRAVENTRICULAR BLOCK QRS(T) CONTOUR ABNORMALITY CONSISTENT WITH INFERIOR INFARCT PROBABLY OLD ABNORMAL ECG RI6.02 Compared to ECG 02/24/2019 14:49:28 Left-axis deviation now present Myocardial infarct finding now present Intraventricular conduction delay no longer present
[2019-06-10 12:00] VITALS: BP 105/70
--- NOTE | 2019-06-14 08:20 | PDOC4 ---
PROCEDURE Procedure Late entry for 06/10/2019 Indication: Afib with RVR Consent: The patient provided verbal and written informed consent for this procedure. Pre-Medication: [] Procedure: The patient was placed in the supine position and the chest area was exposed. The cardioversion pads were applied in the standard manner and configuration. Initial attempts to convert the patient with his own ICD were unsuccessful. The defibrillator was set on the [DEFIB MODE:] mode, synchronized and charged to [360] joules. A charge was then delivered which resulted in [Sinus Rhythm/apaced). The patient tolerated the procedure well. Complications: none. [] ALLISON LEWIS MD Jun 14, 2019 08:20
== END ==
LOC: SURG 09:05
PROVIDERS: ATTEND Internal Medicine Cardiovascular Disease
DX: I48.91 Unspecified atrial fibrillation (principal); E66.01 Morbid (severe) obesity due to excess calories; I10 Essential (primary) hypertension; E78.00 Pure hypercholesterolemia, unspecified; E11.9 Type 2 diabetes mellitus without complications; E03.9 Hypothyroidism, unspecified; F41.9 Anxiety disorder, unspecified; Z95.0 Presence of cardiac pacemaker; Z68.43 Body mass index [BMI] 50.0-59.9, adult; Z72.89 Other problems related to lifestyle; Z79.84 Long term (current) use of oral hypoglycemic drugs
CPT/HCPCS: 36415; 80048; 85025; 85610; 92960; 93005; J2704

== ENCOUNTER 2019-07-27 07:07 | Observation (INO) | payer MEDICAID ==
[~2019-07-27] VITALS: Ht 180.3 cm; Wt 154.7 kg
[2019-07-27] VITALS (13 sets, daily range): BP systolic 98–130; BP diastolic 50–86
[~2019-07-27 07:07] MED LIST changes: -GLIM1TAB3 PO; +GLIM1TAB7 PO; -GLIM4TAB4 PO; +GLIM4TAB8 PO; -HYDROmorphone 2 MG/ML VIAL IV PRN; -INSULIN LISPRO 100 UNIT/ML 3ML VIAL for OP,RR ONLY. SQ PRN; -IV RINGERS,LACTATED 1000ML 1,000 ML IV SCH; -MORPHINE SULFATE 2 MG/ML VIAL. IV PRN; -PROCHLORPERAZINE 10 MG/2 ML VIAL. IV PRN; -PROPOFOL 20 ML IV ONE; -fentaNYL PF VIAL 100 MCG/2 ML VIAL IV PRN
[2019-07-27] MEDS ORDERED: ceFAZolin SODIUM 3 GM in IV DEXTROSE 5% 100ML 100 ML IV ONE ×2 (07:15→14:30)
[2019-07-27] MEDS ORDERED: BACITRACIN 50,000 UNIT in IV NORMAL SALINE 250ML 250 ML IRR ONE (07:15)
--- NOTE | 2019-07-27 07:47 | EKG ---
[facility] [address] [place] [address] Test Date: 2019-07-27 Test Time: 07:29:20 Pat Name: ALONSO GALEANO Department: Room: Gender: M Outreach Educator: : 1960 Requested By: SEBLE VASQUEZ Order Number: [id number] Reading MD: Measurements Intervals [place] Rate: 67 P: 0 CA: 226 QRS: -76 QRSD: 220 T: 105 QT: 508 QTc: 540 Interpretive Statements SINUS RHYTHM VENTRICULAR PREMATURE COMPLEX(ES) ATRIAL PREMATURE COMPLEX(ES) PROLONGED CA INTERVAL ABNORMAL LEFT AXIS DEVIATION LOW LIMB LEAD VOLTAGE NON SPECIFIC INTRAVENTRICULAR BLOCK QRS(T) CONTOUR ABNORMALITY CONSISTENT WITH INFERIOR INFARCT PROBABLY OLD ABNORMAL ECG RI6.02 No previous ECG available for comparison
[2019-07-27 07:48] LABS: HEMATOCRIT 43.7 % (39.0-53.0); HEMOGLOBIN 14.5 g/dL (13.0-17.5); RED BLOOD COUNT 4.87 x10^6/uL (4.30-5.70); RED CELL DISTRIBUTION WIDTH 13.7 % (11.5-14.5); WHITE BLOOD COUNT 8.4 x10^3/uL (4.0-11.0)
[2019-07-27 07:58] LABS: PROTHROMBIN TIME PATIENT 16.8 SEC (11.7-14.0)
[2019-07-27 08:05] LABS: CALCIUM 9.1 mg/dL (8.5-10.1); GFR 76.5; POTASSIUM 4.3 mmol/L (3.5-5.1)
[2019-07-27] MEDS ORDERED: MULT-246 PO (08:05)
[2019-07-27] MEDS ORDERED: FLUO20CA20 PO (08:05)
[2019-07-27] MEDS ORDERED: MIDAZOLAM HCL/PF 5 MG/5 ML VIAL. ONE (08:26)
[2019-07-27] MEDS ORDERED: fentaNYL PF VIAL 250 MCG/5 ML VIAL ONE (08:27)
[2019-07-27] MEDS ORDERED: LIDOCAINE 2%/EPI 1:100,000 20 ML VIAL. ONE (08:29)
[2019-07-27] MEDS ORDERED: IOHEXOL 300 MG/ML 100ML VIAL. ONE (08:30)
[2019-07-27] MEDS ORDERED: fentaNYL PF VIAL 250 MCG/5 ML VIAL IV ONE (09:30)
[2019-07-27] MEDS ORDERED: MIDAZOLAM HCL/PF 5 MG/5 ML VIAL. IV ONE (09:30)
[2019-07-27] MEDS ORDERED: LIDOCAINE 2%/EPI 1:100,000 20 ML VIAL. IJ ONE (09:30)
[2019-07-27] MEDS ORDERED: IOHEXOL 300 MG/ML 100ML VIAL. IART ONE (09:30)
[2019-07-27] MEDS ORDERED: fentaNYL PF VIAL 100 MCG/2 ML VIAL ONE (11:10)
[2019-07-27] MEDS ORDERED: fentaNYL PF VIAL 100 MCG/2 ML VIAL IV ONE (11:15)
[2019-07-27] MEDS ORDERED: oxyCODONE/APAP 5/325 1 TAB TABLET PO PRN (11:45)
[2019-07-27] MEDS ORDERED: NO ANTICOAGULANT THERAPY. MC PRN (11:45)
[2019-07-27] MEDS ORDERED: ACETAMINOPHEN 325 MG TABLET. PO PRN (11:45)
--- NOTE | 2019-07-27 11:45 | PDOC ---
MODERATE SEDATION ASSESSMENT RISKS/ALTERNATIVES Risks/Alternatives Risks and alternatives of this type of sedation and procedure discussed with: RISK/ALTERNATIVES: Patient H & P ON CHART H & P H & P on chart and reviewed for co-morbid conditions and appropriate labs. H&P ON CHART: Yes STATUS PREG STATUS ASSESSED: N/A MEDS/ALLERGIES REVIEWED Meds/Allergies Reviewed Medications and Allergies including time and route of recently administered narcotics and sedatives. MEDS/ALLERGIES REVIEWED: Yes ASA RATING ASA RATING: III AIRWAY ASSESSMENT Airway Assessment Airway patency, oral function limitations, presence of caps, crowns, dentures, partials, and ability to extend neck assessed. AIRWAY ASSESSMENT: Yes MALLAMPATI SCORE MALLAMPATI SCORE: II PRE-SEDATION ASSESSMENT PRE-SEDATION ASSESSMENT: Yes SEBLE VASQUEZ MD Jul 27, 2019 11:44
--- NOTE | 2019-07-27 11:57 | CARD ---
MR#: [id number] Date of Study: 07/27/2019 Ordering Physician: SEBLE CHAVARRIA, Referring Physician: SEBLE CHAVARRIA, Tech: APPROVED REPORT EXAM Successful [employer] Yazan's/Lee dual chamber AICD upgrade to Biventricular ICD/HARDWOOD SAWYER-D Sedation Time: 160 minutes Dose: 489.44 Gycm2 Fluoro Time: 32.9 minutes Contrast: 40 mL omipaque 300 INDICATIONS Cardiac resynchronization therapy in a patient with Severe nonischemic cardio myopathy, chronic systo lic heart failure, LVEF 25% needing right ventricular pacing more than 50% of the time. IMPLANTED DEVICES After explaining the risks, benefits and alternative options, informed consent was obtained from arielle ent. Patient was brought to the cardiac [facility] and his left chest and shoulder were prepped and veronica ped in the usual fashion. 20 mL of 2% lidocaine was infiltrated into the skin and subcutaneous tissue s for local anesthesia. An incision was made over the previous scar in the left infraclavicular fossa and using blunt dissection and cautery, the pocket was opened, capsule exposed and opened and the ge nerator removed from the pocket. The right atrial and right ventricle leads were interrogated and fou nd to be functioning well. Venous access was obtained in the left subclavian vein and 9 Kazakh coronary sinus sheath was inserte d. With the help of contrast injections in the right atrium using ANDRES 2 catheter, the coronary sinus ostium was engaged and the sheath advanced into the CS. With the balloon tip catheter inflated, a ve nogram was obtained to identify the appropriate cardiac vein for placement of the left ventricular le ad. The middle cardiac vein was engaged with Mad Mimi's inner catheter and a 0.014 inch grand slam wire was advanced. A [employer]. Yazan's left ventricular lead model 1458Q/86, serial number [id number] was advance d under fluoroscopy guidance and the tip was positioned in the middle cardiac vein. The leads were se cured into place and along with the RA and RV leads were attached percent juice biventricular ICD/HARDWOOD SAWYER -D generator model [id number], serial number [id number]. This was then placed in the pocket that was sub sequently closed in 3 layers. Hemostasis was secured. The right atrial lead showed a sensing amplitude of 5 mV, impedance of 560 ohms and a threshold of 0. 75 V. The right ventricular lead showed a sensing amplitude of 9 mV, impedance of 4 and 80 ohms and a threshold of 1.5 was. The left ventricular lead showed impedance of 590 ohms and a threshold of 2.0 V. Patient tolerated the procedure well. There were no immediate complications. CONCLUSION Successful [employer]. Yazan's/Lee dual-chamber AICD upgrade to biventricular ICD/HARDWOOD SAWYER-D for cardiac resynch ronization therapy Signed by : Seble Chavarria, Electronically Approved : 07/27/2019 11:56:32
--- NOTE | 2019-07-27 12:22 | RAD ---
EXAM: Chest, single view. HISTORY: Pacemaker placement. COMPARISON: 05/20/2019 FINDINGS: A frontal view of the chest obtained. There is a left cardiac pacemaker with 3 leads overlying expected position. There is stable prominent cardiac silhouette. There is no consolidation, pleural effusion or pneumothorax. IMPRESSION: 1. Cardiac pacemaker overlying expected position. 2. No acute thoracic finding. Electronically signed by: Kallie Lawrence MD (07/27/2019 12:19 PM) [facility]
--- NOTE | 2019-07-27 19:05 | NUR ---
Pt in bed assessment completed vss poc explained pt denied pain but c/o jiménez will medicate with tylenol. Call light in reach will resume care and continue to monitor pt.
[2019-07-27] MEDS ORDERED: ZOLPIDEM 5 MG TABLET. PO PRN (19:30)
[2019-07-27] MEDS ORDERED: LISINOPRIL 20 MG TABLET PO SCH (20:00)
[2019-07-27] MEDS ORDERED: FLUoxetine HCL 20 MG CAPSULE PO SCH (20:00)
[2019-07-27] MEDS ORDERED: AMIODARONE HCL 200 MG TABLET. PO SCH (20:00)
[2019-07-27] MEDS ORDERED: METOPROLOL SUCC 24HR ER 25 MG TAB.ER.24H. PO SCH (21:00)
[2019-07-27] MEDS ORDERED: ATORVASTATIN CALCIUM 40 MG TABLET. PO SCH (21:00)
[2019-07-28 03:00] VITALS: BP 97/59
[2019-07-28] MEDS ORDERED: LEVOTHYROXINE 75 MCG TABLET PO SCH (06:00)
[2019-07-28 07:00] VITALS: BP 138/66
[2019-07-28] MEDS ORDERED: MULTIVITAMIN with MINERAL TABLET. PO SCH (09:00)
--- NOTE | 2019-07-28 09:59 | RAD ---
EXAM: Chest, 2 views. HISTORY: Pacemaker placement. COMPARISON: 07/27/2019 FINDINGS: 2 views of the chest are obtained. There is a left cardiac pacemaker defibrillator with leads unchanged in position. There is no pneumothorax. There is cardiomegaly. There is suspected interstitial prominence due to atelectasis. There is no consolidation. IMPRESSION: 1. Cardiac pacemaker defibrillator with leads unchanged in position. 2. Stable cardiomegaly and suspected atelectasis. Electronically signed by: Kallie Lawrence MD (07/28/2019 9:56 AM) [facility] [place]
[2019-07-28 11:00] VITALS: BP 162/90
--- NOTE | 2019-07-28 11:28 | PDOC3 ---
CHRISTIAN MORROW HAND COMPOSITOR 07/28/19 1128: Discharge Summary Visit Information Date of Admission: Jul 27, 2019 Date of Discharge: Jul 28, 2019 Admitting Diagnosis: Severe NICM, needing resynchronization therapy Final Diagnosis Hx of VT, NICM. S/P conversion to TOW PICKER-D Bi-V pacing, Hx of PAFIB Brief Hospital Course Allergies Allergies Coded Allergies Type Severity Reaction Last Updated Verified latex Allergy Intermediate Rash,skin tear off 06/08/19 Yes Vital Signs Vital Signs Date Time Temp Pulse Resp B/P (MAP) Pulse Ox O2 Delivery O2 Flow Rate FiO2 07/28/19 08:00 Room Air 07/28/19 07:00 98.0 63 18 138/66 (90) 93 98.0 07/27/19 19:05 2.0 Lab Results Laboratory Tests Test 07/27/19 07:40 07/27/19 17:01 07/27/19 20:31 07/28/19 07:47 White Blood Count 8.4 x10^3/uL (4.0-11.0) Red Blood Count 4.87 x10^6/uL (4.30-5.70) Hemoglobin 14.5 g/dL (13.0-17.5) Hematocrit 43.7 % (39.0-53.0) Mean Corpuscular Volume 90 fL (79-100) Mean Corpuscular Hemoglobin 30 pg (25-35) Mean Corpuscular Hemoglobin Concent 33 g/dL (31-37) Red Cell Distribution Width 13.7 % (11.5-14.5) Platelet Count 216 x10^3/uL (140-400) Prothrombin Time 16.8 SEC (11.7-14.0) Prothromb Time International Ratio 1.4 (0.8-1.1) Sodium Level 139 mmol/L (136-145) Potassium Level 4.3 mmol/L (3.5-5.1) Chloride Level 103 mmol/L (98-107) Carbon Dioxide Level 25 mmol/L (21-32) Anion Gap 11 (6-14) Blood Urea Nitrogen 23 mg/dL (8-26) Creatinine 1.0 mg/dL (0.7-1.3) Estimated GFR (Cockcroft-Gault) 76.5 Glucose Level 200 mg/dL (70-99) Calcium Level 9.1 mg/dL (8.5-10.1) Glucose (Fingerstick) 233 mg/dL (70-99) 226 mg/dL (70-99) 236 mg/dL (70-99) Laboratory Tests Test 07/27/19 17:01 07/27/19 20:31 07/28/19 07:47 Glucose (Fingerstick) 233 mg/dL (70-99) 226 mg/dL (70-99) 236 mg/dL (70-99) Brief Hospital Course Mr. Parsons is a 59 old male admitted for planned conversion of AICD to TOW PICKER-D. He has an EF of 25% and needing RV pacing >50% of the time. His device was successfully converted to [employer]. Yazan biventricular TOW PICKER-D for resynchronization therapy. He is currently biv pacing and overnight his rhythm has been stable. No complains of surgical pain. His left chest surgical incision with small serosanguinous drain, well approximated with steristrips and intact. 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 Neurovascular status to LUE intact with sling in place. Repeat interrogation revealed normal functioning device and no complications. Discussed post procedure instructions and precautions. CHF garcia he is compensated. VSS. Continue with secondary prevention measures. Will resume xarelto and metformin tomorrow. Will see him again in 2 weeks for wound check. Continue home regimen, no changes. Discharge Information Condition at Discharge: Stable Follow Up: Weeks (2) Disposition/Orders: D/C to Home Scheduled Amiodarone Hcl (Amiodarone Hcl) 200 Mg Tablet, 400 MG PO QEVNG for antiarrhythmic, (Reported) Entered as Reported by: AROLDO RAMOS on 02/26/19 1703 Last Taken: Unknown Dose on 07/26/19 Last Action: Continued on 07/27/191918 by Mariel Jimenez Atorvastatin Calcium (Atorvastatin Calcium) 80 Mg Tablet, 1 TAB PO HS for HLD, #30 Ref 5 (Reported) Entered as Reported by: ROGERS COYNE on 02/23/19 0910 Last Taken: Unknown Dose on 07/26/19 Last Action: Converted on 07/27/191918 by Mariel Jimenez Fluoxetine Hcl (Fluoxetine Hcl) 20 Mg Capsule, 20 MG PO QEVNG for , (Reported) Entered as Reported by: ZACKERY FAROOQ on 1/28/20 0805 Last Taken: Unknown Dose on 07/26/19 Last Action: Continued on 07/27/191918 by Mariel Jimenez Levothyroxine Sodium (Levothyroxine Sodium) 75 Mcg Tablet, 1 TAB PO DAILY, #30 Ref 5 (Reported) Entered as Reported by: JAQUELINE BENDER on 08/27/161716 Last Action: Continued on 07/27/191918 by Mariel Jimenez Lisinopril (Lisinopril) 20 Mg Tablet, 1 TAB PO QEVNG, #30 Ref 5 (Reported) Entered as Reported by: JAQUELINE BENDER on 08/27/161716 Last Action: Continued on 07/27/191918 by Mariel Jimenez Metformin Hcl (Metformin Hcl) 500 Mg Tablet, 1,000 MG PO BIDWMEALS for DIABETES, Ref 0 (Reported) Entered as Reported by: ELSA ARRIOLA on 08/16/16 175 Last Action: Reviewed on 07/27/19804 by ZACKERY FAROOQ Metoprolol Succinate (Metoprolol Succinate ( Xl )) 25 Mg Tab.er.24h, 50 MG PO HS for FOR HYPERTENSION, #30 Ref 0 (Reported) Entered as Reported by: RENETTA CHRISTIANSON on 06/10/19 0707 Last Action: Continued on 07/27/191918 by Mariel Jimenez Multivitamin (Multi-Vitamin Daily) 1 Each Tablet, 1 EACH PO DAILY for , (Reported) Entered as Reported by: ZACKERY FAROOQ on 07/27/19804 Last Action: Converted on 07/27/191918 by Mariel Jimenez Rivaroxaban (Xarelto) 20 Mg Tablet, 20 MG PO DAILY for afib, (Reported) Entered as Reported by: ROGERS COYNE on 02/23/19 0910 Last Taken: Unknown Dose on 07/25/19 Last Action: Last Taken Edited on 07/27/19804 by ZACKERY FAROOQ Patient Instructions Patient Instructions Must know & what to expect after device implant: 1. Your surgical dressing should be removed prior to discharge from the hospital, but allow the steri- strips to fall off naturally. 2. Activity restrictions: DO NOT raise arm above shoulder level, lift anything heavier than a gallon of milk, and no push or pull motions such as vacuuming/lawn mowing, no swinging motions (golf), etc for 4 weeks. 3. It is OK to use a cell phone or other electronic devices just be sure you do not store it in a breast pocket on the side where the device was placed. 4. Device will be interrogated prior to your discharge from the hospital and then every 3 months for defibrillators and every 6 months for pacemakers. You may be asked to have your device checked remotely from home as well, but this will depend on your particular physicians preference. 5. You may remove the arm immobilizer the day after device placement. Wear the arm immobilizer/splint at night (during sleep times) for 2 week to prevent unintended arm movement that can cause lead dislodgement. 6. Do not drive for one week as the task of driving may lead to unintended arm motion that may cause lead dislodgement. The seatbelt will also rub against the incision site & cause irritation. 7. It is our recommendation that you utilize Tylenol at home for pain control. You need to call our office if you are having uncontrollable pain at the incision site. 8. Keep your incision clean and dry. It is OK to shower. DO NOT submerge in bath, pool, or hot tub, until cleared by your doctor, as this could lead to increase risk of infection.. It is OK to use regular soap just do not scrub the incision site. Water spray from shower should not directly hit the incision. Be sure to blot dry not rub. 9. Inspect your incision daily. If you notice any increased redness, swelling, or drainage, or if you start running a fever, call the office imme diately. The number is [phone]. 10. For women, if you need to protect against irritation from the bra straps, you can place a piece of gauze over the incision site for cushion. Please be sure to tape it loosely to allow air to the site & remove the gauze when you remove the bra. 11. Be sure to carry your device identification information card in your wallet/purse at all times. 12. It is OK to go through security at the airport with your device, but be sure to let the TSA know prior to proceeding as the security settings change depending on varying factors. Please do whatever is requested by security at that time. 13. Some of the newer devices may be MRI compatible but, currently, the use of these devices is not widespread, so you likely will not be able to have an MRI. Please clarify this with your physician. Special instructions for defibrillator patients: If your device recognizes a rhythm that requires treatment with a shock, you will most likely feel the shock. This is usually not a subtle feeling and it is uncomfortable. Please follow these steps if you receive a shock: Call the office if you receive one shock. Go to the emergency room if you receive two consecutive shocks- please have someone drive you & call 911 if nobody is available- DO NOT drive yourself. Call 911 if you receive more than 2 consecutive shocks. If at any time, you feel lightheaded or dizzy/faint, stop what you are doing & lie down immediately. If you are driving, get to the side of the road quickly, turn your car off & call 911 on your cell phone. DO NOT continue to drive as this may cause an accident that seriously injures yourself &/or others. Call the office at [phone] for any questions or concerns. SEBLE VASQUEZ MD 07/28/191917: Discharge Summary Brief Hospital Course Brief Hospital Course Patient seen and examined, Agree with HOME COMPANION's assessment and plan. s/p AICD upgrade to BiV/TOW PICKER-D yesterday CXR without any pneumothorax Device interrogation showed normal function Incision looks good DC home and FU for wound check in 2 weeks Discharge Information Scheduled Amiodarone Hcl (Amiodarone Hcl) 200 Mg Tablet, 400 MG PO QEVNG for antiarrhythmic, (Reported) Entered as Reported by: AROLDO RAMOS on 02/26/19 1703 Last Taken: Unknown Dose on 07/26/19 Last Action: Continued on 07/27/191918 by Mariel Jimenez Atorvastatin Calcium (Atorvastatin Calcium) 80 Mg Tablet, 1 TAB PO HS for HLD, #30 Ref 5 (Reported) Entered as Reported by: ROGERS COYNE on 02/23/19 0910 Last Taken: Unknown Dose on 07/26/19 Last Action: Converted on 07/27/191918 by Mariel Jimenez Fluoxetine Hcl (Fluoxetine Hcl) 20 Mg Capsule, 20 MG PO QEVNG for , (Reported) Entered as Reported by: ZACKERY FAROOQ on 1/28/20 0805 Last Taken: Unknown Dose on 07/26/19 Last Action: Continued on 07/27/191918 by Mariel Jimenez Levothyroxine Sodium (Levothyroxine Sodium) 75 Mcg Tablet, 1 TAB PO DAILY, #30 Ref 5 (Reported) Entered as Reported by: JAQUELINE BENDER on 08/27/161716 Last Action: Continued on 07/27/191918 by Mariel Jimenez Lisinopril (Lisinopril) 20 Mg Tablet, 1 TAB PO QEVNG, #30 Ref 5 (Reported) Entered as Reported by: JAQUELINE BENDER on 08/27/161716 Last Action: Continued on 07/27/191918 by Mariel Jimenez Metformin Hcl (Metformin Hcl) 500 Mg Tablet, 1,000 MG PO BIDWMEALS for DIABETES, Ref 0 (Reported) Entered as Reported by: ELSA ARRIOLA on 08/16/16 175 Last Action: Reviewed on 07/27/19804 by ZACKERY FAROOQ Metoprolol Succinate (Metoprolol Succinate ( Xl )) 25 Mg Tab.er.24h, 50 MG PO HS for FOR HYPERTENSION, #30 Ref 0 (Reported) Entered as Reported by: RENETTA CHRISTIANSON on 06/10/19 0707 Last Action: Continued on 07/27/191918 by Mariel Jimenez Multivitamin (Multi-Vitamin Daily) 1 Each Tablet, 1 EACH PO DAILY for , (Reported) Entered as Reported by: ZACKERY FAROOQ on 07/27/19804 Last Action: Converted on 07/27/191918 by Mariel Jimenez Rivaroxaban (Xarelto) 20 Mg Tablet, 20 MG PO DAILY for afib, (Reported) Entered as Reported by: ROGERS COYNE on 02/23/19 0910 Last Taken: Unknown Dose on 07/25/19 Last Action: Last Taken Edited on 07/27/19804 by CHRISTIAN MARIANO APRN Jul 28, 2019 11:28 SEBLE VASQUEZ MD Jul 28, 2019 19:18
--- NOTE | 2019-07-28 12:58 | NUR ---
Discharge Note: ALONSO GALEANO [address] Discharge instructions and discharge home medications reviewed with Patient and a copy given. All questions have been answered and understanding verbalized.
== END 2019-07-28 12:50 | disposition home or self-care (01) ==
LOC: CCL 07:07 → 2 SOUTH 08:40
PROVIDERS: ADMIT Internal Medicine Cardiovascular Disease; ATTEND Internal Medicine Cardiovascular Disease
DX: I25.5 Ischemic cardiomyopathy (principal); T82.9XXA Unspecified complication of cardiac and vascular prosthetic device, implant and graft, initial encounter; I48.0 Paroxysmal atrial fibrillation; E03.9 Hypothyroidism, unspecified
CPT/HCPCS: 33264; 36415; 71045; 71046; 80048; 82962; 85027; 85610; 93005; 96365; 96366; 96375; 96376; C1769; C1882; C1900; G0378; G0379; J0690; J2250; J3010; J3490; J7050; Q9967; 33224; 33225; 93566; 99152; 99153; J7030